=== PATIENT | male | born 1955 | race Two or more races ===

== ENCOUNTER 2023-11-02 20:59 | Inpatient (IN) ==
[2023-11-02 21:46] LABS: Basophils # (auto) 0.03 K/uL (0.00-0.20); Basophils % (auto) 0.9 %; Eosinophils # (auto) 0.12 K/uL (0.00-0.50); Eosinophils % (auto) 3.7 %; Hematocrit (blood only) 26.6 % (42.0-52.0); Hemoglobin 7.6 g/dl (14.0-18.0); Immature Granulocytes # (auto) 0.02 K/uL (0.01-0.20); Immature Granulocytes % (auto) 0.6 %; Lymphocytes # (auto) 0.85 K/uL (1.20-3.40); Lymphocytes % (auto) 26.3 %; Mean Corpuscular Hemoglobin 21.5 pg (25.0-34.0); Mean Corpuscular Hgb Conc 28.6 g/dL (32.0-36.0); Mean Corpuscular Volume 75.1 fL (80.0-100.0); Mean Platelet Volume 9.7 fL (9.4-12.4); Monocytes # (auto) 0.32 K/uL (0.11-0.59); Monocytes % (auto) 9.9 %; Neutrophils # (auto) 1.89 K/uL (1.40-6.50); Neutrophils % (auto) 58.6 %; Platelet Count 102 K/uL (130-400); RDW Coefficient of Variation 21.8 % (11.5-14.5); Red Blood Count 3.54 M/uL (4.70-6.10); White Blood Count 3.23 K/ul (4.8-10.8)
[2023-11-02 21:51] LABS: Potassium 4.5 mmol/L (3.5-5.1)
[2023-11-02 21:58] LABS: Troponin I High Sensitivity 9.5 pg/ml (0-20)
[2023-11-02 22:06] LABS: INR 1.1 (0.9-1.1); Partial Thromboplastin Time 27 Seconds (21-31); Prothrombin Time 12.1 Seconds (9.0-12.0)
[2023-11-02 22:07] LABS: Thyroid Stimulating Hormone 0.311 uIu/ml (0.300-4.500)
[2023-11-02] MEDS: PANTOprazole 40 MG in SYRINGE 0 ML IV ONE (22:13)
[2023-11-02 22:22] LABS: Hypochromasia Present
[2023-11-02 22:33] LABS: Albumin Globulin Ratio 1.1 (0.9-2); Albumin Level 3.9 gm/dl (3.4-5.0); BUN Creatinine Ratio 16.4 (10-20); Bilirubin,Total 0.5 mg/dl (0.2-1.0); Calcium 9.4 mg/dl (8.6-10.3); Creatinine Clr Calc Pharmacy 74.6 ml/min; Est GFR (African American) 74.6 ml/min; Est GFR (Non-African American) 64.3 ml/min; Globulin 3.7 gm/dl (2.5-4.0); Magnesium 1.8 mg/dl (1.7-2.4); Total Protein 7.6 gm/dl (6.0-8.3)
--- NOTE | 2023-11-02 22:35 | Emergency Department Note ---
History of Present Illness General Chief complaint: Dizziness Stated complaint: HEMOGLOBIN LOW Time Seen by Provider: 11/02/23 21:49 History of Present Illness This 68-year-old male with diabetes anemia and cirrhosis presents ER complaining of lightheadedness and dizziness with anemia. Patient states he feels off balance and unsteady with his gait. He has to walk with a walker. Last blood transfusion was a year ago. He recently started on iron. He is currently being worked up by the shaft repairer for his anemia. Patient denies chest pain, fever, chills, current leg swelling. At the beginning the month his H&H was 6.9 and 24 at [facility]. No black or blood in the stool. Home Medications Medication Instructions Recorded Confirmed Type aspirin 81 mg capsule 81 mg PO DAILY 05/28/23 10/14/23 History atorvastatin 10 mg tablet 10 mg PO DAILY 05/28/23 10/14/23 History ezetimibe 10 mg tablet 10 mg PO DAILY 05/28/23 10/14/23 History meclizine 12.5 mg tablet 12.5 mg PO TID PRN Dizziness 05/28/23 10/14/23 History metformin 500 mg tablet 500 mg PO BID 05/28/23 10/14/23 History metoprolol succinate 50 mg 50 mg PO DAILY 05/28/23 10/14/23 History tablet,extended release 24 hr multivitamin 1 tab PO DAILY 05/28/23 10/14/23 History pantoprazole 40 mg tablet,delayed 40 mg PO DAILY 05/28/23 10/14/23 History release quetiapine 25 mg tablet 25 mg PO HS 05/28/23 10/14/23 History valsartan 40 mg tablet 40 mg PO DAILY 05/28/23 10/14/23 History levocetirizine 5 mg tablet 5 mg PO DAILY PRN allergy symptoms 07/15/23 10/14/23 Rx #30 tabs umeclidinium 62.5 mcg-vilanterol 1 inh inhalation DAILY #60 ea 07/15/23 10/14/23 Rx 25 mcg/actuation powdr for inhalation (Anoro Ellipta) zolpidem 5 mg tablet 5 mg PO HS PRN sleep 08/01/23 10/14/23 History finasteride 5 mg tablet 5 mg PO DAILY #30 tabs 10/14/23 10/14/23 Rx tamsulosin 0.4 mg capsule 0.4 mg PO HS #30 caps 10/14/23 10/14/23 Rx Allergies Allergy/AdvReac Type Severity Reaction Status Date / Time NKA AdvReac Mild none Uncoded 10/14/23 13:45 Past Med/Surg History Problem List (Updated 11/03/23 @ 00:15 by Ludy Lepe PA-C) Anemia (Acute) Dizziness (Acute) Ex-smoker Exertional shortness of breath Urinary frequency Medical History Allergic rhinitis with postnasal drip Insomnia COPD with emphysema Lower urinary tract symptoms (LUTS) Urinary incontinence Surgical History S/P placement of cardiac pacemaker Family History Other No pertinent family history Social History Smoking Status: Former smoker Tobacco Type: Cigarettes Age Started Using Tobacco: 19; Age Quit Using Tobacco: 62; packs per day: 1; Second Hand Exposure: Yes; Do You Dip or Chew Tobacco: No; Hx Alcohol Use: Yes (none since 12/21/23) Hx Substance Use: No Preferred Language: Faroese Feels Safe at Home: Yes Review of Systems A total of 10 systems reviewed and were otherwise negative Physical Exam Vital Signs Vital Signs - 24 hr 11/02/23 21:03 11/02/23 22:39 Temperature 36.5 C Temperature Source Temporal Artery Scan Pulse Rate 70 Pulse Rate [Finger] 68 Respiratory Rate 18 18 Respiratory Effort / Characteristics Non-Labored Spontaneous Non-Labored Spontaneous Respiratory Depth Normal Normal Blood Pressure 137/79 Blood Pressure Mean 98 Blood Pressure Position Sitting Pulse Oximetry 98 97 Oxygen Delivery Method Room Air Room Air Sepsis Recent Fever Within 48 Hours No Sepsis New/Unexplained Change in Mental Status N/A Sepsis Action Taken by Nursing No Action Required VITALS: Vitals are noted on the nurse's note and reviewed by myself. Vital signs stable. GENERAL: Pleasant patient, in no acute distress, nondiaphoretic, well-developed well-nourished. SKIN: Capillary reflex less than 2 seconds. HEENT: Normocephalic. PERRLA. EOMI. Nares patent. Mucous membranes moist. Neck is supple without nuchal rigidity. HEART: Regular rate and rhythm LUNGS: Clear to auscultation bilaterally without wheezes, rales or rhonchi. No retractions or accessory muscle use. ABDOMEN: Positive bowel sounds x 4. Normal tympanic percussion. Soft, nontender, without masses or organomegaly. Roberts sign negative. No guarding or rebound tenderness. no CVA tenderness MUSCULOSKELETAL: No gross musculoskeletal defects. NEURO: Patient was alert and oriented to person place and time. No focal neurological deficits. Course Administered Medications Discontinued Medications Pantoprazole Sodium 40 mg/ (Syringe) 10 mls @ 5 mls/min IV NOW ONE Stop: 11/02/23 22:00 Last Admin: 11/02/23 22:13 Dose: 5 mls/min Documented By: STANLEY Ioversol (Optiray 320 125ml) 125 ml IV ONCE ONE Stop: 11/02/23 23:06 Last Admin: 11/02/23 23:05 Dose: 118 ml Documented By: DENISE Medical Decision Making Medical Records Attestation: I reviewed the patient's medical records. Home Medications Current Medication List: was personally reviewed by me Laboratory Data Attestation: I reviewed the patient's lab results. 11/02/23 21:20 11/02/23 21:20 Lab Results 11/02/23 11/02/23 Range/Units 21:20 22:27 WBC 3.23 L (4.8-10.8) K/ul RBC 3.54 L (4.70-6.10) M/uL Hgb 7.6 L (14.0-18.0) g/dl Hct 26.6 L (42.0-52.0) % MCV 75.1 L (80.0-100.0) fL MCH 21.5 L (25.0-34.0) pg MCHC 28.6 L (32.0-36.0) g/dL RDW Std Deviation 58.0 H (36.4-46.3) fL RDW Coeff of Facundo 21.8 H (11.5-14.5) % Plt Count 102 L (130-400) K/uL MPV 9.7 (9.4-12.4) fL Immature Gran % (Auto) 0.6 % Neut % (Auto) 58.6 % Lymph % (Auto) 26.3 % [place] % (Auto) 9.9 % Eos % (Auto) 3.7 % Baso % (Auto) 0.9 % Neut # (Auto) 1.89 (1.40-6.50) K/uL Lymph # (Auto) 0.85 L (1.20-3.40) K/uL [place] # (Auto) 0.32 (0.11-0.59) K/uL Eos # (Auto) 0.12 (0.00-0.50) K/uL Baso # (Auto) 0.03 (0.00-0.20) K/uL Immature Gran # (Auto) 0.02 (0.01-0.20) K/uL Hypochromasia Present PT 12.1 H (9.0-12.0) Seconds INR 1.1 (0.9-1.1) APTT 27 (21-31) Seconds PTT Ratio 1.0 Sodium 138 (136-145) mmol/L Potassium 4.5 (3.5-5.1) mmol/L Chloride 108 H (98-107) mmol/L Carbon Dioxide 25 (21-32) mmol/L Anion Gap 5 (3-11) BUN 19 (6-23) mg/dl Creatinine 1.16 (0.6-1.4) mg/dl Est Cr Clr Drug Dosing 74.6 ml/min Est GFR ( Amer) 74.6 ml/min Est GFR (Non-Af Amer) 64.3 ml/min BUN/Creatinine Ratio 16.4 (10-20) Glucose 160 H (70-99(Fasting)) mg/dl Calcium 9.4 (8.6-10.3) mg/dl Magnesium 1.8 (1.7-2.4) mg/dl Total Bilirubin 0.5 (0.2-1.0) mg/dl AST 29 (13-39) U/L ALT 18 (7-52) U/L Alkaline Phosphatase 66 (34-104) U/L Troponin I High Sens 9.5 (0-20) pg/ml Total Protein 7.6 (6.0-8.3) gm/dl Albumin 3.9 (3.4-5.0) gm/dl Globulin 3.7 (2.5-4.0) gm/dl Albumin/Globulin Ratio 1.1 (0.9-2) TSH 0.311 (0.300-4.500) uIu/ml Blood Type A Positive Antibody Screen NEGATIVE Imaging Data Attestation: I personally reviewed and interpreted this imaging study as follows: Radiologist's Impression: Head CT 11/02/23 21:59 CR Exam(s): CT HEAD Without Contrast EXAM: CT Head Without Intravenous Contrast CLINICAL HISTORY: Reason for exam: neuro deficit, acute stroke suspected. TECHNIQUE: Axial computed tomography images of the head/brain without intravenous contrast. CTDI is 34.77 mGy and DLP is 624.41 mGy-cm. Automated exposure control was utilized for the study. A dose lowering technique was utilized adhering to the principles of ALARA. COMPARISON: CTA brain: 08/01/2023 FINDINGS: Diagnostic sensitivity of the exam is reduced by the motion artifact. Brain: Probably two subacute/old lacunar infarcts of the left basal ganglia, these are new since prior comparison. There is no acute intracranial hemorrhage, mass-effect or midline shift. Mild/moderate cerebral atrophy with widening of the extra-axial spaces and ventricular dilatation. There is no extra-axial fluid collections. Bones/joints: Unremarkable. No acute fracture. Soft tissues: Unremarkable. Sinuses: Unremarkable as visualized. No acute sinusitis. Mastoid air cells: Unremarkable as visualized. No mastoid effusion. Atherosclerotic calcified plaques of the intracranial arteries. IMPRESSION: Probably two subacute/old lacunar infarcts of the left basal ganglia. Clinical correlation recommended. Otherwise no acute intracranial abnormality noted. Chronic involutional changes of the brain. . Communications: Call Doctor Stroke Electronically signed by: Renate Martinez MD, DABR 11/03/23 00:57 AM Head CTA 11/02/23 21:59 CR Exam(s): CTA HEAD With Contrast IV Amt: 118 ML OPTIRAY 320 EXAM: CT Angiography Head With Intravenous Contrast CLINICAL HISTORY: Reason for exam: neuro deficit, acute stroke suspected. TECHNIQUE: Axial computed tomographic angiography images of the head with intravenous contrast. CTDI is 31.14 mGy and DLP is 15.57 mGy-cm. Automated exposure control was utilized for the study. A dose lowering technique was utilized adhering to the principles of ALARA. MIP reconstructed images were created and reviewed. CONTRAST: Patient received 118 ML OPTIRAY 320 of IV contrast COMPARISON: CTA head: 08/01/2023. CT brain: 11/02/2023 FINDINGS: Motion artifact. CTA [place] does not demonstrate large vessel occlusion, significant stenosis or aneurysm. Right vertebral artery: Unremarkable as visualized. Left vertebral artery: Unremarkable as visualized. Basilar artery: Unremarkable. No occlusion or significant stenosis. No aneurysm. . IMPRESSION: No large vessel occlusion, significant stenosis or aneurysm. . Communications: Call Doctor Stroke Electronically signed by: Renate Martinez MD, DABR 11/03/23 00:39 AM Neck CTA 11/02/23 21:59 CR Exam(s): CTA NECK With Contrast IV Amt: 118 ML OPTIRAY 320 EXAM: CT Angiography Neck With Intravenous Contrast CLINICAL HISTORY: Reason for exam: neuro deficit, acute stroke suspected. TECHNIQUE: Routine carotid CT angiography protocol was performed with intravenous contrast. NASCET criteria using the distal ICAs for comparison were used for evaluation of stenoses. CTDI is 13.32 mGy and DLP is 533.26 mGy-cm. Automated exposure control was utilized for the study. A dose lowering technique was utilized adhering to the principles of ALARA. MIP reconstructed images were created and reviewed. CONTRAST: Patient received 118 ML OPTIRAY 320 of IV contrast COMPARISON: 08/01/2019 FINDINGS: Motion-induced image degradation. VASCULATURE: A 3.8 cm ectatic ascending aorta. Calcified plaques of the aortic arch. Right common carotid artery: Unremarkable. No occlusion or significant stenosis. No dissection. Right internal carotid artery: Atherosclerotic calcification with moderate grade stenosis in the clinoid segment of the right ICA.. Extracranial ICA segment: No occlusion or dissection. Right external carotid artery: No occlusion. Right vertebral artery: Atherosclerotic calcification at the origin of the right vertebral artery with moderately high-grade stenosis.. No occlusion. No dissection. Left common carotid artery: No occlusion or significant stenosis. No dissection. Calcified plaques of the carotid bulb. Left internal carotid artery: Atheromatous calcification at the proximal left ICA. Moderate stenosis of the left glenoid/supraclinoid ICA.. Extracranial segment is with no occlusion. No dissection. Left external carotid artery: No occlusion. Left vertebral artery: Atherosclerotic calcification at the origin of the left vertebral artery with moderately high-grade stenosis. No occlusion. No dissection. NECK: Bones/joints: No acute fracture. Multilevel moderate degenerative spondylitic changes. Soft tissues: Unremarkable. Lung apices: Pulmonary emphysema. [place] thickening/mild dilatation/mild bronchiectasis. Other findings: A 1.8 cm right thyroid low-density nodule. A somewhat dilated/patulous air-filled esophagus. CAROTID STENOSIS REFERENCE USING NASCET CRITERIA: % ICA stenosis = (1 - narrowest ICA diameter/diameter of distal cervical ICA) x 100. Mild - <50% stenosis. Moderate - 50-69% stenosis. Severe - 70-94% stenosis. Near occlusion - 95-99% stenosis. Occluded - 100% stenosis. IMPRESSION: . Moderately high-grade stenosis within the clinoid segments of the right and left ICAs secondary to calcified plaques. Moderate grade stenosis at the origin of the vertebral arteries. Moderate degenerative cervical spondylitic changes. A 1.8 cm right thyroid lobe nodule. Sonographic correlation is recommended. Communications: Call Doctor Stroke Electronically signed by: Renate Martinez MD, DABR 11/03/23 00:25 AM MDM Narrative Prior records/ancillary studies reviewed and summarized above. Nursing notes reviewed. Additional history obtained from family. The patient's history was concerning for lightheadedness, dizziness, weakness, anemia. Differential diagnosis: Etiologies such as metabolic, infection, hypo/hyperglycemia, electrolyte abnormalities, cardiac sources, intracerebral event, toxicologic, neurologic, as well as others were entertained. Physical examination: As above. ER treatment provided: IV Lock An order was placed for continuous cardiac monitoring. The monitor shows a rate of 60-100 with a sinus rhythm per my interpretation. Protonix was ordered On reassessment the patient felt better. Diagnostics interpretation by me: ECG: Ordered for dizziness EKG: Atrial paced rhythm nonspecific intraventricular block rate of 68. Impression atrial paced rate of 68 independently interpreted by myself The labs Independently Interpreted by myself revealed stable anemia per chart review Negative troponin Imaging studies: Chest x-ray with no acute consolidation, pneumothorax or free air per my independent interpretation CTs as above Consultation: A consultation was placed with the hospitalist. The case was discussed and diagnostics were reviewed. The patient was evaluated in the ER for further treatment. Exam and history seem consistent with dizziness with difficulty walking and anemia. Imaging is unchanged. MRI was ordered. H&H is stable per chart review. Medicine was consulted and case discussed. Patient admitted to the medical service. By the evaluation outlined above emergent etiologies such as infection, electrolyte abnormalities, cardiac sources, intracerebral event, toxologic, abnormalities blood glucose, metabolic, as well as others were deemed relatively unlikely. The pt informed about the findings as listed above. All questions were answered and pleased with the treatment. The chart was completed utilizing [employer] Speech voice recognition software. Grammatical errors, random word insertions, pronoun errors, and incomplete sentences are an occassional consequence of this system due to software limitations, ambient noise, and hardware issues. Any formal questions or concerns about the content, text, or information contained within the body of this dictation should be directly addressed to the physician tiler's assistant for clarification. Impression & Plan Dizziness, Anemia Discharge Plan Visit Data Chief Complaint: Dizziness Stated Complaint: HEMOGLOBIN LOW ED Provider: Davis Fajardo ED Midlevel Provider: Ludy Lepe Discharge Problem: Dizziness, Anemia Patient Disposition: Admitted As Inpatient Condition: Good Forms Stand Alone Forms: [facility] Code Fever Prescriptions Prescriptions: No Action Anoro Ellipta 62.5-25 mcg/actuation blister with device 1 inh inhalation DAILY Qty: 60 6RF aspirin 81 mg capsule 81 mg PO DAILY atorvastatin 10 mg tablet 10 mg PO DAILY ezetimibe 10 mg tablet 10 mg PO DAILY meclizine 12.5 mg tablet 12.5 mg PO TID PRN (Reason: Dizziness) metformin 500 mg tablet 500 mg PO BID metoprolol succinate 50 mg tablet extended release 24 hr 50 mg PO DAILY multivitamin Tablet 1 tab PO DAILY pantoprazole 40 mg tablet,delayed release (DR/EC) 40 mg PO DAILY quetiapine 25 mg tablet 25 mg PO HS valsartan 40 mg tablet 40 mg PO DAILY levocetirizine 5 mg tablet 5 mg PO DAILY PRN (Reason: allergy symptoms) Qty: 30 0RF Rx Instructions: Take daily for 10 days then PRN finasteride 5 mg tablet 5 mg PO DAILY Qty: 30 5RF tamsulosin 0.4 mg capsule 0.4 mg PO HS Qty: 30 5RF zolpidem 5 mg tablet 5 mg PO HS PRN (Reason: sleep) Referrals Referrals: Charley Garcia DO [Primary Care Provider] -
[2023-11-02] MEDS: OPTIRAY 320 125ml IV ONE (23:05)
--- NOTE | 2023-11-03 00:26 | CT Scan Report ---
Exam(s): CTA NECK With Contrast IV Amt: 118 ML OPTIRAY 320 EXAM: CT Angiography Neck With Intravenous Contrast CLINICAL HISTORY: Reason for exam: neuro deficit, acute stroke suspected. TECHNIQUE: Routine carotid CT angiography protocol was performed with intravenous contrast. NASCET criteria using the distal ICAs for comparison were used for evaluation of stenoses. CTDI is 13.32 mGy and DLP is 533.26 mGy-cm. Automated exposure control was utilized for the study. A dose lowering technique was utilized adhering to the principles of ALARA. MIP reconstructed images were created and reviewed. CONTRAST: Patient received 118 ML OPTIRAY 320 of IV contrast COMPARISON: 08/01/2019 FINDINGS: Motion-induced image degradation. VASCULATURE: A 3.8 cm ectatic ascending aorta. Calcified plaques of the aortic arch. Right common carotid artery: Unremarkable. No occlusion or significant stenosis. No dissection. Right internal carotid artery: Atherosclerotic calcification with moderate grade stenosis in the clinoid segment of the right ICA.. Extracranial ICA segment: No occlusion or dissection. Right external carotid artery: No occlusion. Right vertebral artery: Atherosclerotic calcification at the origin of the right vertebral artery with moderately high-grade stenosis.. No occlusion. No dissection. Left common carotid artery: No occlusion or significant stenosis. No dissection. Calcified plaques of the carotid bulb. Left internal carotid artery: Atheromatous calcification at the proximal left ICA. Moderate stenosis of the left glenoid/supraclinoid ICA.. Extracranial segment is with no occlusion. No dissection. Left external carotid artery: No occlusion. Left vertebral artery: Atherosclerotic calcification at the origin of the left vertebral artery with moderately high-grade stenosis. No occlusion. No dissection. NECK: Bones/joints: No acute fracture. Multilevel moderate degenerative spondylitic changes. Soft tissues: Unremarkable. Lung apices: Pulmonary emphysema. [place] thickening/mild dilatation/mild bronchiectasis. Other findings: A 1.8 cm right thyroid low-density nodule. A somewhat dilated/patulous air-filled esophagus. CAROTID STENOSIS REFERENCE USING NASCET CRITERIA: % ICA stenosis = (1 - narrowest ICA diameter/diameter of distal cervical ICA) x 100. Mild - <50% stenosis. Moderate - 50-69% stenosis. Severe - 70-94% stenosis. Near occlusion - 95-99% stenosis. Occluded - 100% stenosis. IMPRESSION: . Moderately high-grade stenosis within the clinoid segments of the right and left ICAs secondary to calcified plaques. Moderate grade stenosis at the origin of the vertebral arteries. Moderate degenerative cervical spondylitic changes. A 1.8 cm right thyroid lobe nodule. Sonographic correlation is recommended. Communications: Call Doctor Stroke Electronically signed by: Renate Martinez MD, DABR 11/03/23 00:25 AM
--- NOTE | 2023-11-03 00:41 | CT Scan Report ---
Exam(s): CTA HEAD With Contrast IV Amt: 118 ML OPTIRAY 320 EXAM: CT Angiography Head With Intravenous Contrast CLINICAL HISTORY: Reason for exam: neuro deficit, acute stroke suspected. TECHNIQUE: Axial computed tomographic angiography images of the head with intravenous contrast. CTDI is 31.14 mGy and DLP is 15.57 mGy-cm. Automated exposure control was utilized for the study. A dose lowering technique was utilized adhering to the principles of ALARA. MIP reconstructed images were created and reviewed. CONTRAST: Patient received 118 ML OPTIRAY 320 of IV contrast COMPARISON: CTA head: 08/01/2023. CT brain: 11/02/2023 FINDINGS: Motion artifact. CTA [place] does not demonstrate large vessel occlusion, significant stenosis or aneurysm. Right vertebral artery: Unremarkable as visualized. Left vertebral artery: Unremarkable as visualized. Basilar artery: Unremarkable. No occlusion or significant stenosis. No aneurysm. . IMPRESSION: No large vessel occlusion, significant stenosis or aneurysm. . Communications: Call Doctor Stroke Electronically signed by: Renate Martinez MD, DABR 11/03/23 00:39 AM
--- NOTE | 2023-11-03 00:57 | CT Scan Report ---
Exam(s): CT HEAD Without Contrast EXAM: CT Head Without Intravenous Contrast CLINICAL HISTORY: Reason for exam: neuro deficit, acute stroke suspected. TECHNIQUE: Axial computed tomography images of the head/brain without intravenous contrast. CTDI is 34.77 mGy and DLP is 624.41 mGy-cm. Automated exposure control was utilized for the study. A dose lowering technique was utilized adhering to the principles of ALARA. COMPARISON: CTA brain: 08/01/2023 FINDINGS: Diagnostic sensitivity of the exam is reduced by the motion artifact. Brain: Probably two subacute/old lacunar infarcts of the left basal ganglia, these are new since prior comparison. There is no acute intracranial hemorrhage, mass-effect or midline shift. Mild/moderate cerebral atrophy with widening of the extra-axial spaces and ventricular dilatation. There is no extra-axial fluid collections. Bones/joints: Unremarkable. No acute fracture. Soft tissues: Unremarkable. Sinuses: Unremarkable as visualized. No acute sinusitis. Mastoid air cells: Unremarkable as visualized. No mastoid effusion. Atherosclerotic calcified plaques of the intracranial arteries. IMPRESSION: Probably two subacute/old lacunar infarcts of the left basal ganglia. Clinical correlation recommended. Otherwise no acute intracranial abnormality noted. Chronic involutional changes of the brain. . Communications: Call Doctor Stroke Electronically signed by: Renate Martinez MD, DABR 11/03/23 00:57 AM
--- NOTE | 2023-11-03 01:06 | Emergency Department Note ---
ED Visit Note Patient seen in conjunction with physician service center assistant HPI: Patient 68-year-old male presenting with complaint of lightheadedness and dizziness. Exam: Normal rate, normal rhythm, lungs clear to auscultation, cranial nerves intact, 5 out of 5 muscle strength upper and lower extremities bilaterally, Intact sensation upper and lower extremities bilaterally A&P: Patient had blood work and CT scans of head with and without contrast. Plan for admission to hospital Dx: Dizziness, anemia Dispo: Admit I agree with the physician assistants work-up and treatment plan. Please see their note for more detailed exam findings. I performed a substantive portion of the visit including all aspects of medical decision making. .
--- NOTE | 2023-11-03 01:53 | History & Physical Report ---
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 CTA neck also shows moderate grade stenosis at the origin of the vertebral arteries The patient will be admitted to telemetry for serial cardiac enzymes, serial EKG's, cardiac rhythm monitoring and a 2-D echocardiogram with Dopplers. Most recent echocardiogram on 04/15/2023 with ejection fraction 55%, and grade 1 diastolic dysfunction MRI of brain will be ordered in the a.m. after cardiology and [employer] consults placing AICD in MRI compatible mode Increase atorvastatin from 10 to 40 mg daily Pancytopenia- Hemoglobin was at a low of 6.9 in March, but since has been 7.7 on 07/31, 7.4 and 08/28, and today 7.6 Patient reportedly had begun an outpatient evaluation for anemia For now, order iron studies, reticulocyte panel, B12, folate and peripheral sm ear to begin the process Laboratories could be consistent with MDS Will consult hematology oncology Monomorphic V. tach/status post AICD/ischemic-nonischemic cardiomyopathy/CAD hypertension- Telemetry admission Continue aspirin, metoprolol succinate, valsartan Diabetes mellitus- Hold metformin Check hemoglobin A1c Placed on Accu-Cheks with NovoLog SSI Hyperlipidemia- Change atorvastatin from 10 to 40 mg for high dose Continue Zetia 10 mg daily Check a fasting lipid panel Q fever- Laboratories performed on 08/01/2023 in the emergency department are positive for this diagnosis He had been given 14 days of doxycycline orally Undetermined at this point he contracted Q fever or whether this is a false positive Could consider consult with infectious disease for their opinion History of Present Illness Chief Complaint: The patient is referred to the emergency department from his outpatient physician due to symptoms of lightheadedness and dizziness, and laboratories revealing anemia. Primary Care Provider: Charley Garcia DO The patient is a 67-year-old male with a past medical history including pancytopenia, mixed ischemic/nonischemic cardiomyopathy, CAD, monomorphic V. tach status post AICD, cirrhosis, CVA alcohol abuse, tobacco abuse, hyperlipidemia, BPH, allergic symptoms, diabetes mellitus, hypertension, GERD and COPD. The patient presents to the emergency department as a referral from outpatient office due to persistent symptoms of lightheadedness and dizziness, and laboratories revealing anemia. He presently is undergoing a workup by hematology regarding ongoing pancytopenia. He denies blood loss in urine or sto ol. His daughter reports that since about 1 week ago he has had new found dizziness and ambulatory dysfunction, which appears to be worse at nighttime when he is walking back from the bathroom at nighttime. Allergies Allergy/AdvReac Type Severity Reaction Status Date / Time No Known Allergies Allergy Verified 11/03/23 03:40 Home Medications Medication Instructions Recorded Confirmed Type aspirin 81 mg capsule 81 mg PO DAILY 05/28/23 11/03/23 History atorvastatin 10 mg tablet 10 mg PO DAILY 05/28/23 11/03/23 History ezetimibe 10 mg tablet 10 mg PO DAILY 05/28/23 11/03/23 History meclizine 12.5 mg tablet 12.5 mg PO TID PRN Dizziness 05/28/23 11/03/23 History metformin 500 mg tablet 500 mg PO BID 05/28/23 11/03/23 History metoprolol succinate 50 mg 50 mg PO DAILY 05/28/23 11/03/23 History tablet,extended release 24 hr multivitamin 1 tab PO DAILY 05/28/23 11/03/23 History pantoprazole 40 mg tablet,delayed 40 mg PO DAILY 05/28/23 11/03/23 History release valsartan 40 mg tablet 40 mg PO DAILY 05/28/23 11/03/23 History levocetirizine 5 mg tablet 5 mg PO DAILY PRN allergy symptoms 07/15/23 11/03/23 Rx #30 tabs umeclidinium 62.5 mcg-vilanterol 1 inh inhalation DAILY #60 ea 07/15/23 11/03/23 Rx 25 mcg/actuation powdr for inhalation (Anoro Ellipta) finasteride 5 mg tablet 5 mg PO DAILY #30 tabs 10/14/23 11/03/23 Rx tamsulosin 0.4 mg capsule 0.4 mg PO HS #30 caps 10/14/23 11/03/23 Rx Past Med/Surg History Problem List (Updated 11/03/23 @ 03:29 by Abdoulaye Rodriguez MD) Cerebrovascular accident (CVA) of left basal ganglia Right thyroid nodule BPH w urinary obs/LUTS Hypertension Diabetes mellitus Monomorphic ventricular tachycardia S/P placement of cardiac pacemaker COPD with emphysema CAD (coronary artery disease) Cardiomyopathy History of tobacco abuse History of alcohol abuse Liver cirrhosis Pancytopenia Ambulatory dysfunction Imbalance Anemia (Acute) Dizziness (Acute) Ex-smoker Exertional shortness of breath Urinary frequency Medical History Allergic rhinitis with postnasal drip Insomnia COPD with emphysema Lower urinary tract symptoms (LUTS) Urinary incontinence Surgical History S/P placement of cardiac pacemaker Family History Other No pertinent family history Social History Smoking Status: Former smoker Tobacco Type: Cigarettes Age Started Using Tobacco: 19; Age Quit Using Tobacco: 62; packs per day: 1; Second Hand Exposure: Yes; Do You Dip or Chew Tobacco: No; Hx Alcohol Use: Yes (none since 12/21/23) Hx Substance Use: No Preferred Language: [place] Feels Safe at Home: Yes Review of Systems Review of Systems: The patient denies chest pain, palpitations, shortness of breath, dyspnea on exertion, cough, lower extremity swelling, sore throat, fevers, chills, sweats, nausea, vomiting, diarrhea , constipation, abdominal pain, pelvic pain, blood in urine or stool, dysuria, urinary frequency or urgency, memory loss, loss of consciousness, rash, abnormal bruising or bleeding, focal weakness, numbness or tingling in arms or legs, generalized arthralgias or myalgias, back or neck pain, or night sweats. The review of systems is otherwise negative other than for that already noted above, and at least 10 systems have been reviewed. Physical Exam Physical Exam: The patient is awake, alert and oriented 3, well developed and well nourished, normocephalic and atraumatic, lying in bed and in no acute distress. HEENT--PERRL, EOMI, mucous membranes and oropharynx normal. Neck--supple. No JVD. No bruits. Thyroid normal, trachea midline, no adenopathy. Heart--normal S1 and S2. No murmurs, rubs or gallops. Lungs--clear bilaterally, no respiratory distress, no accessory muscle use. Abdomen--normal bowel sounds and soft. Nontender. Nondistended, no hernias or masses, no organomegaly. Extremities--No edema. Dermatologic--normal skin turgor, normal color, no abnormal lymph nodes, no rash. Neurologic--cranial nerves II through XII grossly intact. Rheumatologic--normal range of motion. Psychiatric--normal affect. Results & Data Results & Data Vital Signs (Past 12 Hours) Vital Signs Temp Pulse Pulse Resp BP Pulse Ox O2 Del Method 11/02/23 22:39 68 18 97 Room Air 11/02/23 21:03 36.5 C 70 18 137/79 98 Room Air Laboratory Results Laboratory Results WBC 3.23 K/ul (4.8-10.8) L 11/02/23 21:20 RBC 3.54 M/uL (4.70-6.10) L 11/02/23 21:20 Hgb 7.6 g/dl (14.0-18.0) L 11/02/23 21:20 Hct 26.6 % (42.0-52.0) L 11/02/23 21:20 MCV 75.1 fL (80.0-100.0) L 11/02/23 21:20 MCH 21.5 pg (25.0-34.0) L 11/02/23 21:20 MCHC 28.6 g/dL (32.0-36.0) L 11/02/23 21:20 RDW Std Deviation 58.0 fL (36.4-46.3) H 11/02/23 21:20 RDW Coeff of Facundo 21.8 % (11.5-14.5) H 11/02/23 21:20 Plt Count 102 K/uL (130-400) L 11/02/23 21:20 MPV 9.7 fL (9.4-12.4) 11/02/23 21:20 Immature Gran % (Auto) 0.6 % 11/02/23 21:20 Neut % (Auto) 58.6 % 11/02/23 21:20 Lymph % (Auto) 26.3 % 11/02/23 21:20 [place] % (Auto) 9.9 % 11/02/23 21:20 Eos % (Auto) 3.7 % 11/02/23 21:20 Baso % (Auto) 0.9 % 11/02/23 21:20 Neut # (Auto) 1.89 K/uL (1.40-6.50) 11/02/23 21:20 Lymph # (Auto) 0.85 K/uL (1.20-3.40) L 11/02/23 21:20 [place] # (Auto) 0.32 K/uL (0.11-0.59) 11/02/23 21:20 Eos # (Auto) 0.12 K/uL (0.00-0.50) 11/02/23 21:20 Baso # (Auto) 0.03 K/uL (0.00-0.20) 11/02/23 21:20 Immature Gran # (Auto) 0.02 K/uL (0.01-0.20) 11/02/23 21:20 Hypochromasia Present 11/02/23 21:20 PT 12.1 Seconds (9.0-12.0) H 11/02/23 21:20 INR 1.1 (0.9-1.1) 11/02/23 21:20 APTT 27 Seconds (21-31) 11/02/23 21:20 PTT Ratio 1.0 11/02/23 21:20 Sodium 138 mmol/L (136-145) 11/02/23 21:20 Potassium 4.5 mmol/L (3.5-5.1) 11/02/23 21:20 Chloride 108 mmol/L (98-107) H 11/02/23 21:20 Carbon Dioxide 25 mmol/L (21-32) 11/02/23 21:20 Anion Gap 5 (3-11) 11/02/23 21:20 BUN 19 mg/dl (6-23) 11/02/23 21:20 Creatinine 1.16 mg/dl (0.6-1.4) 11/02/23 21:20 Est Cr Clr Drug Dosing 74.6 ml/min 11/02/23 21:20 Est GFR ( Amer) 74.6 ml/min 11/02/23 21:20 Est GFR (Non-Af Amer) 64.3 ml/min 11/02/23 21:20 BUN/Creatinine Ratio 16.4 (10-20) 11/02/23 21:20 Glucose 160 mg/dl (70-99(Fasting)) H 11/02/23 21:20 Calcium 9.4 mg/dl (8.6-10.3) 11/02/23 21:20 Magnesium 1.8 mg/dl (1.7-2.4) 11/02/23 21:20 Total Bilirubin 0.5 mg/dl (0.2-1.0) 11/02/23 21:20 AST 29 U/L (13-39) 11/02/23 21:20 ALT 18 U/L (7-52) 11/02/23 21:20 Alkaline Phosphatase 66 U/L (34-104) 11/02/23 21:20 Troponin I High Sens 9.5 pg/ml (0-20) 11/02/23 21:20 Total Protein 7.6 gm/dl (6.0-8.3) 11/02/23 21:20 Albumin 3.9 gm/dl (3.4-5.0) 11/02/23 21:20 Globulin 3.7 gm/dl (2.5-4.0) 11/02/23 21:20 Albumin/Globulin Ratio 1.1 (0.9-2) 11/02/23 21:20 TSH 0.311 uIu/ml (0.300-4.500) 11/02/23 21:20 Blood Type A Positive 11/02/23 22:27 Antibody Screen NEGATIVE 11/02/23 22:[address] 11/02/23 21:59 CR Exam(s): CT HEAD Without Contrast EXAM: CT Head Without Intravenous Contrast CLINICAL HISTORY: Reason for exam: neuro deficit, acute stroke suspected. TECHNIQUE: Axial computed tomography images of the head/brain without intravenous contrast. CTDI is 34.77 mGy and DLP is 624.41 mGy-cm. Automated exposure control was utilized for the study. A dose lowering technique was utilized adhering to the principles of ALARA. COMPARISON: CTA brain: 08/01/2023 FINDINGS: Diagnostic sensitivity of the exam is reduced by the motion artifact. Brain: Probably two subacute/old lacunar infarcts of the left basal ganglia, these are new since prior comparison. There is no acute intracranial hemorrhage, mass-effect or midline shift. Mild/moderate cerebral atrophy with widening of the extra-axial spaces and ventricular dilatation. There is no extra-axial fluid collections. Bones/joints: Unremarkable. No acute fracture. Soft tissues: Unremarkable. Sinuses: Unremarkable as visualized. No acute sinusitis. Mastoid air cells: Unremarkable as visualized. No mastoid effusion. Atherosclerotic calcified plaques of the intracranial arteries. IMPRESSION: Probably two subacute/old lacunar infarcts of the left basal ganglia. Clinical correlation recommended. Otherwise no acute intracranial abnormality noted. Chronic involutional changes of the brain. . Communications: Call Doctor Stroke Electronically signed by: Renate Martinez MD, DABR 11/03/23 00:57 AM Head CTA 11/02/23 21:59 CR Exam(s): CTA HEAD With Contrast IV Amt: 118 ML OPTIRAY 320 EXAM: CT Angiography Head With Intravenous Contrast CLINICAL HISTORY: Reason for exam: neuro deficit, acute stroke suspected. TECHNIQUE: Axial computed tomographic angiography images of the head with intravenous contrast. CTDI is 31.14 mGy and DLP is 15.57 mGy-cm. Automated exposure control was utilized for the study. A dose lowering technique was utilized adhering to the principles of ALARA. MIP reconstructed images were created and reviewed. CONTRAST: Patient received 118 ML OPTIRAY 320 of IV contrast COMPARISON: CTA head: 08/01/2023. CT brain: 11/02/2023 FINDINGS: Motion artifact. CTA [place] does not demonstrate large vessel occlusion, significant stenosis or aneurysm. Right vertebral artery: Unremarkable as visualized. Left vertebral artery: Unremarkable as visualized. Basilar artery: Unremarkable. No occlusion or significant stenosis. No aneurysm. . IMPRESSION: No large vessel occlusion, significant stenosis or aneurysm. . Communications: Call Doctor Stroke Electronically signed by: Renate Martinez MD, DABVioletta 11/03/23 00:39 AM Neck CTA 11/02/23 21:59 CR Exam(s): CTA NECK With Contrast IV Amt: 118 ML OPTIRAY 320 EXAM: CT Angiography Neck With Intravenous Contrast CLINICAL HISTORY: Reason for exam: neuro deficit, acute stroke suspected. TECHNIQUE: Routine carotid CT angiography protocol was performed with intravenous contrast. NASCET criteria using the distal ICAs for comparison were used for evaluation of stenoses. CTDI is 13.32 mGy and DLP is 533.26 mGy-cm. Automated exposure control was utilized for the study. A dose lowering technique was utilized adhering to the principles of ALARA. MIP reconstructed images were created and reviewed. CONTRAST: Patient received 118 ML OPTIRAY 320 of IV contrast COMPARISON: 08/01/2019 FINDINGS: Motion-induced image degradation. VASCULATURE: A 3.8 cm ectatic ascending aorta. Calcified plaques of the aortic arch. Right common carotid artery: Unremarkable. No occlusion or significant stenosis. No dissection. Right internal carotid artery: Atherosclerotic calcification with moderate grade stenosis in the clinoid segment of the right ICA.. Extracranial ICA segment: No occlusion or dissection. Right external carotid artery: No occlusion. Right vertebral artery: Atherosclerotic calcification at the origin of the right vertebral artery with moderately high-grade stenosis.. No occlusion. No dissection. Left common carotid artery: No occlusion or significant stenosis. No dissection. Calcified plaques of the carotid bulb. Left internal carotid artery: Atheromatous calcification at the proximal left ICA. Moderate stenosis of the left glenoid/supraclinoid ICA.. Extracranial segment is with no occlusion. No dissection. Left external carotid artery: No occlusion. Left vertebral artery: Atherosclerotic calcification at the origin of the left vertebral artery with moderately high-grade stenosis. No occlusion. No dissection. NECK: Bones/joints: No acute fracture. Multilevel moderate degenerative spondylitic changes. Soft tissues: Unremarkable. Lung apices: Pulmonary emphysema. [place] thickening/mild dilatation/mild bronchiectasis. Other findings: A 1.8 cm right thyroid low-density nodule. A somewhat dilated/patulous air-filled esophagus. CAROTID STENOSIS REFERENCE USING NASCET CRITERIA: % ICA stenosis = (1 - narrowest ICA diameter/diameter of distal cervical ICA) x 100. Mild - <50% stenosis. Moderate - 50-69% stenosis. Severe - 70-94% stenosis. Near occlusion - 95-99% stenosis. Occluded - 100% stenosis. IMPRESSION: . Moderately high-grade stenosis within the clinoid segments of the right and left ICAs secondary to calcified plaques. Moderate grade stenosis at the origin of the vertebral arteries. Moderate degenerative cervical spondylitic changes. A 1.8 cm right thyroid lobe nodule. Sonographic correlation is recommended. Communications: Call Doctor Stroke Electronically signed by: Renate Martinez MD, DABR 11/03/23 00:25 AM Code Status & VTE Plan Code Status Full code VTE Prophylaxis Plan VTE Prophylaxis will be ordered: Yes PG Care Time/CCT Total # of Minutes Spent Total Time Spent with Patient: Total time spent is greater than 50% in coordination of care (as documented) at patient's floor/unit and/or counseling patient: Coding Level of Care Code 73930 INT INP/OBS CARE 3/75MIN Diagnoses Imbalance R26.89 Ambulatory dysfunction R26.2 Pancytopenia D61.818 Liver cirrhosis K74.60 History of alcohol abuse F10.11 History of tobacco abuse Z87.891 Cardiomyopathy I42.9 CAD (coronary artery disease) I25.10 Monomorphic ventricular tachycardia I47.29 S/P placement of cardiac pacemaker Z95.0 COPD with emphysema J43.9 Diabetes mellitus E11.9 Hypertension I10 BPH w urinary obs/LUTS N40.1; N13.8 Right thyroid nodule E04.1 Cerebrovascular accident (CVA) of left basal ganglia I63.81
[2023-11-03] MEDS ORDERED: MECLIZINE 12.5 MG TAB PO PRN (03:36)
[2023-11-03] MEDS ORDERED: GLUCAGON FOR INJ 1 MG VIAL SQ PRN (03:37)
[2023-11-03] MEDS ORDERED: DEXTROSE 50% 50 ML SYRINGE IV PRN (03:37)
[2023-11-03] MEDS ORDERED: GLUCOSE 10 TAB/TUBE PO PRN (03:37)
[2023-11-03] MEDS ORDERED: CARBOHYDRATES FOR HYPOGLYCEMIA PO PRN (03:37)
[2023-11-03] MEDS ORDERED: GLUCOSE 40% GEL 15 GM TUBE PO PRN (03:37)
[2023-11-03 03:42] LABS: Basophils # (auto) 0.04 K/uL (0.00-0.20); Eosinophils # (auto) 0.12 K/uL (0.00-0.50); Hemoglobin 7.4 g/dl (14.0-18.0); Immature Granulocytes # (auto) 0.02 K/uL (0.01-0.20); Immature Granulocytes % (auto) 0.5 %; Immature Retic Fraction 36.9 % (2.3-15.9); Lymphocytes # (auto) 1.12 K/uL (1.20-3.40); Mean Corpuscular Hemoglobin 21.2 pg (25.0-34.0); Mean Corpuscular Hgb Conc 28.5 g/dL (32.0-36.0); Mean Corpuscular Volume 74.5 fL (80.0-100.0); Monocytes # (auto) 0.45 K/uL (0.11-0.59); Monocytes % (auto) 11.3 %; Neutrophils # (auto) 2.25 K/uL (1.40-6.50); Neutrophils % (auto) 56.2 %; Platelet Count 100 K/uL (130-400); RDW Coefficient of Variation 21.8 % (11.5-14.5); RDW Standard Deviation 57.8 fL (36.4-46.3); Red Blood Count 3.49 M/uL (4.70-6.10); Reticulated Hemoglobin 25.5 pg (28.2-36.6); Reticulocyte % 2.07 % (0.50-2.00)
[2023-11-03] MEDS ORDERED: CETIRIZINE HCL 10 MG TABLET PO PRN (03:42)
[2023-11-03 03:58] LABS: Albumin Level 3.8 gm/dl (3.4-5.0); BUN Creatinine Ratio 18.1 (10-20); Bilirubin,Total 0.7 mg/dl (0.2-1.0); Calcium 9.1 mg/dl (8.6-10.3); Creatinine Clr Calc Pharmacy 82.4 ml/min; Est GFR (African American) 84.1 ml/min; Est GFR (Non-African American) 72.6 ml/min; Globulin 3.8 gm/dl (2.5-4.0); Potassium 4.1 mmol/L (3.5-5.1); Total Protein 7.6 gm/dl (6.0-8.3)
[2023-11-03 04:56] LABS: Anisocytosis Present; Hypochromasia Present; Polychromasia 2+; Tear Drop Cells 1+
[2023-11-03 05:19] LABS: Folate (Folic Acid),Ser orPlas 21.52 ng/ml (>5.38)
[2023-11-03 05:23] LABS: INR 1.2 (0.9-1.1); Prothrombin Time 12.6 Seconds (9.0-12.0)
[2023-11-03 07:26] LABS: Estimated Average Glucose 148 mg/dl; Hemoglobin A1C 6.8 % (4.5-5.6)
--- NOTE | 2023-11-03 08:07 | XRay Report ---
SINGLE VIEW CHEST CLINICAL HISTORY: Generalized weakness. FINDINGS: An AP, portable, upright chest radiograph is compared to chest x-ray and chest CT dated 08/14. A 2-lead cardiac AICD is unchanged in position. The heart is enlarged noting atherosclerotic calcification of the thoracic aorta. There is prominence of the pulmonary vasculature. Emphysema and chronic interstitial thickening is similar to previous. Scarring/atelectasis is noted at the lung bas es. No airspace consolidation or large pleural effusion is identified. No pneumothorax is seen. The s keletal structures are osteopenic. There are chronic/healed right-sided rib fractures. IMPRESSION: 1. Cardiomegaly and AICD with prominence of the pulmonary vasculature. Correlate clinically for evide nce of fluid overload/congestive change. 2. Emphysema. 3. No airspace consolidation or large pleural effusion is identified. ACT 112: Negative or not required by law. Electronically signed by: Guanakito Blandon M.D. 11/03/2023 8:05 AM
[2023-11-03] MEDS: EZETIMIBE 10 MG TAB PO SCH (08:30)
[2023-11-03] MEDS: ASPIRIN 81 MG ECTAB PO SCH (08:30)
[2023-11-03] MEDS: ATORVASTATIN 40 MG TAB PO SCH (08:30)
[2023-11-03] MEDS: METOPROLOL SUCC 50MG EXT REL TAB PO SCH (08:31)
[2023-11-03] MEDS: FINASTERIDE 5 MG TAB PO SCH (08:31)
[2023-11-03] MEDS: MULTIVITAMIN TAB PO SCH (08:31)
[2023-11-03] MEDS: PANTOprazole 40 MG TAB PO SCH (08:32)
[2023-11-03] MEDS: UMECLIDINIUM/VILANTEROL 62.5/25MCG 7 PUFFS/INHALER INH SCH (08:33)
--- NOTE | 2023-11-03 08:36 | Electrocardiogram Report ---
Test Reason : Blood Pressure : */* mmHG Vent. Rate : 68 BPM Atrial Rate : 66 BPM P-R Int : 314 ms QRS Dur : 138 ms QT Int : 414 ms P-R-T Axes : * -5 7 degrees QTcB Int : 440 ms Atrial-paced rhythm with prolonged AV conduction with occasional Premature ventricular complexes Non-specific intra-ventricular conduction block Minimal voltage criteria for LVH, may be normal variant ( [place] product ) Abnormal ECG When compared with ECG of 29-Aug-2023 13:15, Premature ventricular complexes are now Present Confirmed by Benjamín Anglin ([id number]) on 11/03/2023 8:36:37 AM Referred By: Confirmed By: Benjamín Anglin
[2023-11-03] MEDS: VALSARTAN 80 MG TAB PO SCH (08:39)
[2023-11-03] MEDS: INSULIN ASPART PER UNIT CHARGE SC SCH ×2 (09:46→21:53)
--- NOTE | 2023-11-03 09:51 | Neurology Consultation ---
Date of Consultation November 03, 2023 Assessment & Plan (1) Imbalance: (2) Dizziness: (3) Idiopathic polyneuropathy: (4) New onset of headaches after age 50: (5) Carotid stenosis, bilateral: Plan This patient is admitted with positional vertiginous and lightheaded feelings li rey secondary to his significant iron deficiency anemia. Despite the CT scan report, I am not convinced he has had any new stroke. The pinpoint lesions were not clear or consistent and may have been present on the previous study (if they are real, they are old). This is backed up by Dr. Blandon radiology. On examination he has no focal findings, meningeal signs, or encephalopathy. The patient does have history of numb feet and balance issues with decreased reflexes distally in the legs. I suspect he has an early polyneuropathy from his diabetes. The polyneuropathy could give him a sensory ataxia, thus affecting his balance Patient had with a recent onset of very brief nonspecific headaches, which come and go (currently not with headaches at all). On CT angiography the patient has had significant distal, right greater than left carotid stenosis and proximal bilateral vertebral stenosis. These would put him at risk for stroke including his history of diabetes, cigarette smoking, and hypertension Recommendations: 1. The patient needs an MRI of the brain before I am willing to call an acute or subacute stroke. We have to see if his pacemaker is compatible 2. Continue 81 mg aspirin tablet daily 3. Consider adding clopidogrel 75 mg a day and go with dual antiplatelet therapy (mostly because of his carotid disease) if he has had a stroke. If he has not had a stroke I would probably switch his aspirin to clopidogrel (because of the vascular disease) 4. When his iron deficiency anemia has improved, his dizziness showed improve also. 5. Physical and Occupational Therapy and increase activity as able. Overall, I spent a total of 90 minutes with this case including review of records, review of CT films, direct evaluation of the patient at bedside, report generation, and discussion of the case with the patient and RN at bedside, Dr. Blandon radiology, and Dr. Clark, including differential diagnosis and treatment options. History of Present Illness Reason for Consultation: Patient is a 68-year-old, who was asked to see at the request of Dr. Clark, for neurologic consultation regarding possible stroke Requesting Physician: Dr. Clark Attending Physician: Shannon Clark MD History of Present Illness This patient has a history of alcoholic cirrhosis and longstanding alcohol usage, stopping alcohol, he tells me, approximately 1 year ago. He has a history of significant anemia and iron deficiency (requiring transfusions back in [place] a year ago), hypertension for the last 15 years, and diabetes for the last 4 to 5 years. He had an NC in 2006 and has COPD with emphysema. Patient tells me that he has been getting brief nonspecific bifrontal headaches lasting a minute at a time which come and go anytime during the day. They are not every day. Recently when he stands up or goes from lying to sitting he can have lightheadedness and vertiginous feelings. He does not feel like he is going to faint and is never passed out. Sometimes the room will spin. This will last for a few seconds. He believes that his legs are weak but has no low back pain. There is no asymmetry to the leg weakness. His toes are numb bilaterally. He denies weakness or numbness in the upper extremities. He has been having significant sleep issues. He came to the emergency room on November 01 at 2103, at the request of his PCP Dr Garcia, because of profound anemia on laboratory studies. At that time he was at [facility] getting groceries. Hemoglobin was 7.6 and hematocrit 26.6. Platelet count was low as was the white count. CHEM profile showed a glucose of 160 and TSH was normal at 0.3. CT scan of the head showed "two subacute infarcts in the left basal ganglia not present in the previous study". There were compared to July 2023. In retrospect at least one of the 2 dots may have been present back then. I reviewed these films and reviewed them with Dr. Colby radiology. We are not convinced that these represent subacute infarcts. CT angiography of the head was unremarkable. CT angiography of the neck revealed high-grade stenosis in the clinoid segments of the right greater than left internal carotid arteries as well as some significant stenosis at the origin of both vertebral arteries. These look similar compared to the previous studies of July 2023. Studies in July 2023 were done because of intermittent headaches. An MRI of the brain was not done. Allergies Allergy/AdvReac Type Severity Reaction Status Date / Time No Known Allergies Allergy Verified 11/03/23 03:40 Home Medications Medication Instructions Recorded Confirmed Type aspirin 81 mg capsule 81 mg PO DAILY 05/28/23 11/03/23 History atorvastatin 10 mg tablet 10 mg PO DAILY 05/28/23 11/03/23 History ezetimibe 10 mg tablet 10 mg PO DAILY 05/28/23 11/03/23 History meclizine 12.5 mg tablet 12.5 mg PO TID PRN Dizziness 05/28/23 11/03/23 History metformin 500 mg tablet 500 mg PO BID 05/28/23 11/03/23 History metoprolol succinate 50 mg 50 mg PO DAILY 05/28/23 11/03/23 History tablet,extended release 24 hr multivitamin 1 tab PO DAILY 05/28/23 11/03/23 History pantoprazole 40 mg tablet,delayed 40 mg PO DAILY 05/28/23 11/03/23 History release valsartan 40 mg tablet 40 mg PO DAILY 05/28/23 11/03/23 History levocetirizine 5 mg tablet 5 mg PO DAILY PRN allergy symptoms 07/15/23 11/03/23 Rx #30 tabs umeclidinium 62.5 mcg-vilanterol 1 inh inhalation DAILY #60 ea 07/15/23 11/03/23 Rx 25 mcg/actuation powdr for inhalation (Anoro Ellipta) finasteride 5 mg tablet 5 mg PO DAILY #30 tabs 10/14/23 11/03/23 Rx tamsulosin 0.4 mg capsule 0.4 mg PO HS #30 caps 10/14/23 11/03/23 Rx Patient History Medical History Allergic rhinitis with postnasal drip Insomnia Lower urinary tract symptoms (LUTS) Urinary incontinence Family History Other No pertinent family history Social History Smoking Status: Former smoker Tobacco Type: Cigarettes Age Started Using Tobacco: 19; Age Quit Using Tobacco: 62; packs per day: 1; Second Hand Exposure: Yes; Do You Dip or Chew Tobacco: No; Hx Alcohol Use: Yes Alcohol type: hard liquor Hx Substance Use: No Preferred Language: Luxembourgish Communication Ability: Effective Calendering Supervisor Required: No Beliefs That Will Affect Care: None Current Living Situation: Family Current Living Situation Comment: Son Feels Safe at Home: Yes Safety Concerns: Feels Safe At This Time Assistive Devices: None and Other Review of Systems Constitutional: + fatigue; no fever and no weakness Eyes: no diplopia, no eye pain and no worsening vision Ear, Nose, Mouth, Throat: no ear pain, no tinnitus, no hearing loss, no dizziness, no snoring, no hoarseness and no dysphagia Respiratory: no cough and no dyspnea Cardiovascular: no chest pain, no palpitations and no lightheadedness Gastrointestinal: no abdominal pain, no nausea and no vomiting Musculoskeletal: no back pain, no neck pain, no radicular pain, no joint pain and no myalgia Integumentary: no rash and no lesions Neurologic: + gait abnormality, + localized weakness and + numbness; no generalized weakness, no tingling, no tremor(s), no abnormal movements, no headache(s), no abnormal speech, no confusion and no memory loss Psychiatric: no depression, no irritability, no anxiety, no difficulty concentrating, no confusion and no hallucinations Endocrine: no fatigue and no flushing Hematologic / Lymphatic: no easy bleeding and no easy bruising Allergy / Immunological: no urticaria and no problem reported Exam (Neuro) Physical Exam: The patient is right-handed. The patient is awake, alert, and attentive. Speech is normal without any aphasia or dysarthria. Mentation and thought processes are intact, with full orientation and normal fund of knowledge. Mood and affect are normal and appropriate. Appearance and grooming are normal. Short and long-term memory are intact. Pupils are 3 mm bilaterally and reactive to light. Extraocular eye muscles are intact without nystagmus. Visual acuity and visual rushing seem normal grossly to confrontation. There are no deficits to sensation in the face in all 3 distributions of the fifth cranial nerve bilaterally. Corneal reflexes are positive bilaterally. Facial strength and symmetry was normal bilaterally. Hearing seems intact grossly to voice and finger rub bilaterally. Palate moves well without asymmetry. There is normal sternocleidomastoid and trapezius strength bilaterally. Tongue is midline with good strength bilaterally. Neck has a full range of motion without discomfort. There are no cervical bruits bilaterally. There are no cranial or ocular bruits. Heart is without murmur. There is a regular rhythm and rate. Cervical, thoracic, and lumbar spine are nontender to palpation. Gait is narrow based, with good arm swing, turns, and stance. Stance sitting up is normal. The patient did not get any vertigo or lightheadedness with going to a sitting position or sitting to standing. With outstretched arms there is no drift. There are no resting, postural, or action tremors. There is no ataxia with finger to nose testing. There is good facility in the hands. No other abnormal involuntary movements are noted. Motor strength is 5/5 diffusely in the arms bilaterally including deltoids, biceps, triceps, brachioradialis, wrist flexors and extensors, plastic printer, and intrinsic hand muscles. Motor strength is 5/5 diffusely in the legs bilaterally including hip flexors, quadriceps, hamstrings, gastrocnemius, tibialis anterior, tibialis posterior, and Peroneii muscles bilaterally. Toe extensors are normal and there is good bulk in the extensor digitorum brevis muscles bilaterally. The limbs have good tone without rigidity or spasticity. There is no atrophy noted in the muscles. Muscle bulk is normal, there is no tenderness to palpation, no myotonia to percussion, and no fasciculations seen. Sensory examination is intact to touch and pin throughout all 4 limbs diffusely. Reflexes are 1/4 in the biceps, triceps, brachioradialis, and quadriceps tendons bilaterally. Achilles tendon reflexes were absent bilaterally. Toes are downgoing with plantar stimulation bilaterally. Peripheral pulses are present and of normal quality distally in all 4 limbs. There is no peripheral edema noted in the limbs. Results & Data Vital Signs (Past 12 Hours) Vital Signs Temp Pulse Pulse Resp BP Pulse Ox Pulse Ox 11/03/23 08:27 61 15 122/66 97 11/03/23 04:30 71 11/03/23 03:00 36.6 C 62 18 134/75 97 11/03/23 03:00 97 11/03/23 02:00 65 18 133/90 99 11/02/23 22:39 68 18 97 O2 Del Method O2 Del Method 11/03/23 08:27 Room Air 11/03/23 04:30 11/03/23 03:00 Room Air 11/03/23 03:00 Room Air 11/03/23 02:00 Room Air 11/02/23 22:39 Room Air PG Care Time/CCT Total # of Minutes Spent Total Time Spent with Patient: Total time spent is greater than 50% in coordination of care (as documented) at patient's floor/unit and/or counseling patient: Coding Level of Care Code 77660 INT INP/OBS CARE MIN Diagnoses Imbalance R26.89 Dizziness R42 Idiopathic polyneuropathy G60.9 New onset of headaches after age 50 R51.9 Carotid stenosis, bilateral I65.23 Time Spent (min) 90
--- NOTE | 2023-11-03 15:45 | Communication Note ---
Date of Service: November 03, 2023 Please refer to the H&P dictated earlier this morning for details of presentation on admission. In brief, the patient has been dealing with dizziness and lightheadedness for about a year. He had blood work done revealing anemia for which his PCP advised him to present to the emergency room. He had a CT head done that showed some findings concerning for left basal ganglia stroke. Neurology does not believe that this is a new stroke, however an MRI has not been done yet. He has a pacemaker. I received a [place] text from Modesta Ogden stating that the pacemaker is MRI compatible. She however recommended that it get interrogated prior to the MRI being done. I ordered a pacemaker interrogation. Once the interrogation is completed, I will order the MRI brain. Per neurology, if the MRI does not show a new stroke, the patient can be switched from aspirin to Plavix. If it does show a new stroke, he will need to be treated with both aspirin and Plavix for 3 weeks followed by only Plavix. From an anemia standpoint, the patient's hemoglobin seems to be at baseline. Hematology has been consulted. Awaiting further recommendations.
[2023-11-03 16:36] LABS: Appearance Urine Clear (Clear); Bilirubin Urine Negative (Negative); Blood Urine Negative (Negative); Color Urine Yellow; Glucose Urine UA 3+ (Negative); Ketones Urine Negative (Negative); Leukocyte Esterase Urine Negative (Negative); Nitrite Urine Negative (Negative); Protein Urine Negative (Negative); Specific Gravity Urine 1.022 (1.000-1.030); Urobilinogen Urine Negative (Negative); pH Urine 6.5 (4.5-7.5)
--- NOTE | 2023-11-03 16:54 | Oncology Consultation ---
Date of Consultation November 03, 2023 Assessment & Plan (1) Ambulatory dysfunction: Plan Pancytopenia likely due to liver cirrhosis with splenomegaly. Also has iron deficiency anemia given low MCV, low serum iron and transferrin saturation.B12 and folate within normal limits. Previously received IV iron while in [place]. -Recommend IV Venofer daily x 3 doses for iron deficiency. -Consider upper endoscopy and colonoscopy in the setting of liver cirrhosis to evaluate for bleeding varices. Will defer to GI -Patient would like bone marrow biopsy to rule out other hematologic malignancy. This is reasonable since he may be a candidate for liver transplant in the future and would probably require bone marrow bx to rule out other causes of pancytopenia.Will see if bone marrow biopsy can be arranged inpatient/outpatient. Thank you for this consult. Will plan to see patient back in clinic upon discharge. Please feel free to call if you have any further questions. History of Present Illness Reason for Consultation: Pancytopenia Attending Physician: Shannon Clark MD History of Present Illness 68 year old with Medical history significant for mixed ischemic/nonischemic cardiomyopathy, CAD, monomorphic V. tach status post AICD, cirrhosis, CVA alcohol abuse, tobacco abuse, hyperlipidemia, BPH, allergic symptoms, diabetes mellitus, hypertension, GERD and COPD. The patient presents to the emergency department as a referral from outpatient office due to persistent symptoms of lightheadedness and dizziness, and laboratories revealing anemia.Presented to the ER [facility] with dizziness. Labs revealed pancytopenia with WBC of 3.2, hemoglobin 7.6, hematocrit 26.6 and MCV of 75.1 with red count of 102,000. CT abdomen and pelvis revealed cirrhotic liver. Brain imaging revealed to subacute/old lacunar infarct of the left basal ganglia. Hematology was consulted for pancytopenia. States that he is being followed by GI at [facility]. Yet to have upper endoscopy/colonoscopy.States that he previously received IV iron in [place] prior to relocating to the [place]. Allergies Allergy/AdvReac Type Severity Reaction Status Date / Time No Known Allergies Allergy Verified 11/03/23 03:40 Home Medications Medication Instructions Recorded Confirmed Type aspirin 81 mg capsule 81 mg PO DAILY 05/28/23 11/03/23 History atorvastatin 10 mg tablet 10 mg PO DAILY 05/28/23 11/03/23 History ezetimibe 10 mg tablet 10 mg PO DAILY 05/28/23 11/03/23 History meclizine 12.5 mg tablet 12.5 mg PO TID PRN Dizziness 05/28/23 11/03/23 History metformin 500 mg tablet 500 mg PO BID 05/28/23 11/03/23 History metoprolol succinate 50 mg 50 mg PO DAILY 05/28/23 11/03/23 History tablet,extended release 24 hr multivitamin 1 tab PO DAILY 05/28/23 11/03/23 History pantoprazole 40 mg tablet,delayed 40 mg PO DAILY 05/28/23 11/03/23 History release valsartan 40 mg tablet 40 mg PO DAILY 05/28/23 11/03/23 History levocetirizine 5 mg tablet 5 mg PO DAILY PRN allergy symptoms 07/15/23 11/03/23 Rx #30 tabs umeclidinium 62.5 mcg-vilanterol 1 inh inhalation DAILY #60 ea 07/15/23 11/03/23 Rx 25 mcg/actuation powdr for inhalation (Anoro Ellipta) finasteride 5 mg tablet 5 mg PO DAILY #30 tabs 10/14/23 11/03/23 Rx tamsulosin 0.4 mg capsule 0.4 mg PO HS #30 caps 10/14/23 11/03/23 Rx Patient History Medical History Allergic rhinitis with postnasal drip Insomnia Lower urinary tract symptoms (LUTS) Urinary incontinence Family History Other No pertinent family history Social History Smoking Status: Former smoker Tobacco Type: Cigarettes Age Started Using Tobacco: 19; Age Quit Using Tobacco: 62; packs per day: 1; Second Hand Exposure: Yes; Do You Dip or Chew Tobacco: No; Hx Alcohol Use: Yes Alcohol type: hard liquor Hx Substance Use: No Preferred Language: Tongan Communication Ability: Effective It Risk And Assurance Senior Manager Required: No Beliefs That Will Affect Care: None Current Living Situation: Family Current Living Situation Comment: Son Feels Safe at Home: Yes Safety Concerns: Feels Safe At This Time Assistive Devices: None and Other Results & Data Vital Signs (Past 12 Hours) Vital Signs Temp Pulse Resp BP Pulse Ox Pulse Ox O2 Del Method 08/20/24 15:00 36.5 C 64 18 111/64 96 Room Air 11/03/23 15:00 96 11/03/23 10:52 65 14 128/66 97 Room Air 11/03/23 08:27 61 15 122/66 97 Room Air O2 Del Method 11/03/23 15:00 11/03/23 15:00 Room Air 11/03/23 10:52 11/03/23 08:27
[2023-11-03] MEDS: IRON SUCROSE 300 MG in SODIUM CHLORIDE 0.9% 250 ML IV ONE (18:35)
[2023-11-03] MEDS: TAMSULOSIN HCL 0.4 MG CAP PO SCH (21:53)
[2023-11-03] MEDS: MELATONIN 3 MG TAB PO PRN (21:53)
[2023-11-04 04:22] LABS: Albumin Level 3.4 gm/dl (3.4-5.0); BUN Creatinine Ratio 17.1 (10-20); Bilirubin,Total 0.6 mg/dl (0.2-1.0); Calcium 8.6 mg/dl (8.6-10.3); Creatinine Clr Calc Pharmacy 78.2 ml/min; Est GFR (African American) 78.7 ml/min; Est GFR (Non-African American) 67.9 ml/min; Globulin 3.5 gm/dl (2.5-4.0); Potassium 3.9 mmol/L (3.5-5.1); Total Protein 6.9 gm/dl (6.0-8.3)
[2023-11-04 04:40] LABS: INR 1.2 (0.9-1.1); Partial Thromboplastin Ratio 1.1; Partial Thromboplastin Time 30 Seconds (21-31); Prothrombin Time 12.9 Seconds (9.0-12.0)
[2023-11-04 04:41] LABS: Hematocrit (blood only) 24.2 % (42.0-52.0); Mean Corpuscular Hemoglobin 21.5 pg (25.0-34.0); Mean Corpuscular Hgb Conc 28.9 g/dL (32.0-36.0); Mean Corpuscular Volume 74.5 fL (80.0-100.0); Platelet Count 90 K/uL (130-400); RDW Coefficient of Variation 21.8 % (11.5-14.5); RDW Standard Deviation 57.4 fL (36.4-46.3); Red Blood Count 3.25 M/uL (4.70-6.10); White Blood Count 2.63 K/ul (4.8-10.8)
[2023-11-04 05:09] LABS: Anisocytosis Present; Basophils # (auto) 0.01 K/uL (0.00-0.20); Basophils % (auto) 0.4 %; Eosinophils # (auto) 0.09 K/uL (0.00-0.50); Eosinophils % (auto) 3.4 %; Lymphocytes % (auto) 30.4 %; Monocytes # (auto) 0.32 K/uL (0.11-0.59); Monocytes % (auto) 12.2 %; Neutrophils # (auto) 1.41 K/uL (1.40-6.50); Neutrophils % (auto) 53.6 %; Platelet Estimate Decreased (Normal); Polychromasia 1+
[2023-11-04] MEDS: ACETAMINOPHEN 1000 MG/100 ML IV IV ONE (09:28)
--- NOTE | 2023-11-04 09:57 | Neurology Progress Note ---
Date of Service November 04, 2023 Assessment & Plan (1) Imbalance: (2) Dizziness: (3) Idiopathic polyneuropathy: (4) New onset of headaches after age 50: (5) Carotid stenosis, bilateral: Plan This patient is admitted with positional vertiginous and lightheaded feelings likely secondary to his significant iron deficiency anemia. Patient has pancytopenia and has been seen by heme-onc. He received 1 of 3 daily treatments of IV iron infusion so far. Despite the CT scan report of November 01, I am not convinced he has had any new stroke. The pinpoint lesions were not clear or consistent, and may have been present on the previous study. Even if they are "real" since they are so hypodense they almost have to be old. I reviewed the films with Dr. Blandon November 02. On examination he has no focal findings, meningeal signs, or encephalopathy. The patient does have history of numb feet and balance issues with decreased reflexes distally in the legs. I suspect he has an early polyneuropathy from his diabetes. The polyneuropathy could give him a sensory ataxia, thus affecting his balance Patient had with a recent onset of very brief nonspecific headaches, which come and go (however, no headaches since admission). On CT angiography the patient had significant distal, right greater than left, carotid stenosis and proximal bilateral vertebral stenosis. These stenoses would put him at risk for stroke, as well as his history of diabetes, cigarette smoking, and hypertension Recommendations: 1. Awaiting MRI of the brain 2. Continue 81 mg aspirin tablet daily 3. If the MRI shows an acute stroke, consider adding clopidogrel 75 mg a day and go with dual antiplatelet therapy. If the MRI does not reveal a stroke, consider switching aspirin to clopidogrel (because of the significant vascular disease) 4. When his iron deficiency anemia has improved, his dizziness should improve also. 5. Physical and Occupational Therapy and increase activity as able. Overall, I spent a total of 35 minutes with this case including review of records, direct evaluation of the patient at bedside, report generation, and discussion of the case with the patient and RN at bedside, and Dr. Clark, including differential diagnosis and treatment options. Admission and Anticipated Discharge Date Admission Date: November 03, 2023 Subjective This morning, post bone marrow biopsy, the patient is doing well with no pain or headache. He has mild pain at the biopsy site, on the left hip Nursing reports no new issues or problems. He received iron last evening. He saw hematology oncology who diagnosed pancytopenia secondary to liver cirrhosis and splenomegaly, as well as iron deficiency anemia. This morning, CBC showed hemoglobin of 7 hematocrit of 24.2. Platelet count was 90 and white count 2.63. Glucose was 127 and liver profile was unremarkable. His pacemaker has been interrogated and cleared for MRI. He is getting the MRI later this morning Results & Data Vital Signs (Past 12 Hours) Vital Signs Temp Pulse Pulse Resp BP BP Pulse Ox 11/04/23 07:39 36.8 C 64 18 107/63 96 11/04/23 03:40 36.7 C 64 18 101/54 L 93 11/03/23 23:44 60 11/03/23 22:57 36.7 C 61 16 102/56 L 99 O2 Del Method 11/04/23 07:39 Room Air 11/04/23 03:40 Room Air 11/03/23 23:44 11/03/23 22:57 Room Air Exam (Neuro) Physical Exam: He is awake and alert. Speech is without obvious aphasia or dysarthria. Mood is normal and affect is appropriate. Thought processes are normal to conversation. Extraocular eye muscles are intact without nystagmus. There is no facial droop. Tongue is midline. With outstretched arms there is no drift. There is no resting, postural, or action tremors and there is no ataxia with finger-nose testing. Motor strength is 5/5 diffusely in all major muscle groups in the arms both proximally and distally. Leg strength is 5/5 diffusely bilaterally as well. The patient can walk, narrow-based, without too much difficulty although he is somewhat cautious. PG Care Time/CCT Total # of Minutes Spent Total Time Spent with Patient: Total time spent is greater than 50% in coordination of care (as documented) at patient's floor/unit and/or counseling patient: Coding Level of Care Code 01421 SUB INP/OBS CARE 2/35MIN Diagnoses Imbalance R26.89 Dizziness R42 Idiopathic polyneuropathy G60.9 New onset of headaches after age 50 R51.9 Carotid stenosis, bilateral I65.23 Time Spent (min) 35
--- NOTE | 2023-11-04 11:11 | Gastrointestinal Consultation ---
Date of Consultation November 04, 2023 Assessment & Plan (1) Liver cirrhosis: (2) Anemia: Plan 67 year old male with a past medical history including pancytopenia, mixed ischemic/nonischemic cardiomyopathy, CAD, monomorphic V. tach status post AICD, CVA, alcohol abuse, tobacco abuse, hyperlipidemia, BPH, allergic symptoms, diabetes mellitus, hypertension, GERD and COPD presented to the ED for dizziness/lightheaded and anemia. He has been having hematologic work up for pancytopenia. s/p bone marrow biopsy today. He had imaging suggestive of cirrhosis which he tells me is new. Suspect that the cirrhosis is secondary to long history of alcohol use. - recommended continued alcohol cessation. - he will need follow up labs/imaging for cirrhosis every 6 months as an outpatient. - he will need eventual EGD and colonoscopy to further evaluate anemia. I will discuss further with Dr. Garcia. - continue with hematology evaluation of pancytopenia. Supervising Physician Co-Signing Physician Notes I personally saw and examined the patient. I have reviewed the chart and agree with the documentation provided by the DEFECT REPAIRER GLASSWARE including discussion about the assessment, treatment and plan. Briefly, 67 year old male with a past medical history including pancytopenia, mixed ischemic/nonischemic cardiomyopathy, CAD, monomorphic V. tach status post AICD, CVA, alcohol abuse, tobacco abuse, hyperlipidemia, BPH, allergic symptoms, diabetes mellitus, hypertension, GERD and COPD who p/with LH and dizziness in setting of hgb 6.3. NO bleeding. S/p bm bx. Will plan for EGD and colonoscopy in am. Spoke with pt and daughter. DDX: polyps > mass, gave, phg, avms, and need to r/o varices. History of Present Illness Reason for Consultation: anemia, consider EGD/colonoscopy Requesting Physician: Shannon Clark MD Attending Physician: Shannon Clark MD History of Present Illness Patient is a 67 year old male with a past medical history including pancytopenia, mixed ischemic/nonischemic cardiomyopathy, CAD, monomorphic V. tach status post AICD, CVA, alcohol abuse, tobacco abuse, hyperlipidemia, BPH, allergic symptoms, diabetes mellitus, hypertension, GERD and COPD. The patient presented to the emergency department on 11/02 as a referral from outpatient office due to persistent symptoms of lightheadedness and dizziness, and laboratories revealing anemia. He presently is undergoing a workup by hematology regarding ongoing pancytopenia and had bone marrow biopsy today. He denies blood loss in urine or stool. heartburn controlled as outpatient with protonix 40mg daily. he denies any history of cirrhosis though admits he has a history of drinking 4- 5 glasses of whiskey daily and had done so for about 20 years. He quit this last year. Patient denies any current issues with nausea, vomiting, dysphagia, abdominal pain, unintentional weight loss, change in bowels, melena, or bright red blood per rectum. he has never had a colonoscopy or EGD. he tells me that he was evaluated somewhere in [place] about 3-4 years ago to have one but he never did. He does not have a GI that he sees regularly. 11/04/23 hgb 7, plts 90, INR 1.2, BUN/creatinine normal 10/29/23 US Cirrhotic liver. No solid hepatic lesions identified. 1.1 cm left hepatic lobe cyst. No biliary ductal dilatation status post cholecystectomy. Partially obscured pancreas. Allergies Allergy/AdvReac Type Severity Reaction Status Date / Time No Known Allergies Allergy Verified 11/03/23 03:40 Home Medications Medication Instructions Recorded Confirmed Type aspirin 81 mg capsule 81 mg PO DAILY 05/28/23 11/03/23 History atorvastatin 10 mg tablet 10 mg PO DAILY 05/28/23 11/03/23 History ezetimibe 10 mg tablet 10 mg PO DAILY 05/28/23 11/03/23 History meclizine 12.5 mg tablet 12.5 mg PO TID PRN Dizziness 05/28/23 11/03/23 History metformin 500 mg tablet 500 mg PO BID 05/28/23 11/03/23 History metoprolol succinate 50 mg 50 mg PO DAILY 05/28/23 11/03/23 History tablet,extended release 24 hr multivitamin 1 tab PO DAILY 05/28/23 11/03/23 History pantoprazole 40 mg tablet,delayed 40 mg PO DAILY 05/28/23 11/03/23 History release valsartan 40 mg tablet 40 mg PO DAILY 05/28/23 11/03/23 History levocetirizine 5 mg tablet 5 mg PO DAILY PRN allergy symptoms 07/15/23 11/03/23 Rx #30 tabs umeclidinium 62.5 mcg-vilanterol 1 inh inhalation DAILY #60 ea 07/15/23 11/03/23 Rx 25 mcg/actuation powdr for inhalation (Anoro Ellipta) finasteride 5 mg tablet 5 mg PO DAILY #30 tabs 10/14/23 11/03/23 Rx tamsulosin 0.4 mg capsule 0.4 mg PO HS #30 caps 10/14/23 11/03/23 Rx Patient History Medical History Allergic rhinitis with postnasal drip Insomnia Lower urinary tract symptoms (LUTS) Urinary incontinence Family History Other No pertinent family history Social History Smoking Status: Former smoker Tobacco Type: Cigarettes Age Started Using Tobacco: 19; Age Quit Using Tobacco: 62; packs per day: 1; Second Hand Exposure: Yes; Do You Dip or Chew Tobacco: No; Hx Alcohol Use: Yes Alcohol type: hard liquor Hx Substance Use: No Preferred Language: Indian Communication Ability: Effective Pediatric Oncology Nurse Required: No Beliefs That Will Affect Care: None Current Living Situation: Family Current Living Situation Comment: Son Feels Safe at Home: Yes Assistive Devices: None and Other Review of Systems Review of Systems: All systems reviewed & are unremarkable except as noted in HPI & below Physical Exam Constitutional: WD/WN, vitals as above Respiratory: normal respiratory effort, lungs clear to auscultation Cardiovascular: Rate/Rhythm: regular rate and regular rhythm Gastrointestinal (Abdomen): normal bowel sounds, soft, nontender, no hepatosplenomegaly Psychiatric: Orientation: alert and oriented x 3 Affect: euthymic affect Results & Data Vital Signs (Past 12 Hours) Vital Signs Temp Pulse Pulse Resp BP BP Pulse Ox 11/04/23 09:49 97.7 F 61 16 102/62 95 11/04/23 07:39 98.2 F 64 18 107/63 96 11/04/23 03:40 98.1 F 64 18 101/54 L 93 11/03/23 23:44 60 O2 Del Method 11/04/23 09:49 Room Air 11/04/23 07:39 Room Air 11/04/23 03:40 Room Air 11/03/23 23:44 [place] [address] INT INP/OBS CARE MIN Patient Type New Diagnoses Liver cirrhosis K74.60 Anemia D64.9
[2023-11-04] MEDS ORDERED: SODIUM CHLORIDE 0.9% 250 ML IV PRN (11:37)
--- NOTE | 2023-11-04 13:24 | Magnetic Resonance Report ---
MR brain wo con CLINICAL HISTORY: eval for acute stroke TECHNIQUE: Multiplanar and multisequence MR images of the brain were obtained without intravenous con trast. Comparison: None available at the time of this dictation. FINDINGS: No abnormal restricted diffusion is identified. The white matter is unremarkable. The ventricular sys tem is normal in appearance. No mass is seen. There is no mass effect or midline shift. There is no e vidence of acute intraparenchymal hemorrhage. No extra axial fluid collections are seen. The corpus c allosum, pituitary gland, and cerebellar tonsils appear grossly unremarkable. Flow voids of the major intracranial arterial vessels are identified. The imaged portions of the para nasal sinuses, mastoid air cells, and orbits are unremarkable. IMPRESSION: No acute abnormality and in particular no evidence of acute infarct. ACT 112: Negative or not required by law. Electronically signed by: Joby Scales M.D. 11/04/2023 1:22 PM
--- NOTE | 2023-11-04 13:33 | CT Scan Report ---
CT-GUIDED BONE MARROW BIOPSY CLINICAL HISTORY: Pancytopenia PROCEDURE: Procedure and risks were explained. Informed consent was obtained. A final timeout was com pleted. The patient was placed prone on the CT exam table. The left gluteal region was prepped and dr aped in sterile fashion. 1% lidocaine was utilized for skin anesthesia. The patient received 1 g Tyle nol IV. Utilizing CT guidance, an 11-gauge bone biopsy needle was advanced into the left iliac bone. Multiple aspirates and one bone core was obtained and given to the lab for review. The needle was removed and Band-Aid applied. The patient tolerated the procedure well. Vital signs will be monitored on the sami or. IMPRESSION: Bone marrow biopsy as above. Performed, dictated, and signed by Brett Lockwood PA-C; to be co-signed by Dr. Joby Scales. Electronically signed by: Joby Scales M.D. 11/04/2023 8:22 PM
--- NOTE | 2023-11-04 14:33 | Anesthesiology Consultation ---
Date of Service November 04, 2023 Assessment & Plan Chart Review Chart Review: Acceptable Risk for Surgery, Patient NOT seen in Pre Admission Testing and entry level java developer initiated Consults Requested none Proposed Anesthesia Anesthesia Type: MAC History Surgery Operation Date: 11/05/23 16:30 Proposed Procedures p Colonoscopy EGD Jose Garcia MD Height/Weight Height: 6 ft 4 in Weight: 87.2 kg Allergies Allergy/AdvReac Type Severity Reaction Status Date / Time No Known Allergies Allergy Verified 11/03/23 03:40 Medications Home Medications Medication Instructions Recorded Confirmed Last Taken aspirin 81 mg capsule 81 mg PO DAILY 05/28/23 11/03/23 Unknown atorvastatin 10 mg tablet 10 mg PO DAILY 05/28/23 11/03/23 Unknown ezetimibe 10 mg tablet 10 mg PO DAILY 05/28/23 11/03/23 Unknown meclizine 12.5 mg tablet 12.5 mg PO TID PRN Dizziness 05/28/23 11/03/23 Unknown metformin 500 mg tablet 500 mg PO BID 05/28/23 11/03/23 Unknown metoprolol succinate 50 mg 50 mg PO DAILY 05/28/23 11/03/23 Unknown tablet,extended release 24 hr multivitamin 1 tab PO DAILY 05/28/23 11/03/23 Unknown pantoprazole 40 mg tablet,delayed 40 mg PO DAILY 05/28/23 11/03/23 Unknown release valsartan 40 mg tablet 40 mg PO DAILY 05/28/23 11/03/23 Unknown levocetirizine 5 mg tablet 5 mg PO DAILY PRN allergy symptoms 07/15/23 11/03/23 Unknown #30 tabs umeclidinium 62.5 mcg-vilanterol 1 inh inhalation DAILY #60 ea 07/15/23 11/03/23 Unknown 25 mcg/actuation powdr for inhalation (Anoro Ellipta) finasteride 5 mg tablet 5 mg PO DAILY #30 tabs 10/14/23 11/03/23 Unknown tamsulosin 0.4 mg capsule 0.4 mg PO HS #30 caps 10/14/23 11/03/23 Unknown Active Medications Generic Name Dose Route Start Last Admin Trade Name Freq PRN Reason Stop Dose Admin Aspirin 81 mg 11/03/23 09:00 11/04/23 08:31 Aspirin 81 Mg Ectab PO 12/03/23 08:59 81 mg DAILY AIDA Administration Atorvastatin Calcium 40 mg 11/03/23 09:00 11/04/23 08:30 Atorvastatin 40 Mg Tab PO 12/03/23 08:59 40 mg DAILY AIDA Administration Ezetimibe 10 mg 11/03/23 09:00 11/04/23 08:31 Ezetimibe 10 Mg Tab PO 12/03/23 08:59 10 mg DAILY AIDA Administration Finasteride 5 mg 11/03/23 09:00 11/04/23 08:30 Finasteride 5 Mg Tab PO 12/03/23 08:59 5 mg DAILY AIDA Administration Insulin Aspart 0 units 11/03/23 21:00 11/04/23 12:58 Insulin Aspart Per Unit Charge SC 12/03/23 20:59 Not Given ACHS AIDA Melatonin 3 mg 11/03/23 21:26 11/03/23 21:53 Melatonin 3 Mg Tab PO 12/03/23 21:25 3 mg HS PRN Administration Sleep Metoprolol Succinate 50 mg 11/03/23 09:00 11/04/23 08:31 Metoprolol Succ 50mg Ext Rel Tab PO 12/03/23 08:59 50 mg DAILY AIDA Administration Multivitamins 1 tab 11/03/23 09:00 11/04/23 08:31 Multivitamin Tab PO 12/03/23 08:59 1 tab QAM AIDA Administration Pantoprazole Sodium 40 mg 11/03/23 09:00 11/04/23 08:32 Pantoprazole 40 Mg Tab PO 12/03/23 08:59 40 mg DAILY AIDA Administration Tamsulosin HCl 0.4 mg 11/03/23 21:00 11/03/23 21:53 Tamsulosin Hcl 0.4 Mg Cap PO 12/03/23 20:59 0.4 mg HS AIDA Administration Umeclidinium/Vilanterol 1 puffs 11/03/23 09:00 11/04/23 10:22 Umeclidinium/Vilanterol 62.5/25mcg 7 Puffs/Inhaler INH 12/03/23 08:59 Not Given DAILY AIDA Valsartan 40 mg 11/03/23 09:00 11/04/23 08:30 Valsartan 80 Mg Tab PO 12/03/23 08:59 40 mg DAILY AIDA Administration Past Medical History Medical History Allergic rhinitis with postnasal drip Insomnia Lower urinary tract symptoms (LUTS) Urinary incontinence Past Family History Family History Other No pertinent family history Social History Smoking Status: Former smoker Do You Dip or Chew Tobacco: No Hx Alcohol Use: Yes Alcohol type: hard liquor alcohol intake frequency: 3 or more drinks per day Hx Substance Use: No Physical Exam Vital Signs Last Vital Signs Temp 37.2 C 11/04/23 11:17 Pulse 61 11/04/23 11:17 Resp 18 11/04/23 11:17 BP 110/66 11/04/23 11:17 Pulse Ox 97 11/04/23 11:17 O2 Del Method Room Air 11/04/23 11:17 Testing Laboratory Results 11/04/23 03:36 11/04/23 03:36 PT 12.9 Seconds (9.0-12.0) H 11/04/23 03:36 INR 1.2 (0.9-1.1) H 11/04/23 03:36 APTT 30 Seconds (21-31) 11/04/23 03:36 Hemoglobin A1c 6.8 % (4.5-5.6) H 11/03/23 03:18 Urine Color Yellow 11/03/23 16:15 Urine Appearance Clear (Clear) 11/03/23 16:15 Urine pH 6.5 (4.5-7.5) 11/03/23 16:15 Ur Specific [place] 1.022 (1.000-1.030) 11/03/23 16:15 Urine Protein Negative (Negative) 11/03/23 16:15 Urine Glucose (UA) 3+ (Negative) H 11/03/23 16:15 Urine Ketones Negative (Negative) 11/03/23 16:15 Urine Nitrite Negative (Negative) 11/03/23 16:15 Ur Leukocyte Esterase Negative (Negative) 11/03/23 16:15 Blood Type A Positive 11/02/23 22:27 Antibody Screen NEGATIVE 11/02/23 22:27 11/04/23 11/04/23 12:16 08:05 POC Glucose 194 H 145 H Electrocardiogram Date: 11/02/23 Atrial paced rhythm at 68 bbpm. Prolonged AV conduction. Occ PVCs.
--- NOTE | 2023-11-04 15:35 | Hospitalist Progress Note ---
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 As his PCP sent him to the emergency room. In the ER, CT showed findings suggestive of acute stroke. ? Left basal ganglia CVA- MRI was negative for any acute stroke Neurology agrees that the patient most likely did not have any new stroke Neurology recommends switching him over from aspirin to Plavix because of his vasculopathy. Will hold off on the switch until anemia workup is completed CT angio neck shows moderately high-grade stenosis in right and left ICAs. He will need follow-up with vascular surgery Anemia Upon arrival to the emergency room, hemoglobin was found to be at baseline Today hemoglobin is slightly low Will transfuse a unit of blood Heme-onc involved. They think that this could be due to cirrhosis causing splenomegaly leading to pancytopenia GI consulted for EGD/colonoscopy. Likely procedures tomorrow Bone marrow biopsy completed today Monitor CBC in a.m. Monomorphic V. tach/status post AICD/ischemic-nonischemic cardiomyopathy/CAD hypertension- Telemetry admission Continue metoprolol succinate, valsartan Once anemia workup completed, may consider switching from aspirin to Plavix as per neurology recommendation Diabetes mellitus- Hold metformin A1c 6.8 Placed on Accu-Cheks with NovoLog SSI Hyperlipidemia- Change atorvastatin from 10 to 40 mg for high dose. May reduce to 10 mg home dose upon discharge Continue Zetia 10 mg daily Q fever- Laboratories performed on 08/01/2023 in the emergency department are positive for this diagnosis He had been given 14 days of doxycycline orally Undetermined at this point he contracted Q fever or whether this is a false positive Could consider consult with infectious disease for their opinion Admission and Anticipated Discharge Date Admission Date: November 03, 2023 Subjective Patient feels well overall. Denies dizziness today. He had just gotten back from his bone marrow biopsy during my encounter. Review of Systems Review of Systems: All systems reviewed & are unremarkable except as noted in Subjective Physical Exam Physical Exam: General: Awake, conversant Heart: S1, S2/regular rate and rhythm, no murmur rubs or gallops Lungs: Clear to auscultation bilaterally. Normal effort Abdomen: Soft/nontender/nondistended. No hepatosplenomegaly Extremities: No clubbing/cyanosis. No edema Behavior: Appropriate, cooperative Results & Data Results & Data Vital Signs (Past 12 Hours) Vital Signs Temp Pulse Pulse Resp BP BP BP 11/04/23 14:52 71 12 110/65 11/04/23 14:32 37.5 C 63 121/73 11/04/23 11:17 37.2 C 61 18 110/66 11/04/23 09:49 36.5 C 61 16 102/62 11/04/23 07:39 36.8 C 64 18 107/63 11/04/23 03:40 36.7 C 64 18 101/54 L Pulse Ox O2 Del Method 11/04/23 14:52 94 11/04/23 14:32 95 11/04/23 11:17 97 Room Air 11/04/23 09:49 95 Room Air 11/04/23 07:39 96 Room Air 11/04/23 03:40 93 Room Air Laboratory Results Abnormal lab results 11/02/23 11/03/23 11/03/23 Range/Units 22:27 16:15 16:58 WBC (4.8-10.8) K/ul RBC (4.70-6.10) M/uL Hgb (14.0-18.0) g/dl Hct (42.0-52.0) % MCV (80.0-100.0) fL MCH (25.0-34.0) pg MCHC (32.0-36.0) g/dL RDW Std Deviation (36.4-46.3) fL RDW Coeff of Facundo (11.5-14.5) % Plt Count (130-400) K/uL Lymph # (Auto) (1.20-3.40) K/uL Immature Gran # (Auto) (0.01-0.20) K/uL Platelet Estimate (Normal) PT (9.0-12.0) Seconds INR (0.9-1.1) Chloride (98-107) mmol/L Glucose (70-99(Fasting)) mg/dl POC Glucose 213 H (70-99) mg/dl Urine Glucose (UA) 3+ H (Negative) Crossmatch See Detail 11/03/23 11/03/23 11/04/23 Range/Units 18:22 20:59 03:36 WBC 2.63 L (4.8-10.8) K/ul RBC 3.25 L (4.70-6.10) M/uL Hgb 7.0 L (14.0-18.0) g/dl Hct 24.2 L (42.0-52.0) % MCV 74.5 L (80.0-100.0) fL MCH 21.5 L (25.0-34.0) pg MCHC 28.9 L (32.0-36.0) g/dL RDW Std Deviation 57.4 H (36.4-46.3) fL RDW Coeff of Facundo 21.8 H (11.5-14.5) % Plt Count 90 L (130-400) K/uL Lymph # (Auto) 0.80 L (1.20-3.40) K/uL Immature Gran # (Auto) 0.00 L (0.01-0.20) K/uL Platelet Estimate Decreased L (Normal) PT 12.9 H (9.0-12.0) Seconds INR 1.2 H (0.9-1.1) Chloride 110 H (98-107) mmol/L Glucose 127 H (70-99(Fasting)) mg/dl POC Glucose 189 H 210 H (70-99) mg/dl Urine Glucose (UA) (Negative) Crossmatch 11/04/23 11/04/23 Range/Units 08:05 12:16 WBC (4.8-10.8) K/ul RBC (4.70-6.10) M/uL Hgb (14.0-18.0) g/dl Hct (42.0-52.0) % MCV (80.0-100.0) fL MCH (25.0-34.0) pg MCHC (32.0-36.0) g/dL RDW Std Deviation (36.4-46.3) fL RDW Coeff of Facundo (11.5-14.5) % Plt Count (130-400) K/uL Lymph # (Auto) (1.20-3.40) K/uL Immature Gran # (Auto) (0.01-0.20) K/uL Platelet Estimate (Normal) PT (9.0-12.0) Seconds INR (0.9-1.1) Chloride (98-107) mmol/L Glucose (70-99(Fasting)) mg/dl POC Glucose 145 H 194 H (70-99) mg/dl Urine Glucose (UA) (Negative) Crossmatch PG Care Time/CCT Total # of Minutes Spent Total Time Spent with Patient: Total time spent is greater than 50% in coordination of care (as documented) at patient's floor/unit and/or counseling patient: Coding Level of Care Code 63862 SUB INP/OBS CARE 2/35MIN Diagnoses Imbalance R26.89 Ambulatory dysfunction R26.2 Pancytopenia D61.818 Liver cirrhosis K74.60 History of alcohol abuse F10.11 History of tobacco abuse Z87.891 Cardiomyopathy I42.9 CAD (coronary artery disease) I25.10 Monomorphic ventricular tachycardia I47.29 S/P placement of cardiac pacemaker Z95.0 COPD with emphysema J43.9 Diabetes mellitus E11.9 Hypertension I10 BPH w urinary obs/LUTS N40.1; N13.8 Right thyroid nodule E04.1 Cerebrovascular accident (CVA) of left basal ganglia I63.81
[2023-11-04] MEDS: LAVAGE SOLUTION 4000ML PO SCH (16:26)
--- NOTE | 2023-11-04 18:36 | Cardiology Consultation ---
Date of Consultation November 04, 2023 Assessment & Plan (1) Dizziness: The etiology of his dizziness is likely multifactorial related to his carotid and vertebral disease as well as the severe anemia. In addition he is on 2 BPH drugs including tamsulosin and finasteride. Unless these medications are needed for urinary retention I would consider Holding both of them since the most common side effect is that of orthostatic hypotension which is only going to contribute to his ambulatory dysfunction and his lower blood pressures. I would consider holding these medications and see how he does off of them and see how he is feeling off the meds. 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 That portion of his cardiomyopathy may improve with his cessation of alcohol. His most recent echo done will be reviewed. I would recommend that he stay on his current medications at this time including metoprolol succinate as well as the valsartan. 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 (3) Status post implantation of automatic cardioverter/defibrillator (AICD): he has a Medtronic dual-chamber ICD which is MRI compatible. His ICD checked this morning was reviewed and there are no acute issues (4) Anemia: the etiology of his anemia is not completely clear whether it is related to GI blood loss perhaps related to esophageal varices versus bone marrow suppression with his alcohol issues versus other etiologies. From a cardiovascular standpoint however I would strongly advocate keeping his hemoglobin above 8 for best myocardial performance. This also I suspect is significantly contributing to his dizziness and ambulatory dysfunction. (5) Imbalance: As noted above. If his GI workup tomorrow is unremarkable I would also advocate switching him over to Plavix however we need to be very careful and watch for falls. (6) Carotid artery disease: I reviewed with the patient and his daughter that he is going to need to see a vascular surgeon. I will make arrangements for him to see Dr. Fernando Quan as an outpatient Dr. Quan is currently out of town but I will see if we can get him scheduled to see him at some point in the next 1 to 2 weeks so he can look at his CAT scans and determine whether or not he requires treatment of his carot id disease and and vertebral disease. In the meantime he should be on either aspirin or Plavix. Plan I will follow the patient along with you while he is here in the hospital. If he is discharged in the next several days I will make sure he has follow-up with myself here in [place] as well as Dr. Quan from a vascular standpoint. This was all discussed with the patient and his daughter and they are very happy that we can follow him here locally as opposed to him having to go to [place] or [place] for follow-up. In addition we can also transfer his ICD care over to our local office. Thank you for allowing us to participate in the care of this very nice gentleman. I look forward to participating in his care with you. History of Present Illness Reason for Consultation: We were asked to evaluate whether he is able to have an MRI due to his dual-keyshawn magali pacer ICD Attending Physician: Shannon Clark MD History of Present Illness Mr. Soriano is a 68-year-old [place] gentleman who has been in the [place] for a little over a year. He has established with cardiology in the [facility] area. Most recently because his moved back to [facility] he has been living in [place]. He has a longstanding history of what I suspect is a combined ischemic nonischemic cardiomyopathy related to prior coronary artery disease dating back to 2006 as well as more recently cardiomyopathy perhaps related to alcohol. He presented to the emergency room at the advice of his physician due to severe anemia he has been having dizziness feeling unsteady and unbalanced and while here was noted to be significantly anemic. From a cardiac standpoint as far as I can tell most recently he has been fairly stable. Back in the late winter his device did show did show an increased fluid trend which was treated with adjustment in his valsartan dose. Also with his pacemaker check back in the spring he was noted to have some short runs of v entricular tachycardia and his device was able to ATP/pace him out of it without requiring defibrillation. while here he also underwent a neurologic workup and his CTA has shown significant bilateral carotid disease as well as vertebral disease which is likely going to require vascular surgery evaluation. He underwent a CT-guided biopsy of the bone marrow today to help to sort out the source of his longstanding anemia. Tomorrow he is scheduled for an EGD and colonoscopy to rule out any GI source of blood loss. Apparently in the past he has had black stools and this is raise the question of perhaps GI blood loss. From a cardiac standpoint he denies any cardiac symptoms of chest discomfort or shortness of breath. He was seen in his room today along with his daughter Tigist. Her phone number is [phone]. I would also previously note that as of a year ago he had been on amiodarone because of ventricular tachycardia however this was stopped and lieu of his significant liver issues. according to the patient and staff he has been alcohol free for nearly 1 year. He has been diagnosed with stage IV liver cirrhosis however. I was also able to review with him and his daughter his prior catheterization which was done in October 2022 back in [facility] that catheterization showed normal left main LAD with fully patent stents in the proximal and mid LAD diagonal vessel had a severe 70% ostial stenosis followed by patent stents with PAKO grade III flow. This was treated medically his circumflex is dominant calcified but with minor atheroma the RCA is nondominant small vessel with a proximal severe 80% stenosis which is also being treated medically. To that catheterization that he underwent his ICD placement when he got to the [facility]. Interestingly there was also documentation of a CTA of his head from a year ago which did not show "" any significant stenosis". His CTA is very different now however. Allergies Allergy/AdvReac Type Severity Reaction Status Date / Time No Known Allergies Allergy Verified 11/03/23 03:40 Home Medications Medication Instructions Recorded Confirmed Type aspirin 81 mg capsule 81 mg PO DAILY 05/28/23 11/03/23 History atorvastatin 10 mg tablet 10 mg PO DAILY 05/28/23 11/03/23 History ezetimibe 10 mg tablet 10 mg PO DAILY 05/28/23 11/03/23 History meclizine 12.5 mg tablet 12.5 mg PO TID PRN Dizziness 05/28/23 11/03/23 History metformin 500 mg tablet 500 mg PO BID 05/28/23 11/03/23 History metoprolol succinate 50 mg 50 mg PO DAILY 05/28/23 11/03/23 History tablet,extended release 24 hr multivitamin 1 tab PO DAILY 05/28/23 11/03/23 History pantoprazole 40 mg tablet,delayed 40 mg PO DAILY 05/28/23 11/03/23 History release valsartan 40 mg tablet 40 mg PO DAILY 05/28/23 11/03/23 History levocetirizine 5 mg tablet 5 mg PO DAILY PRN allergy symptoms 07/15/23 11/03/23 Rx #30 tabs umeclidinium 62.5 mcg-vilanterol 1 inh inhalation DAILY #60 ea 07/15/23 11/03/23 Rx 25 mcg/actuation powdr for inhalation (Anoro Ellipta) finasteride 5 mg tablet 5 mg PO DAILY #30 tabs 10/14/23 11/03/23 Rx tamsulosin 0.4 mg capsule 0.4 mg PO HS #30 caps 10/14/23 11/03/23 Rx Patient History Medical History Allergic rhinitis with postnasal drip Insomnia Lower urinary tract symptoms (LUTS) Urinary incontinence Family History Other No pertinent family history Social History Smoking Status: Former smoker Tobacco Type: Cigarettes Age Started Using Tobacco: 19; Age Quit Using Tobacco: 62; packs per day: 1; Second Hand Exposure: Yes; Do You Dip or Chew Tobacco: No; Hx Alcohol Use: Yes Alcohol type: hard liquor Hx Substance Use: No Preferred Language: Latvian Communication Ability: Effective 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 Beliefs That Will Affect Care: None Current Living Situation: Family Current Living Situation Comment: Son Feels Safe at Home: Yes Assistive Devices: Wheelchair Review of Systems Review of Systems: All systems reviewed & are unremarkable except as noted in HPI & below Respiratory: as per Subjective / HPI Cardiovascular: as per Subjective / HPI Neurologic: as per Subjective / HPI, + gait abnormality, + falls and + dizziness Physical Exam Physical Exam: He is well-developed well-nourished appears his stated age Respiratory: normal respiratory effort, lungs clear to auscultation Cardiovascular: RRR, no murmur, no edema Musculoskeletal: no cyanosis or clubbing, extremities motor strength 5/5 Results & Data Vital Signs (Past 12 Hours) Vital Signs Temp Pulse Pulse Resp BP BP BP 11/04/23 16:37 36.7 C 60 18 125/74 11/04/23 15:37 60 18 116/68 11/04/23 15:07 59 L 18 122/72 11/04/23 14:52 71 12 110/65 11/04/23 14:32 37.5 C 63 121/73 11/04/23 11:17 37.2 C 61 18 110/66 11/04/23 09:49 36.5 C 61 16 102/62 11/04/23 07:39 36.8 C 64 18 107/63 Pulse Ox O2 Del Method 11/04/23 16:37 94 11/04/23 15:37 96 11/04/23 15:07 94 11/04/23 14:52 94 11/04/23 14:32 95 11/04/23 11:17 97 Room Air 11/04/23 09:49 95 Room Air 11/04/23 07:39 96 Room Air Laboratory Results his white blood cell count today was 2.6 hemoglobin 7.0 hematocrit 24.2 platelet count is 90,000. PT is 29.9 INR is 1.2 sodium 140 potassium 3.9 chloride 110 carbon dioxide 25 anion gap 5 BUN 19 creatinine 1.11, glucose 127 liver function test were within normal limits protein level was 6.9 albumin is 3.4 Diagnostic Findings MRI of the brain done today shows no acute infarct VASCULATURE: A 3.8 cm ectatic ascending aorta. Calcified plaques of the aortic arch. Right common carotid artery: Unremarkable. No occlusion or significant stenosis. No dissection. Right internal carotid artery: Atherosclerotic calcification with moderate grade stenosis in the clinoid segment of the right ICA.. Extracranial ICA segment: No occlusion or dissection. Right external carotid artery: No occlusion. Right vertebral artery: Atherosclerotic calcification at the origin of the right vertebral artery with moderately high-grade stenosis.. No occlusion. No dissection. Left common carotid artery: No occlusion or significant stenosis. No dissection. Calcified plaques of the carotid bulb. Left internal carotid artery: Atheromatous calcification at the proximal left ICA. Moderate stenosis of the left glenoid/supraclinoid ICA.. Extracranial segment is with no occlusion. No dissection. Left external carotid artery: No occlusion. Left vertebral artery: Atherosclerotic calcification at the origin of the left vertebral artery with moderately high-grade stenosis. No occlusion. No dissection. NECK: Bones/joints: No acute fracture. Multilevel moderate degenerative spondylitic changes. Soft tissues: Unremarkable. Lung apices: Pulmonary emphysema. [place] thickening/mild dilatation/mild bronchiectasis. Other findings: A 1.8 cm right thyroid low-density nodule. A somewhat dilated/patulous air-filled esophagus. CTA of the carotids shows: ECG Additional Comments: EKG shows atrial paced rhythm there are no acute ST-T wave changes Pacemaker check shows approximately 70% atrial paced rhythm there is little to no ventricular paced rhythm he has had no ventricular arrhythmias recently. (2) Cardiomyopathy Cardiomyopathy type: ischemic Qualified Code(s): I25.5 - Ischemic cardiomyopathy
[2023-11-05 06:10] LABS: Basophils # (auto) 0.02 K/uL (0.00-0.20); Basophils % (auto) 0.7 %; Eosinophils % (auto) 3.4 %; Hematocrit (blood only) 26.6 % (42.0-52.0); Hemoglobin 7.9 g/dl (14.0-18.0); Lymphocytes # (auto) 0.98 K/uL (1.20-3.40); Lymphocytes % (auto) 33.8 %; Mean Corpuscular Hemoglobin 21.9 pg (25.0-34.0); Mean Corpuscular Hgb Conc 29.7 g/dL (32.0-36.0); Mean Corpuscular Volume 73.9 fL (80.0-100.0); Mean Platelet Volume 10.4 fL (9.4-12.4); Monocytes # (auto) 0.31 K/uL (0.11-0.59); Monocytes % (auto) 10.7 %; Neutrophils # (auto) 1.49 K/uL (1.40-6.50); Neutrophils % (auto) 51.4 %; Platelet Count 96 K/uL (130-400); RDW Coefficient of Variation 21.5 % (11.5-14.5)
[2023-11-05 06:32] LABS: Albumin Level 3.7 gm/dl (3.4-5.0); BUN Creatinine Ratio 14.4 (10-20); Bilirubin,Total 0.9 mg/dl (0.2-1.0); Calcium 8.8 mg/dl (8.6-10.3); Creatinine Clr Calc Pharmacy 89.5 ml/min; Est GFR (African American) 92.6 ml/min; Est GFR (Non-African American) 79.9 ml/min; Globulin 3.7 gm/dl (2.5-4.0); Magnesium 1.8 mg/dl (1.7-2.4); Potassium 3.7 mmol/L (3.5-5.1); Total Protein 7.4 gm/dl (6.0-8.3)
[2023-11-05 06:41] LABS: Anisocytosis Present; Polychromasia 3+
[2023-11-05 07:03] LABS: INR 1.2 (0.9-1.1); Partial Thromboplastin Time 28 Seconds (21-31)
[2023-11-05] MEDS ORDERED: SODIUM CHLORIDE 0.9% 250 ML IV PRN (08:30)
--- NOTE | 2023-11-05 08:46 | History & Physical Bridge Note ---
Date of Service November 05, 2023 History & Physical Bridge Note I have examined the patient, reviewed the History & Physical and in the interval since the performance of the History & Physical I have noted the following changes of clinical significance: no changes noted Supervising Physician Co-Signing Physician Notes 68 y/o with cirrhosis and cm cmcad who is here for egd and colonoscopy for profound anemia - hgb 6.8
[2023-11-05] MEDS ORDERED: SIMETHICONE (ENDO) IR PRN (08:47)
--- NOTE | 2023-11-05 09:51 | GI REPORT ---
[facility] Patient: JAZLYN MELENDEZ : 1955 Sex at : Male Age: 68 Years Procedure: Colonoscopy Date: 11/05/2023 Attending Physician: Armando Garcia MD Referring MD: Charley Garcia Do Indications: - Screening for colorectal malignant neoplasm Medications: - Monitored Anesthesia Care Complications: - No immediate complications. Estimated Blood Loss: - Estimated blood loss: None. - Estimated blood loss was minimal. Procedure: - Prior to the procedure, a History and Physical was performed, and patient medications and allergies were reviewed. The patient's tolerance of previous anesthesia was also reviewed. The risks and benefits of the procedure and the sedation options and risks were discussed with the patient. All questions were answered, and informed consent was obtained. Prior Anticoagulants: The patient has taken no anticoagulant or antiplatelet agents. ASA Grade Assessment: III - A patient with severe systemic disease. After reviewing the risks and benefits, the patient was deemed in satisfactory condition to undergo the procedure. - The pediatric colonoscope was introduced through the anus and advanced to the cecum, identified by appendiceal orifice and ileocecal valve. - The colonoscopy was performed without difficulty. - The patient tolerated the procedure well. - The quality of the bowel preparation was adequate. - The appendiceal orifice was photographed. Findings: - Internal hemorrhoids were found during retroflexion. The hemorrhoids were small. - Two sessile polyps were found in the ascending colon. The polyps were medium (7-9 mm) in size. These polyps were removed with a cold snare. Resection and retrieval were complete. - A medium (7-9 mm) polyp was found in the rectum. The polyp was sessile. The polyp was removed with a hot biopsy forceps. Resection and retrieval were complete. Impression: - Internal hemorrhoids. - Two medium (7-9 mm) polyps in the ascending colon, removed with a cold snare. Resected and retrieved. - One medium (7-9 mm) polyp in the rectum, removed with a hot biopsy forceps. Resected and retrieved. Recommendation: - Discharge patient to home (ambulatory). - Resume previous diet. - Continue present medications. - Repeat colonoscopy date to be determined after pending pathology results are reviewed for surveillance based on pathology results. - Return to referring physician as previously scheduled. - Patient has a contact number available for emergencies. The signs and symptoms of potential delayed complications were discussed with the patient. Return to normal activities tomorrow. Written discharge instructions were provided to the patient. Procedure Code(s): - 85405, Colonoscopy, flexible; with removal of tumor(s), polyp(s), or other lesion(s) by snare technique - 89326-42, Colonoscopy, flexible; with removal of tumor(s), polyp(s), or other lesion(s) by hot biopsy forceps Diagnosis Code(s): - Z12.11, Encounter for screening for malignant neoplasm of colon - D12.2, Benign neoplasm of ascending colon - D12.8, Benign neoplasm of rectum - K64.8, Other hemorrhoids CPT(R) - 2023 copyright [employer]. All Rights Reserved. The CPT codes, CCI edits and ICD codes generated are intended as suggestions and were generated based on input data. These codes are preliminary and upon medical record coder review may be revised to meet current compliance and payer requirements. The provider is responsible for the final determination of appropriate codes, and modifiers. Armando Garcia MD This document has been electronically signed. Note Initiated:11/05/2023 Note Completed:11/05/2023 9:51 AM [email or web address]\[email or web address]\Results\LIVE\[id number].pdf
--- NOTE | 2023-11-05 09:56 | GI REPORT ---
[facility] Patient: JAZLYN MELENDEZ : 1955 Sex at : Male Age: 68 Years Procedure: Upper GI endoscopy Date: 11/05/2023 Attending Physician: Armando Garcia MD Referring MD: Charley Garcia Do Indications: - Iron deficiency anemia Medications: - Monitored Anesthesia Care Complications: - No immediate complications. Estimated Blood Loss: - Estimated blood loss: None. - Estimated blood loss was minimal. Procedure: - Prior to the procedure, a History and Physical was performed, and patient medications and allergies were reviewed. The patient's tolerance of previous anesthesia was also reviewed. The risks and benefits of the procedure and the sedation options and risks were discussed with the patient. All questions were answered, and informed consent was obtained. Prior Anticoagulants: The patient has taken no anticoagulant or antiplatelet agents. ASA Grade Assessment: III - A patient with severe systemic disease. After reviewing the risks and benefits, the patient was deemed in satisfactory condition to undergo the procedure. - The egd scope was introduced through the mouth and advanced to the third part of the duodenum. - The upper GI endoscopy was accomplished without difficulty. - The patient tolerated the procedure well. Findings: - A 2 cm hiatal hernia was present. - Diffuse moderate inflammation characterized by erythema was found in the gastric body. - Three 9 mm semi-pedunculated polyps with bleeding and stigmata of recent bleeding were found in the gastric antrum. The polyp was removed with a hot snare. Resection and retrieval were complete. - Clip placed on ulcerated polyp site that was oozing and complete cessation in bleeding. - The examined duodenum was normal. Impression: - 2 cm hiatal hernia. - Acute gastritis, characterized by erythema. - Three gastric polyps. Resected and retrieved. - Clip placed on ulcerated polyp site that was oozing and complete cessation in bleeding. - Normal examined duodenum. Recommendation: - Discharge patient to home (ambulatory). - Resume previous diet. - Continue present medications. - Await pathology results. - Return to primary care physician as previously scheduled. - Patient has a contact number available for emergencies. The signs and symptoms of potential delayed complications were discussed with the patient. Return to normal activities tomorrow. Written discharge instructions were provided to the patient. - Use Protonix (pantoprazole) 40 mg PO BID for 3 months. Procedure Code(s): - 26697, Esophagogastroduodenoscopy, flexible, transoral; with removal of tumor(s), polyp(s), or other lesion(s) by snare technique Diagnosis Code(s): - D50.9, Iron deficiency anemia, unspecified - K44.9, Diaphragmatic hernia without obstruction or gangrene - K29.00, Acute gastritis without bleeding - K31.7, Polyp of stomach and duodenum CPT(R) - 202 copyright [employer]. All Rights Reserved. The CPT codes, CCI edits and ICD codes generated are intended as suggestions and were generated based on input data. These codes are preliminary and upon supervisor sample preparation review may be revised to meet current compliance and payer requirements. The provider is responsible for the final determination of appropriate codes, and modifiers. Armando Garcia MD This document has been electronically signed. Note Initiated:11/05/2023 Note Completed:11/05/2023 9:55 AM [email or web address]\Provation\Results\LIVE\[id number].pdf
--- NOTE | 2023-11-05 10:25 | Anesthesiology Progress Note ---
Date of Service November 05, 2023 Anesthesia Post Procedure Vital Signs Vital Signs: Temp Pulse Pulse Resp BP BP BP 11/05/23 10:11 60 16 133/66 11/05/23 09:56 60 16 113/59 L 11/05/23 09:41 65 16 102/53 L 11/05/23 08:38 36.8 C 60 16 117/56 L 11/05/23 07:39 63 11/05/23 07:32 36.6 C 65 18 145/70 H 11/05/23 02:56 36.5 C 60 18 128/80 11/04/23 22:39 36.6 C 61 18 109/70 11/04/23 20:00 11/04/23 19:14 36.6 C 73 18 104/64 11/04/23 16:37 36.7 C 60 18 125/74 11/04/23 15:37 60 18 116/68 11/04/23 15:07 59 L 18 122/72 11/04/23 14:52 71 12 110/65 11/04/23 14:32 37.5 C 63 121/73 11/04/23 11:17 37.2 C 61 18 110/66 Pulse Ox O2 Del Method 11/05/23 10:11 97 Room Air 11/05/23 09:56 96 Room Air 11/05/23 09:41 97 Room Air 11/05/23 08:38 95 Room Air 11/05/23 07:39 11/05/23 07:32 97 Room Air 11/05/23 02:56 96 Room Air 11/04/23 22:39 95 Room Air 11/04/23 20:00 Room Air 11/04/23 19:14 96 Room Air 11/04/23 16:37 94 11/04/23 15:37 96 11/04/23 15:07 94 11/04/23 14:52 94 11/04/23 14:32 95 11/04/23 11:17 97 Room Air Transfer of Care Handoff Completed per policy Notes Mental Status: alert / awake / arousable and participated in evaluation Patient Amnestic to Procedure: Yes Nausea / Vomiting: adequately controlled Pain: adequately controlled Airway Patency, RR, SpO2: stable & adequate BP & HR: stable & adequate Hydration State: stable & adequate Anesthetic Complications: no major complications apparent
[2023-11-05] MEDS: LIDOCAINE 2% 2 ML VIAL/AMP(20MG/ML) INFIL ONE ×2 (11:40→11:41)
[2023-11-05] MEDS: PROPOFOL IV EMULSION 10 MG/ML 20 ML VIAL IV ONE ×2 (11:41)
--- NOTE | 2023-11-05 14:52 | Hospitalist Progress Note ---
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 As his PCP sent him to the emergency room. In the ER, CT showed findings suggestive of acute stroke. ? Left basal ganglia CVA- MRI was negative for any acute stroke Neurology agrees that the patient most likely did not have any new stroke Neurology recommends switching him over from aspirin to Plavix because of his vasculopathy. Will hold off on the switch until anemia workup is completed CT angio neck shows moderately high-grade stenosis in right and left ICAs. He will need follow-up with vascular surgery Anemia Upon arrival to the emergency room, hemoglobin was found to be at baseline He was transfused a unit of blood on 11/03 as his hemoglobin was lower. Transfused him again 11/04 to achieve goal hemoglobin above 8 Heme-onc involved. They think that this could be due to cirrhosis causing splenomegaly leading to pancytopenia Bone marrow biopsy completed 11/03 EGD and colonoscopy completed today Bleeding gastric polyps were found and removed and cauterized. Colonic and rectal polyps were also found and removed. GI recommended Protonix 40 mg p.o. twice daily for 3 months Will start Plavix tomorrow. GI is okay with Plavix. Communicated via Standard text. Monomorphic V. tach/status post AICD/ischemic-nonischemic cardiomyopathy/CAD hypertension- Telemetry admission Continue metoprolol succinate, valsartan I will switch him from aspirin to Plavix tomorrow as per neurology recommendation Diabetes mellitus- Hold metformin A1c 6.8 Placed on Accu-Cheks with NovoLog SSI Hyperlipidemia- Change atorvastatin from 10 to 40 mg for high dose. May reduce to 10 mg home dose upon discharge Continue Zetia 10 mg daily Q fever- Laboratories performed on 08/01/2023 in the emergency department are positive for this diagnosis He had been given 14 days of doxycycline orally Undetermined at this point he contracted Q fever or whether this is a false positive This can be further looked into outpatient Admission and Anticipated Discharge Date Admission Date: November 03, 2023 Subjective Patient feels well. Denies chest pain or shortness of breath. No dizziness. Review of Systems Review of Systems: All systems reviewed & are unremarkable except as noted in Subjective Physical Exam Physical Exam: General: Awake, conversant Heart: S1, S2/regular rate and rhythm, no murmur rubs or gallops Lungs: Clear to auscultation bilaterally. Normal effort Abdomen: Soft/nontender/nondistended. No hepatosplenomegaly Extremities: No clubbing/cyanosis. No edema Behavior: Appropriate, cooperative Results & Data Results & Data Vital Signs (Past 12 Hours) Vital Signs Temp Pulse Pulse Resp BP BP BP 11/05/23 13:47 36.5 C 64 175/84 H 11/05/23 13:04 36.6 C 61 139/72 11/05/23 12:34 36.6 C 59 L 121/77 11/05/23 12:19 36.5 C 59 L 120/74 11/05/23 12:03 36.6 C 60 124/60 11/05/23 11:49 36.8 C 64 18 155/83 H 11/05/23 11:16 61 147/81 H 11/05/23 10:59 61 143/68 H 11/05/23 10:45 60 141/62 H 11/05/23 10:28 61 134/70 11/05/23 10:11 60 16 133/66 11/05/23 09:56 60 16 113/59 L 11/05/23 09:41 65 16 102/53 L 11/05/23 08:38 36.8 C 60 16 117/56 L 11/05/23 07:39 63 11/05/23 07:32 36.6 C 65 18 145/70 H 11/05/23 02:56 36.5 C 60 18 128/80 Pulse Ox O2 Del Method 11/05/23 13:47 96 11/05/23 13:04 95 11/05/23 12:34 95 11/05/23 12:19 97 11/05/23 12:03 11/05/23 11:49 95 Room Air 11/05/23 11:16 97 Room Air 11/05/23 10:59 96 Room Air 11/05/23 10:45 97 Room Air 11/05/23 10:28 96 Room Air 11/05/23 10:11 97 Room Air 11/05/23 09:56 96 Room Air 11/05/23 09:41 97 Room Air 11/05/23 08:38 95 Room Air 11/05/23 07:39 11/05/23 07:32 97 Room Air 11/05/23 02:56 96 Room Air Laboratory Results Abnormal lab results 11/02/23 11/04/23 11/04/23 Range/Units 22:27 17:09 20:00 WBC (4.8-10.8) K/ul RBC (4.70-6.10) M/uL Hgb (14.0-18.0) g/dl Hct (42.0-52.0) % MCV (80.0-100.0) fL MCH (25.0-34.0) pg MCHC (32.0-36.0) g/dL RDW Std Deviation (36.4-46.3) fL RDW Coeff of Facundo (11.5-14.5) % Plt Count (130-400) K/uL Lymph # (Auto) (1.20-3.40) K/uL Immature Gran # (Auto) (0.01-0.20) K/uL PT (9.0-12.0) Seconds INR (0.9-1.1) Chloride (98-107) mmol/L Glucose (70-99(Fasting)) mg/dl POC Glucose 134 H 163 H (70-99) mg/dl Crossmatch See Detail 11/05/23 11/05/23 11/05/23 Range/Units 05:36 07:16 11:29 WBC 2.90 L (4.8-10.8) K/ul RBC 3.60 L (4.70-6.10) M/uL Hgb 7.9 L (14.0-18.0) g/dl Hct 26.6 L (42.0-52.0) % MCV 73.9 L (80.0-100.0) fL MCH 21.9 L (25.0-34.0) pg MCHC 29.7 L (32.0-36.0) g/dL RDW Std Deviation 57.0 H (36.4-46.3) fL RDW Coeff of Facundo 21.5 H (11.5-14.5) % Plt Count 96 L (130-400) K/uL Lymph # (Auto) 0.98 L (1.20-3.40) K/uL Immature Gran # (Auto) 0.00 L (0.01-0.20) K/uL PT 13.0 H (9.0-12.0) Seconds INR 1.2 H (0.9-1.1) Chloride 109 H (98-107) mmol/L Glucose 107 H (70-99(Fasting)) mg/dl POC Glucose 136 H 130 H (70-99) mg/dl Crossmatch Diagnostic Findings Bone Marrow Biopsy w/ CT 11/03/23 16:52 CT-GUIDED BONE MARROW BIOPSY CLINICAL HISTORY: Pancytopenia PROCEDURE: Procedure and risks were explained. Informed consent was obtained. A final timeout was completed. The patient was placed prone on the CT exam table. The left gluteal region was prepped and draped in sterile fashion. 1% lidocaine was utilized for skin anesthesia. The patient received 1 g Tylenol IV. Utilizing CT guidance, an 11-gauge bone biopsy needle was advanced into the left iliac bone. Multiple aspirates and one bone core was obtained and given to the lab for review. The needle was removed and Band-Aid applied. The patient tolerated the procedure well. Vital signs will be monitored on the floor. IMPRESSION: Bone marrow biopsy as above. Performed, dictated, and signed by Brett Lockwood PA-C; to be co-signed by Dr. Joby Scales. Electronically signed by: Joby Scales M.D. 11/04/2023 8:22 PM PG Care Time/CCT Total # of Minutes Spent Total Time Spent with Patient: Total time spent is greater than 50% in coordination of care (as documented) at patient's floor/unit and/or counseling patient: Coding Level of Care Code 60420 SUB INP/OBS CARE 2/35MIN Diagnoses Imbalance R26.89 Ambulatory dysfunction R26.2 Pancytopenia D61.818 Liver cirrhosis K74.60 History of alcohol abuse F10.11 History of tobacco abuse Z87.891 Ischemic cardiomyopathy I25.5 Cardiomyopathy type: ischemic CAD (coronary artery disease) I25.10 Monomorphic ventricular tachycardia I47.29 S/P placement of cardiac pacemaker Z95.0 COPD with emphysema J43.9 Diabetes mellitus E11.9 Hypertension I10 BPH w urinary obs/LUTS N40.1; N13.8 Right thyroid nodule E04.1 Cerebrovascular accident (CVA) of left basal ganglia I63.81 (7) Cardiomyopathy Cardiomyopathy type: ischemic Qualified Code(s): I25.5 - Ischemic cardiomyopathy
[2023-11-05] MEDS: PANTOprazole 40 MG TAB PO SCH (20:51)
[2023-11-06 07:42] VITALS: BP 132/78; RESP 18; TEMP 98.1; O2SAT 97
[2023-11-06 09:48] LABS: Hematocrit (blood only) 29.6 % (42.0-52.0); Mean Corpuscular Hgb Conc 30.4 g/dL (32.0-36.0); Mean Corpuscular Volume 75.7 fL (80.0-100.0); Mean Platelet Volume 10.1 fL (9.4-12.4); Platelet Count 90 K/uL (130-400); RDW Coefficient of Variation 21.9 % (11.5-14.5); RDW Standard Deviation 58.3 fL (36.4-46.3); Red Blood Count 3.91 M/uL (4.70-6.10); White Blood Count 3.46 K/ul (4.8-10.8)
[2023-11-06 10:09] LABS: BUN Creatinine Ratio 13.5 (10-20); Calcium 8.4 mg/dl (8.6-10.3); Creatinine Clr Calc Pharmacy 97.5 ml/min; Est GFR (African American) 101.8 ml/min; Est GFR (Non-African American) 87.9 ml/min; Potassium 3.8 mmol/L (3.5-5.1)
--- NOTE | 2023-11-06 10:10 | Discharge Summary ---
Date of Service November 06, 2023 Admission HPI Per Admitting Provider The patient is a 67-year-old male with a past medical history including pancytopenia, mixed ischemic/nonischemic cardiomyopathy, CAD, monomorphic V. tach status post AICD, cirrhosis, CVA alcohol abuse, tobacco abuse, h yperlipidemia, BPH, allergic symptoms, diabetes mellitus, hypertension, GERD and COPD. The patient presents to the emergency department as a referral from outpatient office due to persistent symptoms of lightheadedness and dizziness, and laboratories revealing anemia. He presently is undergoing a workup by hematology regarding ongoing pancytopenia. He denies blood loss in urine or stool. His daughter reports that since about 1 week ago he has had new found dizziness and ambulatory dysfunction, which appears to be worse at nighttime when he is walking back from the bathroom at nighttime. Admission Exam Per Admitting Provider The patient is awake, alert and oriented 3, well developed and well nourished, normocephalic and atraumatic, lying in bed and in no acute distress. HEENT--PERRL, EOMI, mucous membranes and oropharynx normal. Neck--supple. No JVD. No bruits. Thyroid normal, trachea midline, no adenopathy. Heart--normal S1 and S2. No murmurs, rubs or gallops. Lungs--clear bilaterally, no respiratory distress, no accessory muscle use. Abdomen--normal bowel sounds and soft. Nontender. Nondistended, no hernias or masses, no organomegaly. Extremities--No edema. Dermatologic--normal skin turgor, normal color, no abnormal lymph nodes, no rash. Neurologic--cranial nerves II through XII grossly intact. Rheumatologic--normal range of motion. Psychiatric--normal affect. Principal Diagnosis Anemia. Multifactorial in etiology. Partly due to cirrhosis causing splenomegaly/pancytopenia, partly due to bleeding gastric polyps. Dizziness. Likely secondary to anemia Gastric and colonic polyps. Removed. Peripheral vascular disease with carotid artery stenosis Cirrhosis Discharge Exam General: Awake, conversant Heart: S1, S2/regular rate and rhythm, no murmur rubs or gallops Lungs: Clear to auscultation bilaterally. Normal effort Abdomen: Soft/nontender/nondistended. No hepatosplenomegaly Extremities: No clubbing/cyanosis. No edema Behavior: Appropriate, cooperative Discharge Data Allergies Allergy/AdvReac Type Severity Reaction Status Date / Time No Known Allergies Allergy Verified 11/03/23 03:40 Consultations 11/03/23 00:33 ED Decision to Admit Stat 11/03/23 02:44 Consult Cardiology Routine Consult Hematology Routine 11/03/23 07:23 Consult Neurology Routine 11/04/23 09:04 Consult Gastroenterology Routine Procedures Performed Operation Date: 11/05/23 16:30 Actual Procedures p Colonoscopy Polypectomy - Armando Garcia MD s EGD Polypectomy - Armando Garcia MD Ordered Studies 11/02/23 21:59 CT angio head w con Stat CT angio neck with con Stat CT head/brain wo con Stat 11/03/23 16:52 IR bone marrow bx & asp Routine 11/04/23 00:00 MR brain wo con Routine Hospital Course (1) Imbalance: (2) Ambulatory dysfunction: (3) Pancytopenia: (4) Liver cirrhosis: (5) History of alcohol abuse: (6) History of tobacco abuse: (7) Cardiomyopathy: (8) CAD (coronary artery disease): (9) Monomorphic ventricular tachycardia: (10) S/P placement of cardiac pacemaker: (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 As his PCP sent him to the emergency room. In the ER, CT showed findings suggestive of acute stroke. ? Left basal ganglia CVA- MRI was negative for any acute stroke Neurology agrees that the patient most likely did not have any new stroke Neurology recommends switching him over from aspirin to Plavix because of his vasculopathy. CT angio neck shows moderately high-grade stenosis in right and left ICAs. He will need follow-up with vascular surgery. Cardiology will arrange for vascular surgery follow-up Anemia Upon arrival to the emergency room, hemoglobin was found to be at baseline He was transfused a unit of blood on 11/03 as his hemoglobin was lower. Tra nsfused him again 11/04 to achieve goal hemoglobin above 8 Heme-onc involved. They think that this could be due to cirrhosis causing splenomegaly leading to pancytopenia Bone marrow biopsy completed 11/03 EGD and colonoscopy completed 11/04 GI bleed due to bleeding gastric polyps treated with GI consultation EGD hot snare resection and clipping. Colonic and rectal polyps were also found and removed. GI recommended Protonix 40 mg p.o. twice daily for 3 months Started Plavix today. GI is okay with Plavix. Communicated via [facility] [place] text. Monomorphic V. tach/status post AICD/ischemic-nonischemic cardiomyopathy/CAD hypertension- Telemetry admission Continue metoprolol succinate, valsartan I will switch him from aspirin to Plavix as per neurology recommendation Diabetes mellitus- Resume home medications A1c 6.8 Hyperlipidemia- Resume home medications Continue Zetia 10 mg daily Q fever- Laboratories performed on 08/01/2023 in the emergency department are positive for this diagnosis He had been given 14 days of doxycycline orally Undetermined at this point he contracted Q fever or whether this is a false positive This can be further looked into outpatient Total Time Total Time Spent Total Time Spent (In Minutes): 35 Discharge Plan Discharge Items Patient Disposition: Home - Self-Care Reason For Visit: RECENT CVA, IMBALANCE, PANCYTOPENIA Discharge Diagnosis: Anemia. Multifactorial in etiology. Partly due to cirrhosis causing splenomegaly/pancytopenia, partly due to bleeding gastric polyps. Dizziness. Likely secondary to anemia Gastric and colonic polyps. Removed. Peripheral vascular disease with carotid artery stenosis Cirrhosis Condition on Discharge: Good Activity: Resume your previous activity Non-emergency contact: Primary Care Provider Call non-emergency contact if: you have any medication questions and your symptoms worsen Follow-up/Referrals: Fernando Quan MD [Physician] - Modesta Ogden DO [Physician] - Charley Garcia DO [Primary Care Provider] - Lyndsay Rosas MD [Physician] - 11/19/23 12:00 pm Diet: Heart Healthy Addtl Attending Provider Instructions: Advised to follow-up with PCP in 1 week Advised to follow-up with cardiology in 1 to 2 weeks. C[facility] Trimmer will call you with an appointment Advised to follow-up with vascular surgery. C[facility] Trimmer will make arrangements for you to see Dr. Quan as outpatient. Advised to note that you will need to see GI outpatient. Your PCP may refer you to a natural sciences department chair. Pending Studies at Discharge: Yes Studies:: Bone marrow biopsy GI biopsies Stand-Alone Forms: Anesthesia/Sedation, Adult, My [facility] Medications and DC Order Prescriptions: New clopidogrel [Plavix] 75 mg tablet 75 mg PO DAILY Qty: 30 0RF pantoprazole [Protonix] [address] for susp in packet 40 mg PO BID 30 Days Qty: 60 0RF Continued Anoro Ellipta 62.5-25 mcg/actuation blister with device 1 inh inhalation DAILY Qty: 60 6RF atorvastatin 10 mg tablet 10 mg PO DAILY ezetimibe 10 mg tablet 10 mg PO DAILY meclizine 12.5 mg tablet 12.5 mg PO TID PRN (Reason: Dizziness) metformin 500 mg tablet 500 mg PO BID metoprolol succinate 50 mg tablet extended release 24 hr 50 mg PO DAILY multivitamin Tablet 1 tab PO DAILY valsartan 40 mg tablet 40 mg PO DAILY levocetirizine 5 mg tablet 5 mg PO DAILY PRN (Reason: allergy symptoms) Qty: 30 0RF Rx Instructions: Take daily for 10 days then PRN finasteride 5 mg tablet 5 mg PO DAILY Qty: 30 5RF tamsulosin 0.4 mg capsule 0.4 mg PO HS Qty: 30 5RF Discontinued aspirin 81 mg capsule 81 mg PO DAILY pantoprazole 40 mg tablet,delayed release (DR/EC) 40 mg PO DAILY Discharge Orders: Discharge Order (Routine); Ordered 11/06/23 Ordered By: Shannon Clark Admission Data Admit Date/Time: 11/03/23 01:53 Attending Provider: Shannon Clark Admit Provider: Abdoulaye Rodriguez Primary Care Provider: Charley Garcia Other Providers: Abdoulaye Rodriguez; Lyndsay Rosas; Paxton Potter; Sivakumar Woods; Armando Garcia Other Interventions: Discharge Summary Assessment (RN) Last Done: 11/06/23 10:12
[2023-11-06 10:15] VITALS: PULSE 60
--- NOTE | 2023-11-06 10:19 | Gastroenterology Progress Note ---
Date of Service November 06, 2023 Assessment & Plan (1) Pancytopenia: Plan: 68 year old male with history of pancytopenia, mixed ischemic/nonischemic cardiomyopathy, CAD, monomorphic V. tach status post AICD, CVA, alcohol abuse, tobacco abuse, hyperlipidemia, BPH, allergic symptoms, diabetes mellitus, hypertension, GERD and COPD w/ imaging showing cirrhosis and anemia s/p EGD/Colonoscopy - Will need OP GI follow up - Pantoprazole 40 mg twice daily for 3 months - MELD labs every 6 months - ABD imaging w/ AFP every 6 months - EGD every 1-2 years - No ETOH - No NSAIDs - Avoid hepatotoxin - Low NA diet, less than 2G daily - Less than 2G acetaminophen containing products daily - ED for emergencies - Please call with any questions or concerns I spent a total of 40 minutes on the date of service in review of patient's record, and previously obtained information in person and appropriate medical visit, discussion and education of plan, with patient and/or caregiver, placing orders for tests/referral/procedures as medically necessary and documentation of pertinent clinical information in patient's medical records for their visit today. Thank you for allowing us to participate in the care of this patient. Please call with any acute changes, questions or concerns. Please see addendum below with additional recommendation from my supervising physician. Admission and Anticipated Discharge Date Admission Date: November 03, 2023 Subjective Feeling well. Denies abd pain, nausea, vomiting. No black or bloody stools. EGD 2023: - 2 cm hiatal hernia. - Acute gastritis, characterized by erythema. - Three gastric polyps. Resected and retrieved. - Clip placed on ulcerated polyp site that was oozing and complete cessation in bleeding. - Normal examined duodenum. Colonoscopy 2023: - Internal hemorrhoids. - Two medium (7-9 mm) polyps in the ascending colon, removed with a cold snare. Resected and retrieved. - One medium (7-9 mm) polyp in the rectum, removed with a hot biopsy forceps. Resected and retrieved. Review of Systems Review of Systems: All other findings negative except as noted in HPI. Physical Exam Constitutional: WD/WN, vitals as above Respiratory: normal respiratory effort, lungs clear to auscultation Cardiovascular: Rate/Rhythm: regular rate and regular rhythm Gastrointestinal (Abdomen): normal bowel sounds, soft, nontender, no hepatosplenomegaly Skin: no rashes, warm and dry Results & Data Results & Data Vital Signs (Past 12 Hours) Vital Signs Temp Pulse Pulse Resp BP Pulse Ox O2 Del Method 11/06/23 07:41 36.7 C 126 H 18 132/78 97 Room Air 11/06/23 02:48 36.5 C 70 20 105/65 94 Room Air 11/05/23 23:11 69 11/05/23 22:27 36.7 C 65 18 125/75 96 Room Air Laboratory Results 11/06/23 11/06/23 11/06/23 Range/Units 09:30 07:19 05:37 WBC 3.46 L (4.8-10.8) K/ul RBC 3.91 L (4.70-6.10) M/uL Hgb 9.0 L (14.0-18.0) g/dl Hct 29.6 L (42.0-52.0) % MCV 75.7 L (80.0-100.0) fL MCH 23.0 L (25.0-34.0) pg MCHC 30.4 L (32.0-36.0) g/dL RDW Std Deviation 58.3 H (36.4-46.3) fL RDW Coeff of Facundo 21.9 H (11.5-14.5) % Plt Count 90 L (130-400) K/uL MPV 10.1 (9.4-12.4) fL APTT Pending PTT Ratio Pending Sodium 138 (136-145) mmol/L Potassium 3.8 (3.5-5.1) mmol/L Chloride 110 H (98-107) mmol/L Carbon Dioxide 25 (21-32) mmol/L Anion Gap 3 (3-11) BUN 12 (6-23) mg/dl Creatinine 0.89 (0.6-1.4) mg/dl Est Cr Clr Drug Dosing 97.5 ml/min Est GFR ( Amer) 101.8 ml/min Est GFR (Non-Af Amer) 87.9 ml/min BUN/Creatinine Ratio 13.5 (10-20) Glucose 202 H (70-99(Fasting)) mg/dl POC Glucose 133 H (70-99) mg/dl Calcium 8.4 L (8.6-10.3) mg/dl Magnesium 1.8 (1.7-2.4) mg/dl Blood Type Antibody Screen Crossmatch 11/05/23 11/05/23 11/05/23 Range/Units 20:13 16:12 11:29 WBC (4.8-10.8) K/ul RBC (4.70-6.10) M/uL Hgb (14.0-18.0) g/dl Hct (42.0-52.0) % MCV (80.0-100.0) fL MCH (25.0-34.0) pg MCHC (32.0-36.0) g/dL RDW Std Deviation (36.4-46.3) fL RDW Coeff of Facundo (11.5-14.5) % Plt Count (130-400) K/uL MPV (9.4-12.4) fL APTT PTT Ratio Sodium (136-145) mmol/L Potassium (3.5-5.1) mmol/L Chloride (98-107) mmol/L Carbon Dioxide (21-32) mmol/L Anion Gap (3-11) BUN (6-23) mg/dl Creatinine (0.6-1.4) mg/dl Est Cr Clr Drug Dosing ml/min Est GFR ( Amer) ml/min Est GFR (Non-Af Amer) ml/min BUN/Creatinine Ratio (10-20) Glucose (70-99(Fasting)) mg/dl POC Glucose 214 H 216 H 130 H (70-99) mg/dl Calcium (8.6-10.3) mg/dl Magnesium (1.7-2.4) mg/dl Blood Type Antibody Screen Crossmatch 11/02/23 Range/Units 22:27 WBC (4.8-10.8) K/ul RBC (4.70-6.10) M/uL Hgb (14.0-18.0) g/dl Hct (42.0-52.0) % MCV (80.0-100.0) fL MCH (25.0-34.0) pg MCHC (32.0-36.0) g/dL RDW Std Deviation (36.4-46.3) fL RDW Coeff of Facundo (11.5-14.5) % Plt Count (130-400) K/uL MPV (9.4-12.4) fL APTT PTT Ratio Sodium (136-145) mmol/L Potassium (3.5-5.1) mmol/L Chloride (98-107) mmol/L Carbon Dioxide (21-32) mmol/L Anion Gap (3-11) BUN (6-23) mg/dl Creatinine (0.6-1.4) mg/dl Est Cr Clr Drug Dosing ml/min Est GFR ( Amer) ml/min Est GFR (Non-Af Amer) ml/min BUN/Creatinine Ratio (10-20) Glucose (70-99(Fasting)) mg/dl POC Glucose (70-99) mg/dl Calcium (8.6-10.3) mg/dl Magnesium (1.7-2.4) mg/dl Blood Type A Positive Antibody Screen NEGATIVE Crossmatch See Detail PG Care Time/CCT Total # of Minutes Spent Total Time Spent with Patient: Total time spent is greater than 50% in coordination of care (as documented) at patient's floor/unit and/or counseling patient: Coding Level of Care Code 14476 SUB INP/OBS CARE 2/35MIN Diagnoses Pancytopenia D61.818
[2023-11-06 14:21] LABS: Partial Thromboplastin Ratio 1.1; Partial Thromboplastin Time 29 Seconds (21-31)
== END 2023-11-06 11:51 | disposition home or self-care (01) | DRG 378 ==
LOC: ED 20:59 → SUATTDRO 11-03 01:53 → EDINP 11-03 01:53 → 4W 11-03 02:44

== ENCOUNTER 2025-01-22 13:06 | Observation (INO) ==
[2025-01-22 13:46] LABS: Hematocrit (blood only) 27.8 % (42.0-52.0); Hemoglobin 8.9 g/dl (14.0-18.0); Immature Granulocytes # (auto) 0.02 K/uL (0.01-0.20); Immature Granulocytes % (auto) 0.8 %; Mean Corpuscular Hemoglobin 31.2 pg (25.0-34.0); Mean Corpuscular Volume 97.5 fL (80.0-100.0); Platelet Count 103 K/uL (130-400); RDW Standard Deviation 53.7 fL (36.4-46.3); Red Blood Count 2.85 M/uL (4.70-6.10); White Blood Count 2.55 K/ul (4.8-10.8)
[2025-01-22 14:05] LABS: Alanine Aminotransferase 16.0 U/L (7-52); Albumin Globulin Ratio 1.0 (0.9-2); Albumin Level 3.6 gm/dl (3.4-5.0); Alkaline Phosphatase 44.0 U/L (34-104); Anion Gap 7.0 (3-11); Bilirubin,Total 0.5 mg/dl (0.2-1.0); Blood Urea Nitrogen 22.0 mg/dl (6-23); Calcium 8.7 mg/dl (8.6-10.3); Carbon Dioxide 23.0 mmol/L (21-32); Chloride 110.0 mmol/L (98-107); Creatinine Clr Calc Pharmacy 57.4 ml/min; Globulin 3.6 gm/dl (2.5-4.0); Glucose 158.0 mg/dl (70-99(Fasting)); Lipase 61.0 U/L (11-82); Potassium 4.2 mmol/L (3.5-5.1); Sodium 140.0 mmol/L (136-145); Total Protein 7.2 gm/dl (6.0-8.3)
--- NOTE | 2025-01-22 14:05 | Emergency Department Note ---
Impression & Plan Weakness, Cirrhosis of liver, Upper gastrointestinal bleeding, Renal insufficiency, CHF (congestive heart failure) ED Provider Note NAME: JAZLYN MELENDEZ AGE: 69 SEX: M : 1955 ARRIVES VIA: Walk-In INFORMANT: Patient ED PROVIDER(S): Russ Peralta MD CHIEF COMPLAINT: Weakness, dizziness, near syncope PLAN: Disposition: Admit MEDICAL DECISION MAKING: The patient is a 69 year old male with a PMH of atrial fibrillation, GI bleed, OH, CAD, recent cardioversion (October), Eloquis and clopidigrel usage, cirrhosis, and T2DM who presents with a 4-5 day history of lightheadedness and presyncope. He was also noted during this time to have melanotic stools, though he has also recently re-started his supplemental iron two weeks ago so it is unclear whether this is truly a bleed, as there has been no bright red blood noted. He is scheduled for Watchman device placement in February. He does not have chest pain and has what he describes as chronic shortness of breath that has not worsened. He has felt uneasy, lightheaded, and weak especially when moving throughout the house, but has not fallen. He has a history of GI bleed that was investigated and determined to be likely related to polyps and hemorrhoids as well as blood thinner usage. He follows with Dr. Andersen for pancytopenia and received iron infusions two months ago. Patient's daughter in law is present and the primary air analyst for the patient. She requests that all communication about his care is directed toward her. She also requests a discussion with care management upon admission regarding home health to aid in his care at home. On evaluation the patient no acute distress, afebrile with stable vital signs. He appears euvolemic to dry. Abdomen is nontender. Rectal exam demonstrates black stool in the setting of oral iron supplementation but is strongly Hemoccult positive. EKG demonstrates atrial paced rhythm with ST abnormalities which is new from most recent EKG but similar to prior EKGs in the past. CXR negative for acute cardiopulmonary process per my personal preliminary review/interpretation. WBC 2.5 K similar to prior. Platelets 103K, also similar to prior. H/H 8.9/27.8 with MCV of 97, decreased from hemoglobin of 12 in October of this year. INR is 1.2. Chemistry without metabolic acidosis. BUN is not elevated. Creatinine mildly increased from baseline at 1.5. Iron is low normal at 331. LFTs unremarkable. Posterior protein 7.7, within normal limits. UA without evidence of infection. Medical alcohol is undetectable. CT of the abdomen pelvis was completed and was negative for acute intra-abdominal process. Given the patient's worsening anemia in the setting of history of upper GI bleeding and Hemoccult positive stool and possible melena patient and daughter agree with plan for admission for further management. IV Protonix initiated. Case was discussed with MARYCARMEN Hanley admitting resident, with MARYCARMEN Zarate hospitalist who will evaluate the patient for admission. Further management per admitting team. Triage Nursing notes reviewed and agree them. Prior/external medical records reviewed Vital Signs: reviewed Differential diagnosis: Infection, dehydration, metabolic abnormality, hypo/hyperglycemia, electrolyte disturbance, anemia, hypoxia, cardiac sources, intracerebral event, toxicologic, neurologic, as well as other pathologies. ER treatment provided: See below. Diagnostics interpreted by me: ECG: Atrial paced rhythm, 61 bpm, no ectopy, ST abnormality, similar to previous EKGs. Cardiac Monitoring: An order for continuous cardiac monitoring was placed and demonstrated Atrial paced rhythm, 61 bpm, no ectopy Laboratory studies: See below Imaging studies: See below Consultation(s): MARYCARMEN Hanley admitting resident, with MARYCARMEN Zarate hospitalist HPI: Per MDM. ROS: See above HPI for pertinent positives & negatives. A total of 10 systems reviewed and were otherwise negative. VITALS:See Below PHYSICAL EXAMINATION: GENERAL: Awake, alert, fatigued-appearing, in no distress HENT: Normocephalic, atraumatic. Oropharynx with dry mucous membranes and otherwise unremarkable. EYES: Normal conjunctiva. Sclera non-icteric. NECK: Supple. No nuchal rigidity. FROM. No JVD. RESPIRATORY: Clear to auscultation. CARDIAC: Regular rate, normal rhythm. Extremities warm and well perfused. Pulses equal. ABDOMEN: Soft, non-distended. No tenderness to palpation. No rebound or guarding. No masses. RECTAL: Black stool, Hemoccult positive. MUSCULOSKELETAL: Chest examination reveals no tenderness. The back is symmetrical on inspection without obvious abnormality. There is no CVA tenderness to palpation. No joint edema. LOWER EXTREMITIES: Calves are equal size bilaterally and non-tender. No edema. No discoloration. NEURO: Normal sensorium. No sensory or motor deficits noted. SKIN: No rash or jaundice noted. Russ Peralta MD Past Med/Surg History Problem List (Updated 01/22/25 @ 21:45 by Russ Peralta MD) Pancytopenia Black stools Smoker Alcohol abuse CHF (congestive heart failure) (Acute) Renal insufficiency (Acute) Upper gastrointestinal bleeding (Acute) Cirrhosis of liver (Acute) Weakness (Acute) Renal cyst (Chronic) Prostate cancer screening (Chronic) Vertebral artery stenosis Osteopenia Multiple thyroid nodules Circadian rhythm sleep disorder, delayed sleep phase type SOB (shortness of breath) Fracture of thoracic spine Carotid stenosis, bilateral New onset of headaches after age 50 Right thyroid nodule BPH w urinary obs/LUTS (Chronic) CAD (coronary artery disease) Liver cirrhosis Ambulatory dysfunction Imbalance Anemia (Acute) Dizziness (Acute) Insomnia Ex-smoker Exertional shortness of breath COPD with emphysema Urinary frequency (Chronic) Medical History CAD (coronary artery disease) History of atrial fibrillation Presence of combination internal cardiac defibrillator (ICD) and pacemaker Monomorphic ventricular tachycardia Liver cirrhosis, alcoholic Stage 4 History of myocardial infarction [address] [facility]den[facility] Hypertension Hyperlipidemia Chronic obstructive pulmonary disease Diabetes mellitus, type 2 Hypogonadism male Multiple thyroid nodules Per records, patient unsure Carotid artery disease Idiopathic polyneuropathy Cardiomyopathy Combined ischemic/non-ischemic cardiomyopathy Surgical History Hx of cardiac cath Per cardio record: "prior catheterization which was done in October 2022 back in [place] that catheterization showed normal left main LAD with fully patent stents in the proximal and mid LAD diagonal vessel had a severe 70% ostial stenosis followed by patent stents with PAKO grade III flow. This was treated medically his circumflex is dominant calcified but with minor atheroma the RCA is nondominant small vessel with a proximal severe 80% stenosis which is also being treated medically. To that catheterization that he underwent his ICD placement when he got [facility]." Hx of right cataract extraction (09/20/24) History of liver biopsy H/O knee surgery ? side History of esophagogastroduodenoscopy (EGD) History of colonoscopy History of cholecystectomy History of tooth extraction Status post implantation of automatic cardioverter/defibrillator (AICD) 2022 implanted [place] at [place] checks defib for yearly checks ([employer]) Family History Other No family history of adverse response to anesthesia No pertinent family history Social History Smoking Status: Current every day smoker Tobacco Type: Cigarettes Age Started Using Tobacco: 19; Age Quit Using Tobacco: 62; packs per day: 1; Cigarettes Per Day: 5-7; Second Hand Exposure: No; Do You Dip or Chew Tobacco: No; Tobacco Cessation Education Requested by Patient: No Hx Alcohol Use: Yes Alcohol type: hard liquor Hx Substance Use: No Preferred Language: Mosotho Communication Ability: Effective Caustic Liquor Maker Required: No Beliefs That Will Affect Care: None Current Living Situation: Family Current Living Situation Comment: Son Other Information That Helps Us Care for You: No Feels Safe at Home: Yes Safety Concerns: Feels Safe At This Time Assistive Devices: None Allergies Allergies Allergy/AdvReac Type Severity Reaction Status Date / Time No Known Allergies Allergy Verified 01/13/25 13:01 Home Meds Home Medications Medication Instructions Recorded Confirmed metformin 500 mg tablet 500 mg PO BID 05/28/23 01/22/25 atorvastatin 20 mg tablet 10 mg PO QAM 09/07/24 01/22/25 carvedilol 12.5 mg tablet 0 mg PO QAM 09/07/24 01/22/25 clopidogrel 75 mg tablet (Plavix) 75 mg PO QAM 09/07/24 01/22/25 famotidine 20 mg tablet 0 mg PO HS 09/07/24 01/22/25 ferrous sulfate 325 mg (65 mg 0 mg PO QAM 09/07/24 01/22/25 iron) tablet fluticasone propionate 50 0 spray intranasal QAM 09/07/24 01/22/25 mcg/actuation nasal spray,suspension furosemide 20 mg tablet (Lasix) 0 mg PO QAM 09/07/24 01/22/25 meloxicam 15 mg tablet 0 mg PO QAM 09/07/24 01/22/25 multivitamin 1 tab PO QAM 09/07/24 01/22/25 sitagliptin phosphate 50 mg tablet 0 mg PO QAM 09/07/24 01/22/25 (Januvia) amiodarone 200 mg tablet 200 mg PO UD 11/02/24 01/22/25 albuterol sulfate 90 mcg/actuation 2 inh inhalation QID PRN sob 12/29/24 01/22/25 aerosol inhaler (Ventolin HFA) empagliflozin 10 mg tablet 10 mg PO DAILY 01/22/25 01/22/25 (Jardiance) metoprolol succinate 100 mg 100 mg PO DAILY 01/22/25 01/22/25 tablet,extended release 24 hr pantoprazole 40 mg tablet,delayed 40 mg PO BID 01/22/25 01/22/25 release Previous Rx's Medication Instructions Recorded apixaban 5 mg tablet (Eliquis) 5 mg PO BID #60 tabs 10/03/24 umeclidinium 62.5 mcg-vilanterol 1 inh inhalation DAILY #60 ea 12/29/24 25 mcg/actuation powdr for inhalation (Anoro Ellipta) mirabegron 50 mg tablet,extended 50 mg PO QAM #90 tabs 01/13/25 release 24 hr (Myrbetriq) tadalafil 5 mg tablet 5 mg PO QAM #90 tabs 01/13/25 tamsulosin 0.4 mg capsule 0.4 mg PO Q12H #180 caps 01/13/25 Results & Data (ED) Vital Signs Vital Signs - 24 hr 01/22/25 13:15 01/22/25 13:26 01/22/25 13:30 Temperature 36.8 C Temperature Source Temporal Artery Scan Pulse Rate 65 66 60 Pulse Rate [Apical] Pulse Rhythm Regular Pulse Rhythm [Apical] Pulse Strength [Apical] Respiratory Rate 19 14 Respiratory Effort / Characteristics Non-Labored Spontaneous Respiratory Depth Normal Blood Pressure 92/59 L Blood Pressure [Right Arm] Blood Pressure Mean 70 Blood Pressure Mean [Right Arm] Blood Pressure Position [Right Arm] Pulse Oximetry 95 96 Oxygen Delivery Method Room Air Room Air Sepsis Recent Fever Within 48 Hours No Sepsis New/Unexplained Change in Mental Status No Sepsis Action Taken by Nursing No Action Required 01/22/25 15:07 01/22/25 15:19 Temperature Temperature Source Pulse Rate Pulse Rate [Apical] 60 Pulse Rhythm Pulse Rhythm [Apical] Regular Pulse Strength [Apical] Normal Respiratory Rate 15 Respiratory Effort / Characteristics Non-Labored Spontaneous Respiratory Depth Normal Blood Pressure Blood Pressure [Right Arm] 97/57 L 112/65 Blood Pressure Mean Blood Pressure Mean [Right Arm] 70 80 Blood Pressure Position [Right Arm] Lying Pulse Oximetry 96 Oxygen Delivery Method Room Air Sepsis Recent Fever Within 48 Hours Sepsis New/Unexplained Change in Mental Status Sepsis Action Taken by Nursing Laboratory Data Attestation: I reviewed the patient's lab results. 01/22/25 20:29 01/22/25 13:32 Lab Results 01/22/25 01/22/25 01/22/25 Range/Units 13:32 14:01 14:07 WBC 2.55 L (4.8-10.8) K/ul RBC 2.85 L (4.70-6.10) M/uL Hgb 8.9 L (14.0-18.0) g/dl POC Hgb 8.5 L (14.0-18.0) g/dl Hct 27.8 L (42.0-52.0) % POC Hct 25 L (42-52) % MCV 97.5 (80.0-100.0) fL MCH 31.2 (25.0-34.0) pg MCHC 32.0 (32.0-36.0) g/dL RDW Std Deviation 53.7 H (36.4-46.3) fL RDW Coeff of Facundo 15.1 H (11.5-14.5) % Plt Count 103 L (130-400) K/uL MPV 10.3 (9.4-12.4) fL Immature Gran % (Auto) 0.8 % Neut % (Auto) 61.2 % Lymph % (Auto) 24.7 % Briscoe % (Auto) 8.6 % Eos % (Auto) 3.5 % Baso % (Auto) 1.2 % Neut # (Auto) 1.56 (1.40-6.50) K/uL Lymph # (Auto) 0.63 L (1.20-3.40) K/uL Briscoe # (Auto) 0.22 (0.11-0.59) K/uL Eos # (Auto) 0.09 (0.00-0.50) K/uL Baso # (Auto) 0.03 (0.00-0.20) K/uL Immature Gran # (Auto) 0.02 (0.01-0.20) K/uL PT 12.1 H (9.0-12.0) Seconds INR 1.2 H (0.9-1.1) POC Sodium 141 (135-144) mmol/L Sodium 140 (136-145) mmol/L POC Potassium 4.2 (3.3-5.0) mmol/L Potassium 4.2 (3.5-5.1) mmol/L POC Chloride 110 (101-112) mmol/L Chloride 110 H (98-107) mmol/L Carbon Dioxide 23 (21-32) mmol/L POC Total CO2 21 L (24-31) mmol/L Anion Gap 7 (3-11) POC Anion Gap 16.0 (16-25) mmol/L POC BUN 20 H (7-18) mg/dl BUN 22 (6-23) mg/dl Creatinine 1.49 H (0.6-1.4) mg/dl POC Creatinine 1.5 H (0.6-1.3) mg/dl Est Cr Clr Drug Dosing 57.4 ml/min eGFR 50.49 BUN/Creatinine Ratio 14.8 (10-20) Glucose 158 H (70-99(Fasting)) mg/dl POC Glucose (other) 165 H (70-99) mg/dl Calcium 8.7 (8.6-10.3) mg/dl POC Ioniz Calcium Sivakumar 1.19 (1.12-1.32) mmol/l Iron 331 H (35-175) mcg/dl Total Bilirubin 0.5 (0.2-1.0) mg/dl Direct Bilirubin 0.1 (0-0.2) mg/dl AST 24 (13-39) U/L ALT 16 (7-52) U/L Alkaline Phosphatase 44 (34-104) U/L Troponin I High Sens 7.7 (0-20) pg/ml Total Protein 7.2 (6.0-8.3) gm/dl Albumin 3.6 (3.4-5.0) gm/dl Globulin 3.6 (2.5-4.0) gm/dl Albumin/Globulin Ratio 1.0 (0.9-2) Lipase 61 (11-82) U/L Urine Color Urine Appearance (Clear) Urine pH (4.5-7.5) Ur Specific [place] (1.000-1.030) Urine Protein (Negative) Urine Glucose (UA) (Negative) Urine Ketones (Negative) Urine Blood (Negative) Urine Nitrite (Negative) Urine Bilirubin (Negative) Urine Urobilinogen (Negative) Ur Leukocyte Esterase (Negative) Urine Comment Ethyl Alcohol mg/dL < 10.0 (<10.0) mg/dl Blood Type A Positive Antibody Screen NEGATIVE 01/22/25 Range/Units 14:27 WBC (4.8-10.8) K/ul RBC (4.70-6.10) M/uL Hgb (14.0-18.0) g/dl POC Hgb (14.0-18.0) g/dl Hct (42.0-52.0) % POC Hct (42-52) % MCV (80.0-100.0) fL MCH (25.0-34.0) pg MCHC (32.0-36.0) g/dL RDW Std Deviation (36.4-46.3) fL RDW Coeff of Facundo (11.5-14.5) % Plt Count (130-400) K/uL MPV (9.4-12.4) fL Immature Gran % (Auto) % Neut % (Auto) % Lymph % (Auto) % Briscoe % (Auto) % Eos % (Auto) % Baso % (Auto) % Neut # (Auto) (1.40-6.50) K/uL Lymph # (Auto) (1.20-3.40) K/uL [place]iscoe # (Auto) (0.11-0.59) K/uL Eos # (Auto) (0.00-0.50) K/uL Baso # (Auto) (0.00-0.20) K/uL Immature Gran # (Auto) (0.01-0.20) K/uL PT (9.0-12.0) Seconds INR (0.9-1.1) POC Sodium (135-144) mmol/L Sodium (136-145) mmol/L POC Potassium (3.3-5.0) mmol/L Potassium (3.5-5.1) mmol/L POC Chloride (101-112) mmol/L Chloride (98-107) mmol/L Carbon Dioxide (21-32) mmol/L POC Total CO2 (24-31) mmol/L Anion Gap (3-11) POC Anion Gap (16-25) mmol/L POC BUN (7-18) mg/dl BUN (6-23) mg/dl Creatinine (0.6-1.4) mg/dl POC Creatinine (0.6-1.3) mg/dl Est Cr Clr Drug Dosing ml/min eGFR BUN/Creatinine Ratio (10-20) Glucose (70-99(Fasting)) mg/dl POC Glucose (other) (70-99) mg/dl Calcium (8.6-10.3) mg/dl POC Ioniz Calcium Sivakumar (1.12-1.32) mmol/l Iron (35-175) mcg/dl Total Bilirubin (0.2-1.0) mg/dl Direct Bilirubin (0-0.2) mg/dl AST (13-39) U/L ALT (7-52) U/L Alkaline Phosphatase (34-104) U/L Troponin I High Sens (0-20) pg/ml Total Protein (6.0-8.3) gm/dl Albumin (3.4-5.0) gm/dl Globulin (2.5-4.0) gm/dl Albumin/Globulin Ratio (0.9-2) Lipase (11-82) U/L Urine Color Yellow Urine Appearance Clear (Clear) Urine pH 5.5 (4.5-7.5) Ur Specific [place] 1.025 (1.000-1.030) Urine Protein Negative (Negative) Urine Glucose (UA) 3+ H (Negative) Urine Ketones Negative (Negative) Urine Blood Negative (Negative) Urine Nitrite Negative (Negative) Urine Bilirubin Negative (Negative) Urine Urobilinogen Negative (Negative) Ur Leukocyte Esterase Negative (Negative) Urine Comment Ethyl Alcohol mg/dL (<10.0) mg/dl Blood Type Antibody Screen Administered Medications Amiodarone HCl (Amiodarone 200 Mg Tab) 200 mg PO BID [facility] Stop: 02/21/25 20:59 Last Admin: 01/22/25 20:08 Dose: 200 mg Documented By: BMS Lactated Ringer's (Lr) 1,000 mls @ 110 mls/hr IV .Q9H6M AIDA Stop: 01/25/25 16:44 Last Admin: 01/22/25 17:13 Dose: 110 mls/hr Documented By: mls Pantoprazole Sodium (Protonix) 40 mg in 10 mls @ 5 mls/min IV BID AIDA Stop: 02/21/25 20:59 Last Admin: 01/22/25 20:13 Dose: 5 mls/min Documented By: KRISH Insulin Aspart (Insulin Aspart Per Unit Charge) 0 units SC Q6 AIDA Stop: 02/21/25 18:29 Last Admin: 01/22/25 20:46 Dose: Not Given Documented By: KRISH Co-signed By: ALEXA Moxifloxacin HCl (Moxifloxacin Hcl 0.5% Op Soln 3 Ml Btl) 1 drops OP TID AIDA Stop: 02/21/25 20:59 Last Admin: 01/22/25 20:11 Dose: Not Given Documented By: BMS Tamsulosin HCl (Tamsulosin Hcl 0.4 Mg Cap) 0.4 mg PO Q12H AIDA Stop: 02/21/25 20:59 Last Admin: 01/22/25 20:08 Dose: 0.4 mg Documented By: KRISH Discontinued Medications Famotidine (Famotidine 20 Mg Tab) 20 mg PO NOW ONE Stop: 01/22/25 18:17 Last Admin: 01/22/25 20:07 Dose: 20 mg Documented By: KRISH Pantoprazole Sodium (Pantoprazole 40 Mg Tab) 40 mg PO NOW STA Stop: 01/22/25 14:38 Last Admin: 01/22/25 15:08 Dose: 40 mg [place]ed [place] [facility] [place] Radiologist's Impression: Chest X-Ray 01/22/25 13:26 Chest radiograph, one view History: Rectal bleeding Comparison: 10/03/2024 Findings: Single AP view of the chest performed. Mild streaky left basilar atelectasis similar prior. Left chest wall dual-lead AICD. No focal consolidation or pleural effusion. No pneumothorax. The cardiomediastinal silhouette is within normal limits. Normal pulmonary vascularity. No evidence for lymphadenopathy. No visualized bony or soft tissue abnormality. Old healed right rib fractures. Impression: No acute finding Electronically signed by Christiano Rizo 01-22-2025 2:34 PM Abdomen/Pelvis CT 01/22/25 14:32 EXAMINATION: CT of the abdomen and pelvis performed without contrast TECHNIQUE: Helical CT images from the lung bases through the symphysis pubis were obtained without contrast. Coronal and sagittal reformatted images were generated at a workstation for further assessment. Dose reduction techniques were achieved by using automatic exposure control and/or adjustment of mA and/or kV according to patient size and/or use of iterative reconstruction technique. COMPARISON: 05/01/2024 HISTORY: Abdominal pain FINDINGS: Lower chest: No consolidation. No pleural effusion or pneumothorax. Liver: No suspicious liver lesions. Cirrhotic morphology. Gallbladder: Cholecystectomy Spleen: Splenomegaly due to portal hypertension. Pancreas: No suspicious pancreatic lesions. The pancreatic duct is not dilated. Adrenal glands: No adrenal nodules. Kidneys: No hydronephrosis or obstructing renal stones. Bladder / Pelvic organs: Unremarkable. Bowel: No bowel obstruction. No abnormal bowel wall thickening. The appendix is unremarkable. Lymph nodes: No retroperitoneal, mesenteric, or pelvic lymphadenopathy. Peritoneum / Retroperitoneum: No free fluid or air within the abdomen. Vessels: No infrarenal aortic aneurysm. Moderate aortoiliac calcification. Bones and soft tissues: No suspicious lesion in the bones. Fat-containing inguinal hernias again seen bilaterally. On the right, the hernia is increased in size, and again contains loops of nondilated small bowel, which is also increased from prior. IMPRESSION: No acute process. Right inguinal hernia containing loops of nondilated small bowel, is increased from prior. Cirrhosis. Electronically signed by Christiano Rizo 01-22-2025 3:40 PM Discharge Plan Visit Data Chief Complaint: Rectal Bleed Stated Complaint: DIZZINESS, PAIN IN SHOULDERS AND KNEES ED Provider: Russ Peralta Discharge Problem: Weakness, Cirrhosis of liver, Upper gastrointestinal bleeding, Renal insufficiency, CHF (congestive heart failure) Patient Disposition: Admitted As Inpatient Condition: Serious Discharge Instructions Interventions: ED Discharge Assessment Last Done: 01/22/25 17:46 Discharge Problem: Cirrhosis of liver Qualifiers: Hepatic cirrhosis type: unspecified hepatic cirrhosis Ascites presence: u nspecified Qualified Code(s): K74.60 - Unspecified cirrhosis of liver CHF (congestive heart failure) Qualifiers: Heart failure type: unspecified Heart failure chronicity: unspecified Qualified Code(s): I50.9 - Heart failure, unspecified
[2025-01-22 14:13] LABS: INR 1.2 (0.9-1.1); Prothrombin Time 12.1 Seconds (9.0-12.0)
[2025-01-22 14:31] LABS: Iron 331.0 mcg/dl (35-175)
--- NOTE | 2025-01-22 14:34 | XRay Report ---
Chest radiograph, one view History: Rectal bleeding Comparison: 10/03/2024 Findings: Single AP view of the chest performed. Mild streaky left basilar atelectasis similar prior. Left chest wall dual-lead AICD. No focal consolidation or pleural effusion. No pneumothorax. The cardiomediastinal silhouette is within normal limits. Normal pulmonary vascularity. No evidence for lymphadenopathy. No visualized bony or soft tissue abnormality. Old healed right rib fractures. Impression: No acute finding Electronically signed by Christiano Rizo 01-22-2025 2:34 PM
[2025-01-22 14:49] LABS: Appearance Urine Clear (Clear); Glucose Urine UA 3+ (Negative)
--- NOTE | 2025-01-22 15:40 | CT Scan Report ---
EXAMINATION: CT of the abdomen and pelvis performed without contrast TECHNIQUE: Helical CT images from the lung bases through the symphysis pubis were obtained without contrast. Coronal and sagittal reformatted images were generated at a workstation for further assessment. Dose reduction techniques were achieved by using automatic exposure control and/or adjustment of mA and/or kV according to patient size and/or use of iterative reconstruction technique. COMPARISON: 05/01/2024 HISTORY: Abdominal pain FINDINGS: Lower chest: No consolidation. No pleural effusion or pneumothorax. Liver: No suspicious liver lesions. Cirrhotic morphology. Gallbladder: Cholecystectomy Spleen: Splenomegaly due to portal hypertension. Pancreas: No suspicious pancreatic lesions. The pancreatic duct is not dilated. Adrenal glands: No adrenal nodules. Kidneys: No hydronephrosis or obstructing renal stones. Bladder / Pelvic organs: Unremarkable. Bowel: No bowel obstruction. No abnormal bowel wall thickening. The appendix is unremarkable. Lymph nodes: No retroperitoneal, mesenteric, or pelvic lymphadenopathy. Peritoneum / Retroperitoneum: No free fluid or air within the abdomen. Vessels: No infrarenal aortic aneurysm. Moderate aortoiliac calcification. Bones and soft tissues: No suspicious lesion in the bones. Fat-containing inguinal hernias again seen bilaterally. On the right, the hernia is increased in size, and again contains loops of nondilated small bowel, which is also increased from prior. IMPRESSION: No acute process. Right inguinal hernia containing loops of nondilated small bowel, is increased from prior. Cirrhosis. Electronically signed by Christiano Rizo 01-22-2025 3:40 PM
[2025-01-22] MEDS ORDERED: ONDANSETRON INJ 2 MG/ML 2 ML VIAL IV PRN (16:35)
[2025-01-22] MEDS ORDERED: POLYETHYLENE (MIRALAX) 17 GM PACK PO PRN (16:35)
--- NOTE | 2025-01-22 16:35 | History & Physical Report ---
Date of Service January 22, 2025 Assessment & Plan (1) Black stools: (2) Upper gastrointestinal bleeding: (3) Anemia: (4) Cirrhosis of liver: (5) Imbalance: (6) Dizziness: (7) Alcohol abuse: (8) Smoker: (9) Pancytopenia: Plan Patient is a pleasant 69 year old male with history of alcohol abuse, tobacco use (currently smokes 5-7 cigarettes a day but has 60pky history), prior upper GI bleed, cirrhosis, prior DE with current pacemaker for paroxysmal afib, and past blood transfusion, presented into the ED with dizziness when first standing up, pain in his feet and shoulders B/L, and black stools. Admitting for suspected upper GI bleed, pt requires inpatient admission for medical stabilization and further workup into suspected bleed. Black Stools/Cirrhosis/Upper GI Bleed/Dizziness/Alcohol Abuse -Has been having black stool for 5-8 months. Last BM was yesterday and was black. -Drinks 3-4 "packs" of whiskey a day. His last drink was yesterday. Began EtOH withdrawal order set. Have Lorazepam to be used if patient experiences alcohol withdrawal. -Current Hgb is 8.9. Previous Hgb in 10/28 was 12.3. -Abd/pelvis CT scan showed splenomegaly most likely from portal hypertension and a cirrhotic liver. -Ordered IV Protonix BID. Also gave Pepcid 20mg once at 01/22. -GI consult for EGD. -Diet NPO -Discontinued Eliquis due to possible current bleeding. -Type and cross 2 bags of blood for possible blood transfusion. If Hgb is <7.0 will transfuse. -LR 110 ml/hr -Ordered thiamine and folate -H&H for 2100 to monitor potential blood loss. -Trend CBC w/o diff and BMP in the AM -Orthostatic dizziness and loss of balance could be from the anemia. BAUDILIO -Creatine is 1.5 (01/21). Baseline is ~1.10. -Continue IVF fluids. Elevated Iron -Patient is currently taking iron supplementation. -Current iron level is 331. Ordered FE MIRZA studies along with ferritin. -Discontinued iron supplementation until have more information. -Wait for further information from iron studies. History of Present Illness Chief Complaint: Dizziness, Pain in feet and shoulders B/L, and black stools. Primary Care Provider: Dwaine Guzman DO Patient is a pleasant 69 year old male who presented into the ER with dizziness, feet and shoulder pain B/L, and black stools. Dizziness/Foot&Shoulder Pain -States that the dizziness, foot and shoulder pain began 4-5 days ago that "came out of the blue" and has gotten worse. He states that when he first gets up out of a chair or sitting position he begins to feel dizzy. He also stated that he also has lost his sense of balance. He also noted the pain from his feet is from the knee down. Black Stools -Patient also reported that he has been having black stools for 5-8 months. His last bowel movement was yesterday and it was also black. The findings are confounded by the patient also taking iron supplementation. On his medication list he has meloxicam, but patient is not sure if he is still taking the medication. Reports that he smokes 5-7 cigarettes a day and drinks 3-4 packs of whiskey a day. His last drink was last night. -He also noted that he was given a blood transfusion 8 months ago for a low hemoglobin. Discussed with patient and he agreed to a blood transfusion. -Admitted to shortness of breath when he first stands up. At rest patient does not feel dizzy. -Denies fever, N/V/D, abdominal pain, swelling in his legs, abdominal distension, and hemoptysis. -Denied history of DVT and stroke. However, does have history of DE and has a pacemaker. Allergies Allergy/AdvReac Type Severity Reaction Status Date / Time No Known Allergies Allergy Verified 01/13/25 13:01 Home Medications Medication Instructions Recorded Confirmed Type metformin 500 mg tablet 500 mg PO BID 05/28/23 01/22/25 History atorvastatin 20 mg tablet 10 mg PO QAM 09/07/24 01/22/25 History carvedilol 12.5 mg tablet 0 mg PO QAM 09/07/24 01/22/25 History clopidogrel 75 mg tablet (Plavix) 75 mg PO QAM 09/07/24 01/22/25 History famotidine 20 mg tablet 0 mg PO HS 09/07/24 01/22/25 History ferrous sulfate 325 mg (65 mg 0 mg PO QAM 09/07/24 01/22/25 History iron) tablet fluticasone propionate 50 0 spray intranasal QA 09/07/24 01/22/25 History mcg/actuation nasal spray,suspension furosemide 20 mg tablet (Lasix) 0 mg PO QAM 09/07/24 01/22/25 History meloxicam 15 mg tablet 0 mg PO QAM 09/07/24 01/22/25 History multivitamin 1 tab PO QAM 09/07/24 01/22/25 History sitagliptin phosphate 50 mg tablet 0 mg PO QAM 09/07/24 01/22/25 History (Januvia) apixaban 5 mg tablet (Eliquis) 5 mg PO BID #60 tabs 10/03/24 01/22/25 Rx amiodarone 200 mg tablet 200 mg PO UD 11/02/24 01/22/25 History albuterol sulfate 90 mcg/actuation 2 inh inhalation QID PRN sob 12/29/24 01/22/25 History aerosol inhaler (Ventolin HFA) umeclidinium 62.5 mcg-vilanterol 1 inh inhalation DAILY #60 ea 12/29/24 01/22/25 Rx 25 mcg/actuation powdr for inhalation (Anoro Ellipta) mirabegron 50 mg tablet,extended 50 mg PO QAM #90 tabs 01/13/25 01/22/25 Rx release 24 hr (Myrbetriq) tadalafil 5 mg tablet 5 mg PO QAM #90 tabs 01/13/25 01/22/25 Rx tamsulosin 0.4 mg capsule 0.4 mg PO Q12H #180 caps 01/13/25 01/22/25 Rx empagliflozin 10 mg tablet 10 mg PO DAILY 01/22/25 01/22/25 History (Jardiance) metoprolol succinate 100 mg 100 mg PO DAILY 01/22/25 01/22/25 History tablet,extended release 24 hr pantoprazole 40 mg tablet,delayed 40 mg PO BID 01/22/25 01/22/25 History release Past Med/Surg History Problem List (Updated 01/22/25 @ 17:40 by Leobardo Monroy DO) Pancytopenia Black stools Smoker Alcohol abuse CHF (congestive heart failure) (Acute) Renal insufficiency (Acute) Upper gastrointestinal bleeding (Acute) Cirrhosis of liver (Acute) Weakness (Acute) Renal cyst (Chronic) Prostate cancer screening (Chronic) Vertebral artery stenosis Osteopenia Multiple thyroid nodules Circadian rhythm sleep disorder, delayed sleep phase type SOB (shortness of breath) Fracture of thoracic spine Carotid stenosis, bilateral New onset of headaches after age 50 Right thyroid nodule BPH w urinary obs/LUTS (Chronic) CAD (coronary artery disease) Liver cirrhosis Ambulatory dysfunction Imbalance Anemia (Acute) Dizziness (Acute) Insomnia Ex-smoker Exertional shortness of breath COPD with emphysema Urinary frequency (Chronic) Medical History CAD (coronary artery disease) History of atrial fibrillation Presence of combination internal cardiac defibrillator (ICD) and pacemaker Monomorphic ventricular tachycardia Liver cirrhosis, alcoholic Stage 4 History of myocardial infarction [address] [place]/[facility] Hypertension Hyperlipidemia Chronic obstructive pulmonary disease Diabetes mellitus, type 2 Hypogonadism male Multiple thyroid nodules Per records, patient unsure Carotid artery disease Idiopathic polyneuropathy Cardiomyopathy Combined ischemic/non-ischemic cardiomyopathy Surgical History Hx of cardiac cath Per cardio record: "prior catheterization which was done in October 2022 back in [facility] that catheterization showed normal left main LAD with fully patent stents in the proximal and mid LAD diagonal vessel had a severe 70% ostial stenosis followed by patent stents with PAKO grade III flow. This was treated medically his circumflex is dominant calcified but with minor atheroma the RCA is nondominant small vessel with a proximal severe 80% stenosis which is also being treated medically. To that catheterization that he underwent his ICD placement when he got to the [facility]." Hx of right cataract extraction (09/20/24) History of liver biopsy H/O knee surgery ? side History of esophagogastroduodenoscopy (EGD) History of colonoscopy History of cholecystectomy History of tooth extraction Status post implantation of automatic cardioverter/defibrillator (AICD) 2022 implanted [place] at [place] checks defib for yearly checks ([employer]) Family History Other No family history of adverse response to anesthesia No pertinent family history Social History Smoking Status: Current every day smoker Tobacco Type: Cigarettes Age Started Using Tobacco: 19; Age Quit Using Tobacco: 62; packs per day: 1; Cigarettes Per Day: 5-7; Second Hand Exposure: No; Do You Dip or Chew Tobacco: No; Tobacco Cessation Education Requested by Patient: No Hx Alcohol Use: Yes Alcohol type: hard liquor Hx Substance Use: No Preferred Language: [place] Communication Ability: Effective Instrument And Control Technician Required: No Beliefs That Will Affect Care: None Current Living Situation: Family Current Living Situation Comment: Son Other Information That Helps Us Care for You: No Feels Safe at Home: Yes Safety Concerns: Feels Safe At This Time Assistive Devices: None Review of Systems Review of Systems: as per subjective HPI Physical Exam Constitutional: WD/WN, vitals as above Eyes: + anicteric sclerae and EOM intact bilat erally Neck: normal visual inspection Respiratory: normal respiratory effort, lungs clear to auscultation Cardiovascular: Rate/Rhythm: regular rate and regular rhythm Heart Sounds: normal S1 and normal S2 Extremities: no calf tenderness and no edema Gastrointestinal (Abdomen): Percussion/Palpation: + abdomen tender (LLQ >RLQ) and abdomen soft Skin: no rashes, warm and dry Neurologic: STR in dorsiflexion and plantarflexion Psychiatric: Orientation: alert and oriented x 3 Eye Contact: good eye contact Speech: normal rate/rhythm/volume of speech Results & Data Results & Data Vital Signs (Past 12 Hours) Vital Signs Temp Pulse Pulse Resp BP BP Pulse Ox 01/22/25 15:19 112/65 01/22/25 15:07 60 15 97/57 L 96 01/22/25 13:30 60 14 96 01/22/25 13:26 66 01/22/25 13:15 36.8 C 65 19 92/59 L 95 O2 Del Method 01/22/25 15:19 01/22/25 15:07 Room Air 01/22/25 13:30 Room Air 01/22/25 13:26 01/22/25 13:15 Room Air Laboratory Results Lab Results 01/22/25 01/22/25 01/22/25 Range/Units 13:32 14:01 14:07 WBC 2.55 L (4.8-10.8) K/ul RBC 2.85 L (4.70-6.10) M/uL Hgb 8.9 L (14.0-18.0) g/dl POC Hgb 8.5 L (14.0-18.0) g/dl Hct 27.8 L (42.0-52.0) % POC Hct 25 L (42-52) % MCV 97.5 (80.0-100.0) fL MCH 31.2 (25.0-34.0) pg MCHC 32.0 (32.0-36.0) g/dL RDW Std Deviation 53.7 H (36.4-46.3) fL RDW Coeff of Facundo 15.1 H (11.5-14.5) % Plt Count 103 L (130-400) K/uL MPV 10.3 (9.4-12.4) fL Immature Gran % (Auto) 0.8 % Neut % (Auto) 61.2 % Lymph % (Auto) 24.7 % Bullock % (Auto) 8.6 % Eos % (Auto) 3.5 % Baso % (Auto) 1.2 % Neut # (Auto) 1.56 (1.40-6.50) K/uL Lymph # (Auto) 0.63 L (1.20-3.40) K/uL Bullock # (Auto) 0.22 (0.11-0.59) K/uL Eos # (Auto) 0.09 (0.00-0.50) K/uL Baso # (Auto) 0.03 (0.00-0.20) K/uL Immature Gran # (Auto) 0.02 (0.01-0.20) K/uL PT 12.1 H (9.0-12.0) Seconds INR 1.2 H (0.9-1.1) POC Sodium 141 (135-144) mmol/L Sodium 140 (136-145) mmol/L POC Potassium 4.2 (3.3-5.0) mmol/L Potassium 4.2 (3.5-5.1) mmol/L POC Chloride 110 (101-112) mmol/L Chloride 110 H (98-107) mmol/L Carbon Dioxide 23 (21-32) mmol/L POC Total CO2 21 L (24-31) mmol/L Anion Gap 7 (3-11) POC Anion Gap 16.0 (16-25) mmol/L POC BUN 20 H (7-18) mg/dl BUN 22 (6-23) mg/dl Creatinine 1.49 H (0.6-1.4) mg/dl POC Creatinine 1.5 H (0.6-1.3) mg/dl Est Cr Clr Drug Dosing 57.4 ml/min eGFR 50.49 BUN/Creatinine Ratio 14.8 (10-20) Glucose 158 H (70-99(Fasting)) mg/dl POC Glucose (other) 165 H (70-99) mg/dl Calcium 8.7 (8.6-10.3) mg/dl POC Ioniz Calcium Sivakumar 1.19 (1.12-1.32) mmol/l Iron 331 H (35-175) mcg/dl Total Bilirubin 0.5 (0.2-1.0) mg/dl Direct Bilirubin 0.1 (0-0.2) mg/dl AST 24 (13-39) U/L ALT 16 (7-52) U/L Alkaline Phosphatase 44 (34-104) U/L Troponin I High Sens 7.7 (0-20) pg/ml Total Protein 7.2 (6.0-8.3) gm/dl Albumin 3.6 (3.4-5.0) gm/dl Globulin 3.6 (2.5-4.0) gm/dl Albumin/Globulin Ratio 1.0 (0.9-2) Lipase 61 (11-82) U/L Urine Color Urine Appearance (Clear) Urine pH (4.5-7.5) Ur Specific [place] (1.000-1.030) Urine Protein (Negative) Urine Glucose (UA) (Negative) Urine Ketones (Negative) Urine Blood (Negative) Urine Nitrite (Negative) Urine Bilirubin (Negative) Urine Urobilinogen (Negative) Ur Leukocyte Esterase (Negative) Urine Comment Ethyl Alcohol mg/dL < 10.0 (<10.0) mg/dl Blood Type A Positive Antibody Screen NEGATIVE 01/22/25 Range/Units 14:27 WBC (4.8-10.8) K/ul RBC (4.70-6.10) M/uL Hgb (14.0-18.0) g/dl POC Hgb (14.0-18.0) g/dl Hct (42.0-52.0) % POC Hct (42-52) % MCV (80.0-100.0) fL MCH (25.0-34.0) pg MCHC (32.0-36.0) g/dL RDW Std Deviation (36.4-46.3) fL RDW Coeff of Facundo (11.5-14.5) % Plt Count (130-400) K/uL MPV (9.4-12.4) fL Immature Gran % (Auto) % Neut % (Auto) % Lymph % (Auto) % Bullock % (Auto) % Eos % (Auto) % Baso % (Auto) % Neut # (Auto) (1.40-6.50) K/uL Lymph # (Auto) (1.20-3.40) K/uL Bullock # (Auto) (0.11-0.59) K/uL Eos # (Auto) (0.00-0.50) K/uL Baso # (Auto) (0.00-0.20) K/uL Immature Gran # (Auto) (0.01-0.20) K/uL PT (9.0-12.0) Seconds INR (0.9-1.1) POC Sodium (135-144) mmol/L Sodium (136-145) mmol/L POC Potassium (3.3-5.0) mmol/L Potassium (3.5-5.1) mmol/L POC Chloride (101-112) mmol/L Chloride (98-107) mmol/L Carbon Dioxide (21-32) mmol/L POC Total CO2 (24-31) mmol/L Anion Gap (3-11) POC Anion Gap (16-25) mmol/L POC BUN (7-18) mg/dl BUN (6-23) mg/dl Creatinine (0.6-1.4) mg/dl POC Creatinine (0.6-1.3) mg/dl Est Cr Clr Drug Dosing ml/min eGFR BUN/Creatinine Ratio (10-20) Glucose (70-99(Fasting)) mg/dl POC Glucose (other) (70-99) mg/dl Calcium (8.6-10.3) mg/dl POC Ioniz Calcium Sivakumar (1.12-1.32) mmol/l Iron (35-175) mcg/dl Total Bilirubin (0.2-1.0) mg/dl Direct Bilirubin (0-0.2) mg/dl AST (13-39) U/L ALT (7-52) U/L Alkaline Phosphatase (34-104) U/L Troponin I High Sens (0-20) pg/ml Total Protein (6.0-8.3) gm/dl Albumin (3.4-5.0) gm/dl Globulin (2.5-4.0) gm/dl Albumin/Globulin Ratio (0.9-2) Lipase (11-82) U/L Urine Color Yellow Urine Appearance Clear (Clear) Urine pH 5.5 (4.5-7.5) Ur Specific [place] 1.025 (1.000-1.030) Urine Protein Negative (Negative) Urine Glucose (UA) 3+ H (Negative) Urine Ketones Negative (Negative) Urine Blood Negative (Negative) Urine Nitrite Negative (Negative) Urine Bilirubin Negative (Negative) Urine Urobilinogen Negative (Negative) Ur Leukocyte Esterase Negative (Negative) Urine Comment Ethyl Alcohol mg/dL (<10.0) mg/dl Blood Type Antibody Screen Diagnostic Findings Chest X-Ray 01/22/25 13:26 Chest radiograph, one view History: Rectal bleeding Comparison: 10/03/2024 Findings: Single AP view of the chest performed. Mild streaky left basilar atelectasis similar prior. Left chest wall dual-lead AICD. No focal consolidation or pleural effusion. No pneumothorax. The cardiomediastinal silhouette is within normal limits. Normal pulmonary vascularity. No evidence for lymphadenopathy. No visualized bony or soft tissue abnormality. Old healed right rib fractures. Impression: No acute finding Electronically signed by Christiano Rizo 01-22-2025 2:34 PM Abdomen/Pelvis CT 01/22/25 14:32 EXAMINATION: CT of the abdomen and pelvis performed without contrast TECHNIQUE: Helical CT images from the lung bases through the symphysis pubis were obtained without contrast. Coronal and sagittal reformatted images were generated at a workstation for further assessment. Dose reduction techniques were achieved by using automatic exposure control and/or adjustment of mA and/or kV according to patient size and/or use of iterative reconstruction technique. COMPARISON: 05/01/2024 HISTORY: Abdominal pain FINDINGS: Lower chest: No consolidation. No pleural effusion or pneumothorax. Liver: No suspicious liver lesions. Cirrhotic morphology. Gallbladder: Cholecystectomy Spleen: Splenomegaly due to portal hypertension. Pancreas: No suspicious pancreatic lesions. The pancreatic duct is not dilated. Adrenal glands: No adrenal nodules. Kidneys: No hydronephrosis or obstructing renal stones. Bladder / Pelvic organs: Unremarkable. Bowel: No bowel obstruction. No abnormal bowel wall thickening. The appendix is unremarkable. Lymph nodes: No retroperitoneal, mesenteric, or pelvic lymphadenopathy. Peritoneum / Retroperitoneum: No free fluid or air within the abdomen. Vessels: No infrarenal aortic aneurysm. Moderate aortoiliac calcification. Bones and soft tissues: No suspicious lesion in the bones. Fat-containing inguinal hernias again seen bilaterally. On the right, the hernia is increased in size, and again contains loops of nondilated small bowel, which is also increased from prior. IMPRESSION: No acute process. Right inguinal hernia containing loops of nondilated small bowel, is increased from prior. Cirrhosis. Electronically signed by Christiano Rizo 01-22-2025 3:40 PM Supervising Physician Co-Signing Physician Notes I personally examined the patient and verified all long points of history and exam, discussed case, and agree with decision making with Dr Monroy and Dr Kyle Amaya. Lightheadedness. Whiskey daily. Vitals noted, in general he is awake and alert fatigued but no distress. HEENT normocephalic atraumatic mucous membranes moist. Breathing unlabored no accessory muscle use good effort. Skin without rashes pallor or icterus. Neuro without focal deficits. Labs and diagnostics noted. Symptomatic anemia with BAUDILIO due to GI blood lossmost likely upper GI source/favor peptic ulcer disease (fortunately does not appear consistent with variceal bleeding, but with the alcohol abuse, I would suspect peptic ulcer disease spectrum. Acid suppression. IV fluid support. Type and crossbut fortunately no clear need for transfusion at this time. GI consultanticipate EGD alcohol abusediscussed that this would be the most likely reason for him having peptic ulcer disease. Briefly discussed cessation. At risk for withdrawal EVA S protocol; thiamine, folate. Elevated iron leveletiology not entirely clear. Await further labs, may need to get some degree of insight from hematology. shoulder and knee pain - will want to explore more once the above acute issues are more clearly stable otherwise as above
[2025-01-22] MEDS: LACTATED RINGER'S 1,000 ML IV SCH (17:13)
[2025-01-22] MEDS ORDERED: LORazepam Inj 2 MG in SYRINGE 1 ML IV PRN (18:16)
[2025-01-22] MEDS ORDERED: LORazepam Inj 3 MG in SYRINGE 1.5 ML IV PRN (18:16)
[2025-01-22] MEDS ORDERED: LORazepam Inj 1 MG in SYRINGE 0.5 ML IV PRN (18:16)
[2025-01-22] MEDS ORDERED: ALBUTEROL HFA 8 GM INHALER INH PRN (18:16)
[2025-01-22] MEDS ORDERED: prednisoLONE acetate 1% OP SUSP 5 ML BTL OP SCH (18:16)
[2025-01-22] MEDS ORDERED: SODIUM CHLORIDE 0.9% 100 ML IV PRN (18:16)
--- NOTE | 2025-01-22 18:29 | Billing Data ---
Date of Service January 22, 2025 Coding Level of Care Code 19704 INT INP/OBS CARE
[2025-01-22] MEDS: FAMOTIDINE 20 MG TAB PO ONE (20:07)
[2025-01-22] MEDS: AMIODARONE 200 MG TAB PO SCH (20:08)
[2025-01-22] MEDS: TAMSULOSIN HCL 0.4 MG CAP PO SCH (20:08)
[2025-01-22] MEDS: MOXIFLOXACIN HCL 0.5% OP SOLN 3 ML BTL OP SCH (20:11)
[2025-01-22] MEDS: PANTOprazole 40 MG/10 ML SYR IV SCH (20:13)
[2025-01-22] MEDS: INSULIN ASPART PER UNIT CHARGE SC SCH (20:46)
[2025-01-22 21:23] LABS: Iron 56.0 mcg/dl (35-175); Total Iron Binding Cap Calc 419.0 mcg/dl (250-450); Transferrin 299.0 mg/dl (200-360); Transferrin (FE) Percent Satur 13.0 % (20-50)
[2025-01-22 21:43] LABS: Ferritin 9.6 ng/ml (8-388); Hematocrit (blood only) 26.1 % (42.0-52.0); Hemoglobin 8.5 g/dl (14.0-18.0)
[2025-01-23 08:04] LABS: Hematocrit (blood only) 25.4 % (42.0-52.0); Hemoglobin 8.0 g/dl (14.0-18.0); Mean Corpuscular Hemoglobin 30.4 pg (25.0-34.0); Mean Corpuscular Volume 96.6 fL (80.0-100.0); Platelet Count 76 K/uL (130-400); RDW Standard Deviation 52.4 fL (36.4-46.3); Red Blood Count 2.63 M/uL (4.70-6.10); White Blood Count 2.72 K/ul (4.8-10.8)
[2025-01-23 08:19] LABS: Anion Gap 5.0 (3-11); Blood Urea Nitrogen 18.0 mg/dl (6-23); Calcium 8.5 mg/dl (8.6-10.3); Carbon Dioxide 25.0 mmol/L (21-32); Chloride 110.0 mmol/L (98-107); Creatinine Clr Calc Pharmacy 76.4 ml/min; Glucose 96.0 mg/dl (70-99(Fasting)); Potassium 3.9 mmol/L (3.5-5.1); Sodium 140.0 mmol/L (136-145)
[2025-01-23] MEDS ORDERED: CLOPIDOGREL BISULFATE 75 MG TAB PO SCH (09:00)
[2025-01-23] MEDS: FLUTICASONE PROPIONATE NA SPR 16 GM BTL SCH (09:55)
[2025-01-23] MEDS: UMECLIDINIUM/VILANTEROL 62.5/25MCG 7 PUFFS/INHALER INH SCH (09:55)
[2025-01-23] MEDS: EMPAGLIFLOZIN 10 MG TAB PO SCH (09:57)
[2025-01-23] MEDS: MULTIVITAMIN TAB PO SCH (09:57)
[2025-01-23] MEDS: ATORVASTATIN 20 MG TAB PO SCH (09:57)
[2025-01-23] MEDS: VIBEGRON 75 MG TAB PO SCH (09:57)
[2025-01-23] MEDS: METOPROLOL SUCC 50MG EXT REL TAB PO SCH (09:58)
[2025-01-23] MEDS: FOLIC ACID 1 MG in SYRINGE 9.8 ML IV SCH (10:01)
[2025-01-23] MEDS: THIAMINE HCL 200 MG in SODIUM CHLORIDE 0.9% 50 ML IV SCH (10:20)
--- NOTE | 2025-01-23 10:28 | Gastrointestinal Consultation ---
Date of Consultation January 23, 2025 Assessment & Plan (1) Black stools: -Continue IV Protonix gtt -Continue to monitor H/H -Keep NPO for EGD today for further evaluation Supervising Physician Co-Signing Physician Notes I personally saw and examined the patient. I have reviewed the chart and agree with the documentation provided by the MILLRO[employer] SUPERVISOR including discussion about the assessment, treatment and plan. Briefly, 69 yo male with PMH of Afib & STAR. He is accompanied by family members at bedside. GI has been consulted due to reports of black stool for several months. Daughter reports that the black stool worsened when he was put on Eliquis in October 2024 due to A fib. He has a history of alcohol abuse and liver cirrhosis with pancytopenia. EGD in 2023 did not demonstrate any varices. He follows with hematology for his iron deficiency anemia. He does take iron supplementation. Since October 2024, his hemoglobin did decline from 12.5 to 8.0. Stool is charted as black. BUN normal. Creatinine normal. Colonoscopy in 2023 showed internal hemorrhoids and 2 polyps. Given his use of Eliquis, we will evaluate for portal gastropathy peptic ulcer disease or GAVE. If the EGD is negative he will need an outpatient capsule endoscopy. N.p.o. for now History of Present Illness Reason for Consultation: Melena Attending Physician: Tacho Elizondo DO History of Present Illness Patient is a 69 yo male with PMH of Afib & STAR. He is accompanied by family members at bedside. GI has been consulted due to reports of black stool for several months. Daughter reports that the black stool worsened when he was put on Eliquis in October 2024 due to A fib. He has a history of alcohol abuse and liver cirrhosis with pancytopenia. EGD in 2023 did not demonstrate any varices. He follows with hematology for his iron deficiency anemia. He does take iron supplementation. Since October 2024, his hemoglobin did decline from 12.5 to 8.0. Stool is charted as black. BUN normal. Creatinine normal. Colonoscopy in 2023 showed internal hemorrhoids and 2 polyps. No abdominal pain at present. He is currently on an IV PPI. Allergies Allergy/AdvReac Type Severity Reaction Status Date / Time No Known Allergies Allergy Verified 01/13/25 13:01 Home Medications Medication Instructions Recorded Confirmed Type metformin 500 mg tablet 500 mg PO BID 05/28/23 01/22/25 History atorvastatin 20 mg tablet 10 mg PO QAM 09/07/24 01/22/25 History carvedilol 12.5 mg tablet 0 mg PO QAM 09/07/24 01/22/25 History clopidogrel 75 mg tablet (Plavix) 75 mg PO QAM 09/07/24 01/22/25 History famotidine 20 mg tablet 0 mg PO HS 09/07/24 01/22/25 History ferrous sulfate 325 mg (65 mg 0 mg PO QAM 09/07/24 01/22/25 History iron) tablet fluticasone propionate 50 0 spray intranasal QAM 09/07/24 01/22/25 History mcg/actuation nasal spray,suspension furosemide 20 mg tablet (Lasix) 0 mg PO QAM 09/07/24 01/22/25 History meloxicam 15 mg tablet 0 mg PO QAM 09/07/24 01/22/25 History multivitamin 1 tab PO QAM 09/07/24 01/22/25 History sitagliptin phosphate 50 mg tablet 0 mg PO QAM 09/07/24 01/22/25 History (Januvia) apixaban 5 mg tablet (Eliquis) 5 mg PO BID #60 tabs 10/03/24 01/22/25 Rx amiodarone 200 mg tablet 200 mg PO UD 11/02/24 01/22/25 History albuterol sulfate 90 mcg/actuation 2 inh inhalation QID PRN sob 12/29/24 01/22/25 History aerosol inhaler (Ventolin HFA) umeclidinium 62.5 mcg-vilanterol 1 inh inhalation DAILY #60 ea 12/29/24 01/22/25 Rx 25 mcg/actuation powdr for inhalation (Anoro Ellipta) mirabegron 50 mg tablet,extended 50 mg PO QAM #90 tabs 01/13/25 01/22/25 Rx release 24 hr (Myrbetriq) tadalafil 5 mg tablet 5 mg PO QAM #90 tabs 01/13/25 01/22/25 Rx tamsulosin 0.4 mg capsule 0.4 mg PO Q12H #180 caps 01/13/25 01/22/25 Rx empagliflozin 10 mg tablet 10 mg PO DAILY 01/22/25 01/22/25 History (Jardiance) metoprolol succinate 100 mg 100 mg PO DAILY 01/22/25 01/22/25 History tablet,extended release 24 hr pantoprazole 40 mg tablet,delayed 40 mg PO BID 01/22/25 01/22/25 History release Patient History Medical History CAD (coronary artery disease) History of atrial fibrillation Presence of combination internal cardiac defibrillator (ICD) and pacemaker Monomorphic ventricular tachycardia Liver cirrhosis, alcoholic Stage 4 History of myocardial infarction [address] Ogden/[facility] Hypertension Hyperlipidemia Chronic obstructive pulmonary disease Diabetes mellitus, type 2 Hypogonadism male Multiple thyroid nodules Per records, patient unsure Carotid artery disease Idiopathic polyneuropathy Cardiomyopathy Combined ischemic/non-ischemic cardiomyopathy Surgical History Hx of cardiac cath Per cardio record: "prior catheterization which was done in October 2022 back in [place] that catheterization showed normal left main LAD with fully patent stents in the proximal and mid LAD diagonal vessel had a severe 70% ostial stenosis followed by patent stents with PAKO grade III flow. This was treated medically his circumflex is dominant calcified but with minor atheroma the RCA is nondominant small vessel with a proximal severe 80% stenosis which is also being treated medically. To that catheterization that he underwent his ICD placement when he got to the [facility]." Hx of right cataract extraction (09/20/24) History of liver biopsy H/O knee surgery ? side History of esophagogastroduodenoscopy (EGD) History of colonoscopy History of cholecystectomy History of tooth extraction Status post implantation of automatic cardioverter/defibrillator (AICD) 2022 implanted [place] at [place] checks defib for yearly checks ([employer]) Family History Other No family history of adverse response to anesthesia No pertinent family history Social History Smoking Status: Current every day smoker Tobacco Type: Cigarettes Age Started Using Tobacco: 19; Age Quit Using Tobacco: 62; packs per day: 1; Cigarettes Per Day: 5-7; Second Hand Exposure: No; Do You Dip or Chew Tobacco: No; Tobacco Cessation Education Requested by Patient: No Hx Alcohol Use: Yes Alcohol type: hard liquor Hx Substance Use: No Preferred Language: Montenegrin Communication Ability: Effective Farm Truck Driver Required: No Beliefs That Will Affect Care: None Current Living Situation: Family Current Living Situation Comment: Son Other Information That Helps Us Care for You: No Feels Safe at Home: Yes Safety Concerns: Feels Safe At This Time Assistive Devices: None Review of Systems Cardiovascular: no chest pain Gastrointestinal: + melena; no abdominal pain, no heartbur n, no vomiting, no coffee ground emesis and no hematemesis Physical Exam Constitutional: well developed Gastrointestinal (Abdomen): normal bowel sounds, soft, nontender, no hepatosplenomegaly Results & Data Vital Signs (Past 12 Hours) Vital Signs Temp Pulse Pulse Resp BP Pulse Ox O2 Del Method 01/23/25 07:48 36.5 C 66 16 112/63 94 Room Air 01/23/25 07:24 60 01/23/25 04:00 36.4 C L 80 18 96/55 L 93 Room Air 01/22/25 23:37 36.7 C 61 16 110/59 L 93 Room Air PG Care Time/CCT Total # of Minutes Spent Total Time Spent with Patient: Total time spent is greater than 50% in coordination of care (as documented) at patient's floor/unit and/or counseling patient: Coding Level of Care Code 37397 INT INP/OBS CARE 3/75MIN Diagnoses Black stools K92.1
[2025-01-23 12:32] LABS: Hematocrit (blood only) 26.4 % (42.0-52.0); Hemoglobin 8.6 g/dl (14.0-18.0)
--- NOTE | 2025-01-23 13:34 | Hospitalist Progress Note ---
Date of Service January 23, 2025 Assessment & Plan (1) Black stools: (2) Upper gastrointestinal bleeding: (3) Anemia: (4) Cirrhosis of liver: (5) Imbalance: (6) Dizziness: (7) Alcohol abuse: (8) Smoker: (9) Pancytopenia: Plan Patient is a pleasant 69 year old male with history of alcohol abuse, tobacco use (currently smokes 5-7 cigarettes a day but has 60pky history), prior upper GI bleed, cirrhosis, prior DC with current pacemaker for paroxysmal afib, and past blood transfusion, presented into the ED with dizziness when first standing up, pain in his feet and shoulders B/L, and black stools. Admitting for suspected upper GI bleed, pt requires inpatient admission for medical stabilization and further workup into suspected bleed. Black Stools/Upper GI Bleed/cirrhosis/dizziness -Has been having black stool for 5-8 months. Last BM was yesterday and was black. - remained hemodynamically stable this morning ; no further episodes of dizziness. Telemetry with paced rhythm HR 60s. - Hgb 8.9 on admission. 8.0 this morning. Afternoon repeat H&H 8.6 & 24. BUN 18. -Current Hgb is 8.9. Previous Hgb in 10/28 was 12.3. -Abd/pelvis CT scan showed splenomegaly most likely from portal hypertension and a cirrhotic liver. - continue IV protonix 40 mg BID ; one dose of pepcid 20mg given on admission - GI consulted and patient scheduled for EGD later this afternoon. - continue NPO until after EGD - eliquis on hold - Type and cross 2 bags of blood for possible blood transfusion. If Hgb is <7.0 will transfuse. -LR 110 ml/hr -Trend CBC w/o diff and BMP in the AM alcohol abuse - Drinks 3-4 "packs" of whiskey a day. His last drink was yesterday. Began EtOH withdrawal order set. Have Lorazepam to be used if patient experiences alcohol withdrawal. - continue withdrawal protocol - continue thiamine and folate BAUDILIO - resolved - baseline Cr 1.10. On admission Cr 1.49. Today 1.12 -Continue IVF fluids. - hold nephrotoxic drugs Elevated Iron -Patient is currently taking iron supplementation. -admission iron level is 331. repeat panel: iron 56, TIBC 419, transferrin 299, transferrin sat 13%, ferritin 9.6. - continue holding iron supplementation DVT - SCDs Dispo - plan for home d/c after results of EGD and patient remains stable. Admission and Anticipated Discharge Date Admission Date: January 22, 2025 Supervising Physician Co-Signing Physician Notes ATTESTATION I also saw the patient and confirmed long portions of the history and exam. I agree with the impression and plan in the resident documentation, and as summarized below. Patient without complaints this morning. Patient's family with questions regarding plan of care and desire for Watchman device as previously discussed with outpatient cardiology. EXAM Hemodynamically stable. Alert and oriented. NAD. CV regular Lungs Clear Abd SNT DATA Labs HgB 8.6 renal function stable ammonia normal IMPRESSION & PLAN Upper GI Bleed A-Fib Appreciate GI consultation EGD today Family has questions regarding timing of Watchman which mainly resolved around them leaving the country mid February for extended period of time. Reviewed any discussion would not begin until after determination of bleeding source and stability - I will review with outpatient cardiology to help coordinate. Additional per resident documentation Subjective patient seen and examined at bedside this morning. family was also at bedside. patient well-appearing, alert, awake, no acute distress. No overnight issues. No acute concerns today. Denies abdominal pain, N/V. Has been NPO, as he is planned for EGD later this afternoon. Denies chest pain, SOB. Review of Systems Review of Systems: as per subjective HPI Physical Exam Constitutional: WD/WN, vitals as above Respiratory: normal respiratory effort, lungs clear to auscultation Cardiovascular: RRR, no murmur, no edema Gastrointestinal (Abdomen): normal bowel sounds, soft, nontender, no hepatosplenomegaly Skin: no rashes, warm and dry Neurologic: no focal neurologic deficits Psychiatric: A+Ox3, euthymic affect Results & Data Results & Data Vital Signs (Past 12 Hours) Vital Signs Temp Pulse Pulse Resp BP Pulse Ox O2 Del Method 01/23/25 11:18 36.4 C L 62 16 127/74 95 Room Air 01/23/25 07:48 36.5 C 66 16 112/63 94 Room Air 01/23/25 07:24 60 01/23/25 04:00 36.4 C L 80 18 96/55 L 93 Room Air (4) Cirrhosis of liver Ascites presence: unspecified Hepatic cirrhosis type: unspecified hepatic cirrhosis Qualified Code(s): K74.60 - Unspecified cirrhosis of liver
--- NOTE | 2025-01-23 14:48 | Anesthesiology Consultation ---
Date of Service January 23, 2025 Assessment & Plan Chart Review Chart Review: Acceptable Risk for Surgery and Patient NOT seen in Pre Admission Testing Consults Requested none ASA ASA3 Proposed Anesthesia Anesthesia Type: MAC Risk / Benefits Reviewed With: PT / POA / Parent / Guardian, Accepts Plan and Informed Consent Obtained History Surgery Operation Date: 01/23/25 17:50 Proposed Procedures p Esophagogastroduodenoscopy Jose - Armando Garcia MD Height/Weight Height: 6 ft 4 in Weight: 103.1 kg Allergies Allergy/AdvReac Type Severity Reaction Status Date / Time No Known Allergies Allergy Verified 01/13/25 13:01 Medications Home Medications Medication Instructions Recorded Confirmed Last Taken metformin 500 mg tablet 500 mg PO BID 05/28/23 01/22/25 11/28/24 atorvastatin 20 mg tablet 10 mg PO QAM 09/07/24 01/22/25 11/28/24 carvedilol 12.5 mg tablet 0 mg PO QA 09/07/24 01/22/25 11/28/24 clopidogrel 75 mg tablet (Plavix) 75 mg PO QA 09/07/24 01/22/25 11/28/24 famotidine 20 mg tablet 0 mg PO HS 09/07/24 01/22/25 11/28/24 ferrous sulfate 325 mg (65 mg 0 mg PO QA 09/07/24 01/22/25 11/28/24 iron) tablet fluticasone propionate 50 0 spray intranasal PENDING SALE TO [facility] 09/07/24 01/22/25 09/19/24 mcg/actuation nasal spray,suspension furosemide 20 mg tablet (Lasix) 0 mg PO QA 09/07/24 01/22/25 11/28/24 meloxicam 15 mg tablet 0 mg PO QA 09/07/24 01/22/25 11/28/24 multivitamin 1 tab PO QA 09/07/24 01/22/25 11/28/24 sitagliptin phosphate 50 mg tablet 0 mg PO QAM 09/07/24 01/22/25 11/28/24 (Januvia) apixaban 5 mg tablet (Eliquis) 5 mg PO BID #60 tabs 10/03/24 01/22/25 11/28/24 amiodarone 200 mg tablet 200 mg PO UD 11/02/24 01/22/25 Unknown albuterol sulfate 90 mcg/actuation 2 inh inhalation QID PRN sob 12/29/24 01/22/25 Unknown aerosol inhaler (Ventolin HFA) umeclidinium 62.5 mcg-vilanterol 1 inh inhalation DAILY #60 ea 12/29/24 01/22/25 Unknown 25 mcg/actuation powdr for inhalation (Anoro Ellipta) mirabegron 50 mg tablet,extended 50 mg PO QAM #90 tabs 01/13/25 01/22/25 Unknown release 24 hr (Myrbetriq) tadalafil 5 mg tablet 5 mg PO QAM #90 tabs 01/13/25 01/22/25 Unknown tamsulosin 0.4 mg capsule 0.4 mg PO Q12H #180 caps 01/13/25 01/22/25 Unknown empagliflozin 10 mg tablet 10 mg PO DAILY 01/22/25 01/22/25 Unknown (Jardiance) metoprolol succinate 100 mg 100 mg PO DAILY 01/22/25 01/22/25 Unknown tablet,extended release 24 hr pantoprazole 40 mg tablet,delayed 40 mg PO BID 01/22/25 01/22/25 Unknown release Active Medications Generic Name Dose Route Start Last Admin Trade Name Freq PRN Reason Stop Dose Admin Atorvastatin Calcium 20 mg 01/23/25 09:00 01/23/25 09:57 Atorvastatin 20 Mg Tab PO 02/22/25 08:59 20 mg QAM AIDA Administration Empagliflozin 10 mg 01/23/25 09:00 01/23/25 09:57 Empagliflozin 10 Mg Tab PO 02/22/25 08:59 10 mg DAILY AIDA Administration Fluticasone Propionate 2 sprays 01/23/25 09:00 01/23/25 09:55 Fluticasone Propionate Na Spr 16 Gm Btl NA 02/22/25 08:59 2 sprays QAM AIDA Administration Lactated Ringer's 1,000 mls @ 110 mls/hr 01/22/25 16:45 01/23/25 11:16 Lr IV 01/25/25 16:44 110 mls/hr .Q9H6M AIDA Administration Thiamine HCl 200 mg/ Sodium 52 mls @ 210 mls/hr 01/23/25 09:00 01/23/25 11:17 Chloride IV 02/22/25 08:59 Infused QAM AIDA Infusion Folic Acid 1 mg/ Syringe 10 mls @ 5 mls/min 01/23/25 09:00 01/23/25 10:01 IV 02/22/25 08:59 5 mls/min QAM AIDA Administration Pantoprazole Sodium 40 mg in 10 mls @ 5 mls/min 01/22/25 21:00 01/23/25 10:04 Protonix IV 02/21/25 20:59 5 mls/min BID AIDA Administration Insulin Aspart 0 units 01/22/25 18:30 01/23/25 13:25 Insulin Aspart Per Unit Charge SC 02/21/25 18:29 Not Given Q6 AIDA Metoprolol Succinate 100 mg 01/23/25 09:00 01/23/25 09:58 Metoprolol Succ 50mg Ext Rel Tab PO 02/22/25 08:59 100 mg DAILY AIDA Administration Moxifloxacin HCl 1 drops 01/22/25 21:00 01/23/25 13:31 Moxifloxacin Hcl 0.5% Op Soln 3 Ml Btl OP 02/21/25 20:59 Not Given TID AIDA Multivitamins 1 tab 01/23/25 09:00 01/23/25 09:57 Multivitamin Tab PO 02/22/25 08:59 1 tab QAM AIDA Administration Tamsulosin HCl 0.4 mg 01/22/25 21:00 01/23/25 09:57 Tamsulosin Hcl 0.4 Mg Cap PO 02/21/25 20:59 0.4 mg Q12H AIDA Administration Umeclidinium/Vilanterol 1 puffs 01/23/25 09:00 01/23/25 09:55 Umeclidinium/Vilanterol 62.5/25mcg 7 Puffs/Inhaler INH 02/22/25 08:59 1 puffs DAILY AIDA Administration Vibegron 75 mg 01/23/25 09:00 01/23/25 09:57 Vibegron 75 Mg Tab PO 02/22/25 08:59 75 mg DAILY AIDA Administration NPO Date Last Intake of Fluids: 01/23/25 Time Last Intake of Fluids: 09:00 Last Intake of Fluids Comment: sip with meds Date Last Intake of Solids: 01/22/25 Time Last Intake of Solids: 17:30 Past Medical History Medical History CAD (coronary artery disease) History of atrial fibrillation Presence of combination internal cardiac defibrillator (ICD) and pacemaker Monomorphic ventricular tachycardia Liver cirrhosis, alcoholic Stage 4 History of myocardial infarction [address] Ogden[facility] Hypertension Hyperlipidemia Chronic obstructive pulmonary disease Diabetes mellitus, type 2 Hypogonadism male Multiple thyroid nodules Per records, patient unsure Carotid artery disease Idiopathic polyneuropathy Cardiomyopathy Combined ischemic/non-ischemic cardiomyopathy Past Family History Family History Other No family history of adverse response to anesthesia No pertinent family history Past Surgical History Surgical History Hx of cardiac cath Per cardio record: "prior catheterization which was done in October 2022 back in [place] that catheterization showed normal left main LAD with fully patent stents in the proximal and mid LAD diagonal vessel had a severe 70% ostial stenosis followed by patent stents with PAKO grade III flow. This was treated medically his circumflex is dominant calcified but with minor atheroma the RCA is nondominant small vessel with a proximal severe 80% stenosis which is also being treated medically. To that catheterization that he underwent his ICD placement when he got to the [facility]." Hx of right cataract extraction (09/20/24) History of liver biopsy H/O knee surgery ? side History of esophagogastroduodenoscopy (EGD) History of colonoscopy History of cholecystectomy History of tooth extraction Status post implantation of automatic cardioverter/defibrillator (AICD) 2022 implanted [place] at [place] checks defib for yearly checks ([employer]) Social History Smoking Status: Current every day smoker Smoking cigarettes per day: 5-7 Do You Dip or Chew Tobacco: No Hx Alcohol Use: Yes Alcohol type: hard liquor alcohol intake frequency: 3 or more drinks per day Hx Substance Use: No substance use type: does not use Review of Systems Constitutional: + weakness Respiratory: + dyspnea on exertion Gastrointestinal: + melena Physical Exam Vital Signs Last Vital Signs Temp 36.4 C L 01/23/25 14:31 Pulse 67 01/23/25 14:31 Resp 16 01/23/25 14:31 BP 134/71 01/23/25 14:31 Pulse Ox 96 01/23/25 14:31 O2 Del Method Room Air 01/23/25 14:31 Constitutional WD/WN, vitals as above no acute distress Eyes PERRL, conjunctivae normal, anicteric sclerae ENMT external ear and nose normal, oropharynx normal Mouth: + chipped teeth Thyromental Distance: > or= 3.5 Finger Breadths Mallampati Class: III Neck trachea midline, no thyromegaly normal visual inspection Respiratory normal respiratory effort, lungs clear to auscultation normal respiratory effort; no respiratory distress Auscultation: + diminished lung sounds Cardiovascular RRR, no murmur, no edema Rate/Rhythm: regular rate and regular rhythm Musculoskeletal Head/Neck/Chest: normocephalic and head atraumatic Spine: normal cervical ROM and no pain with cervical ROM Extremities: extremities normal to inspection and strength 5/5 throughout; full ROM of extremities Skin no rashes, warm and dry Neurologic moves all extremities Motor/Sensory: no sensory deficit Psychiatric A+Ox3, euthymic affect Testing Laboratory Results 01/23/25 12:16 01/23/25 07:36 PT 12.1 Seconds (9.0-12.0) H 01/22/25 13:32 INR 1.2 (0.9-1.1) H 01/22/25 13:32 Urine Color Yellow 01/22/25 14:27 Urine Appearance Clear (Clear) 01/22/25 14:27 Urine pH 5.5 (4.5-7.5) 01/22/25 14:27 Ur Specific [place] 1.025 (1.000-1.030) 01/22/25 14:27 Urine Protein Negative (Negative) 01/22/25 14:27 Urine Glucose (UA) 3+ (Negative) H 01/22/25 14:27 Urine Ketones Negative (Negative) 01/22/25 14:27 Urine Nitrite Negative (Negative) 01/22/25 14:27 Ur Leukocyte Esterase Negative (Negative) 01/22/25 14:27 Blood Type A Positive 01/22/25 14:07 Antibody Screen NEGATIVE 01/22/25 14:07 01/23/25 01/23/25 12:35 06:18 POC Glucose 100 H 91
--- NOTE | 2025-01-23 15:28 | Anesthesiology Progress Note ---
Date of Service January 23, 2025 Anesthesia Post Procedure Vital Signs Vital Signs: Temp Pulse Pulse Pulse Resp BP BP 01/23/25 15:22 72 16 113/63 01/23/25 14:31 36.4 C L 67 16 134/71 01/23/25 11:18 36.4 C L 62 16 01/23/25 07:48 36.5 C 66 16 01/23/25 07:24 60 01/23/25 04:00 36.4 C L 80 18 01/22/25 23:37 36.7 C 61 16 01/22/25 21:59 62 01/22/25 18:17 36.6 C 68 16 01/22/25 17:46 60 20 136/75 01/22/25 17:00 60 16 01/22/25 17:00 60 16 BP Pulse Ox O2 Del Method 01/23/25 15:22 94 Room Air 01/23/25 14:31 96 Room Air 01/23/25 11:18 127/74 95 Room Air 01/23/25 07:48 112/63 94 Room Air 01/23/25 07:24 01/23/25 04:00 96/55 L 93 Room Air 01/22/25 23:37 110/59 L 93 Room Air 01/22/25 21:59 01/22/25 18:17 149/79 H 96 Room Air 01/22/25 17:46 95 Room Air 01/22/25 17:00 126/78 95 Room Air 01/22/25 17:00 95 Room Air Pain Intensity Head: Pain Intensity: 5 Transfer of Care Handoff Completed per policy Notes Mental Status: alert / awake / arousable and participated in evaluation Patient Amnestic to Procedure: Yes Nausea / Vomiting: adequately controlled Pain: adequately controlled Airway Patency, RR, SpO2: stable & adequate BP & HR: stable & adequate Hydration State: stable & adequate Anesthetic Complications: no major complications apparent and Pt Satisfied with anesthetic care
--- NOTE | 2025-01-23 15:29 | GI REPORT ---
[facility] Patient: JAZLYN MELENDEZ : 1955 Sex at : Male Age: 69 Years Procedure: Upper GI endoscopy Date: 01/23/2025 Attending Physician: Armando Garcia MD Referring MD: Referred Self Indications: - Melena Medications: - Monitored Anesthesia Care Complications: - No immediate complications. Estimated Blood Loss: - Estimated blood loss: None. Procedure: - Prior to the procedure, a History and Physical was performed, and patient medications and allergies were reviewed. The patient's tolerance of previous anesthesia was also reviewed. The risks and benefits of the procedure and the sedation options and risks were discussed with the patient. All questions were answered, and informed consent was obtained. Prior Anticoagulants: The patient has taken Eliquis (apixaban), last dose was 1 day prior to procedure. ASA Grade Assessment: III - A patient with severe systemic disease. After reviewing the risks and benefits, the patient was deemed in satisfactory condition to undergo the procedure. - The egd scope was introduced through the mouth and advanced to the third part of the duodenum. - The upper GI endoscopy was accomplished without difficulty. - The patient tolerated the procedure well. Findings: - A small hiatal hernia was present. - Grade II varices were found in the lower third of the esophagus. They were medium in size. - Moderate portal hypertensive gastropathy was found in the gastric fundus and in the gastric antrum. - The examined duodenum was normal. - No active bleeding noted. The dark stools is likely from iron but cannot rule out small bowel sources. He also has likely intermittent bleeding from his portal hypertensive gastropathy. This is not amenable for laser. Suggestion only is to use a nonselective beta-janessa like nadolol Impression: - Small hiatal hernia. - Grade II esophageal varices. - Portal hypertensive gastropathy. - Normal examined duodenum. - No active bleeding noted. The dark stools is likely from iron but cannot rule out small bowel sources. He also has likely intermittent bleeding from his portal hypertensive gastropathy. This is not amenable for laser. Suggestion only is to use a nonselective beta-janessa like nadolol - No specimens collected. Recommendation: - Discharge patient to home (ambulatory). - Resume previous diet. - Continue present medications. - Resume Eliquis (apixaban) at prior dose in 2 days. - Return to primary care physician as previously scheduled. - Patient has a contact number available for emergencies. The signs and symptoms of potential delayed complications were discussed with the patient. Return to normal activities tomorrow. Written discharge instructions were provided to the patient. - Dual anticoagulation (plavix and eliquis) is going to be quite difficult given the patient's moderate portal hypertensive gastropathy and grade 2 varix. This is not amenable to laser. I would suggest nonselective beta-janessa. Patient should get an outpatient capsule endoscopy to rule out small bowel sources Procedure Code(s): - 47520, Esophagogastroduodenoscopy, flexible, transoral; diagnostic, including collection of specimen(s) by brushing or washing, when performed (separate procedure) Diagnosis Code(s): - K92.1, Melena (includes Hematochezia) - K44.9, Diaphragmatic hernia without obstruction or gangrene - I85.00, Esophageal varices without bleeding - K76.6, Portal hypertension - K31.89, Other diseases of stomach and duodenum CPT(R) - 2023 copyright [employer]. All Rights Reserved. The CPT codes, CCI edits and ICD codes generated are intended as suggestions and were generated based on input data. These codes are preliminary and upon sql server dba review may be revised to meet current compliance and payer requirements. The provider is responsible for the final determination of appropriate codes, and modifiers. Armando Garcia MD This document has been electronically signed. Note Initiated:01/23/2025 Note Completed:01/23/2025 3:28 PM \\[email or web address]\Central\[email or web address]\Data\Provation\Results\LIVE\[id number]
[2025-01-23] MEDS: LIDOCAINE 2% 2 ML VIAL/AMP(20MG/ML) INFIL ONE (19:29)
[2025-01-23] MEDS: PROPOFOL IV EMULSION 10 MG/ML 20 ML VIAL IV ONE (19:29)
[2025-01-23] MEDS ORDERED: GLUCOSE 10 TAB/TUBE PO PRN (19:45)
[2025-01-23] MEDS ORDERED: DEXTROSE 50% 50 ML SYRINGE IV PRN (19:45)
[2025-01-23] MEDS ORDERED: GLUCAGON FOR INJ 1 MG VIAL SQ PRN (19:45)
[2025-01-23] MEDS ORDERED: GLUCOSE 40% GEL 15 GM TUBE PO PRN (19:45)
[2025-01-23] MEDS ORDERED: CARBOHYDRATES FOR HYPOGLYCEMIA PO PRN (19:45)
[2025-01-23] MEDS: INSULIN ASPART PER UNIT CHARGE SC SCH (20:16)
[2025-01-23] MEDS: MELATONIN 3 MG TAB PO PRN (20:21)
[2025-01-24 06:33] LABS: Hematocrit (blood only) 27.3 % (42.0-52.0); Hemoglobin 8.5 g/dl (14.0-18.0); Mean Corpuscular Hemoglobin 31.1 pg (25.0-34.0); Mean Corpuscular Volume 100.0 fL (80.0-100.0); Platelet Count 84 K/uL (130-400); RDW Standard Deviation 54.0 fL (36.4-46.3); Red Blood Count 2.73 M/uL (4.70-6.10); White Blood Count 3.12 K/ul (4.8-10.8)
[2025-01-24 06:38] LABS: Anion Gap 6 (3-11); Blood Urea Nitrogen 20 mg/dl (6-23); Calcium 8.6 mg/dl (8.6-10.3); Carbon Dioxide 24 mmol/L (21-32); Chloride 109 mmol/L (98-107); Creatinine Clr Calc Pharmacy 69.6 ml/min; Glucose 107 mg/dl (70-99(Fasting)); Sodium 139 mmol/L (136-145)
[2025-01-24 07:16] LABS: Potassium 4.1 mmol/L (3.5-5.1)
[2025-01-24 07:57] VITALS: O2SAT 95
[2025-01-24 08:02] LABS: Magnesium 1.9 mg/dl (1.7-2.4)
[2025-01-24] MEDS: AMIODARONE 200 MG TAB PO SCH (09:08)
[2025-01-24 11:14] VITALS: PULSE 58; RESP 17; TEMP 97.9
[2025-01-24] MEDS ORDERED: ACETAMINOPHEN 325 MG TAB PO PRN (11:14)
[2025-01-24 11:31] VITALS: BP 129/67
--- NOTE | 2025-01-24 11:32 | Discharge Summary ---
Date of Service January 24, 2025 Admission HPI Per Admitting Provider Patient is a pleasant 69 year old male who presented into the ER with dizziness, feet and shoulder pain B/L, and black stools. Dizziness/Foot&Shoulder Pain -States that the dizziness, foot and shoulder pain began 4-5 days ago that "came out of the blue" and has gotten worse. He states that when he first gets up out of a chair or sitting position he begins to feel dizzy. He also stated that he also has lost his sense of balance. He also noted the pain from his feet is from the knee down. Black Stools -Patient also reported that he has been having black stools for 5-8 months. His last bowel movement was yesterday and it was also black. The findings are confounded by the patient also taking iron supplementation. On his medication list he has meloxicam, but patient is not sure if he is still taking the medication. Reports that he smokes 5-7 cigarettes a day and drinks 3-4 packs of whiskey a day. His last drink was last night. -He also noted that he was given a blood transfusion 8 months ago for a low hemoglobin. Discussed with patient and he agreed to a blood transfusion. -Admitted to shortness of breath when he first stands up. At rest patient does not feel dizzy. -Denies fever, N/V/D, abdominal pain, swelling in his legs, abdominal distension, and hemoptysis. -Denied history of DVT and stroke. However, does have history of [place] and has a pacemaker. Principal Diagnosis upper GI bleed esophageal varices portal hypertensive gastropathy BAUDILIO Discharge Exam Constitutional WD/WN, vitals as above Respiratory normal respiratory effort, lungs clear to auscultation Cardiovascular RRR, no murmur, no edema Gastrointestinal (Abdomen) normal bowel sounds, soft, nontender, no hepatosplenomegaly Skin no rashes, warm and dry Psychiatric A+Ox3, euthymic affect Discharge Data Allergies Allergy/AdvReac Type Severity Reaction Status Date / Time No Known Allergies Allergy Verified 01/13/25 13:01 Consultations 01/22/25 15:15 ED Decision to Admit Stat 01/22/25 16:35 Consult Gastroenterology Routine Procedures Performed Operation Date: 01/23/25 17:50 Actual Procedures p Esophagogastroduodenoscopy - Armando Garcia MD Ordered Studies 01/22/25 14:32 CT abd pelvis wo con Stat Hospital Course (1) Black stools: (2) Upper gastrointestinal bleeding: (3) Anemia: (4) Cirrhosis of liver: (5) Imbalance: (6) Dizziness: (7) Alcohol abuse: (8) Smoker: (9) Pancytopenia: Plan Patient is a pleasant 69 year old male with history of alcohol abuse, tobacco use (currently smokes 5-7 cigarettes a day but has 60pky history), prior upper GI bleed, cirrhosis, prior [place] with current pacemaker for paroxysmal afib, and past blood transfusion, presented into the ED with dizziness when first standing up, pain in his feet and shoulders B/L, and black stools. Admitting for suspected upper GI bleed, pt requires inpatient admission for medical stabilization and further workup into suspected bleed. Black Stools/Upper GI Bleed/cirrhosis/dizziness -Has been having black stool for 5-8 months. Currently taking iron supplement for anemia. H&H stable throughout admission. Patient hemodynamically stable during exam today. Telemetry with paced rhythm with HR 60s. - Discharge H&H 8.5 & 27.3. BUN 20. - Abd/pelvis CT scan showed splenomegaly most likely from portal hypertension and a cirrhotic liver. - managed during admission with IV protonix 40 mg BID ; one dose of pepcid 20mg given on admission - GI consulted and patient scheduled for EGD later this afternoon. - underwent EGD 01/23/25 which showed grade II esophageal varices and portal hypertensive gastropathy. Per GI recommendations, patient's metoprolol was switched to nadolol to prevent variceal rupture. On discharge, patient is to take nadolol 40 mg daily at bedtime. He is to have strict follow-up with PCP within 2-3 days of discharge to evaluation medication tolerance. - There was no active bleed appreciated on EGD, however small bowel bleeding cannot be ruled out. Recommended outpatient capsule endoscopy for further small bowel bleed evaluation. - Eliquis was held during admission due to bleeding concern. Can resume tomorrow 01/25/25. alcohol abuse - Drinks 3-4 "packs" of whiskey a day. His last drink was day prior to admission. Patient on alcohol withdrawal protocol during admission, however remained hemodynamically stable and without withdrawal symptoms. Was initiated on thiamine and folate supplement which can be continued after discharge. - had a long discussion with patient and family regarding alcohol cessation and the detrimental side effect of continuing to drink with esophageal varices, portal hypertension and cirrhosis including esophageal rupture, bleeding and even . Was given recovery resources on discharge. BAUDILIO - resolved - baseline Cr 1.10. On admission Cr 1.49. Today 1.23 - managed with IV fluids Elevated Iron - patient currently taking iron supplementation. repeat panel: iron 56, TIBC 419, transferrin 299, transferrin sat 13%, ferritin 9.6. - continue holding iron supplementation. Could be the result of the black, tarry stool patient was experiencing. Discuss with PCP on resuming supplement. DVT - SCDs Dispo - plan for home d/c today Total Time Total Time Spent Total Time Spent (In Minutes): Tacho Cai DO, attending physician, spent 35 minutes myself seeing the patient, reviewing the chart, and documenting today. Discharge Plan Discharge Items Patient Disposition: Home - Self-Care Reason For Visit: DIZZINESS,FOOT AND SHOULDER PAIN B/L,BLACK STOOLS Discharge Diagnosis: upper GI bleed grade II esophageal varices Condition on Discharge: Serious Activity: Per Instructions section Non-emergency contact: Primary Care Provider Call non-emergency contact if: you have any medication questions, your symptoms worsen, your pain is not controlled and you have a fever Follow-up/Referrals: Dwaine Guzman DO [Primary Care Provider] - 01/27/25 10:40 am Diet: Heart Healthy Addtl Attending Provider Instructions: You were admitted to [facility] for evaluation of black stool which was suspected to be due an upper GI bleed. You underwent an EGD yesterday and you were found to have grade II esophageal varices (enlarged and twisted veins) and portal hypertension gastropathy (irritation of the stomach lining due to increased pressures in the blood vessels supplying the liver and stomach). These varices were not bleeding, therefore it is likely that your black stool was the result of your iron supplement. Because of the EGD findings, your metoprolol was switched to nadolol, a non- selective beta-janessa. After discharge, please take nadolol 40mg daily at bedtime. This medication can cause some dizziness and lightheadedness, increasing risk of fall. If these symptoms occur, please contact your PCP. Your Eliquis has been held during admission because of the suspected bleeding. This can be resumed starting tomorrow at your normal home dose. Please follow-up with [facility] this week for follow-up of this hospital visit ad medication change. We also discussed your alcohol use during this visit. Because of the varices and cirrhosis (scarring of your liver), alcohol can worsen these conditions and lead to further complications including high risk of bleeding/variceal rupture. Attached are resources for AA, alcohol withdrawal, and recovery. Medications STOP: metoprolol 100mg ; clopidogrel 75mg (Plavix) RESUME: Eliquis 5mg twice daily on 01/25/25 (tomorrow) START: nadolol 40 mg daily at bedtime. Continue taking other medications as prescribed. Pending Studies at Discharge: No Stand-Alone Forms: My [facility], Smoking Cessation Medications and DC Order Prescriptions: New nadolol 40 mg Tablet 40 mg PO HS Qty: 30 0RF Continued metformin 500 mg tablet 500 mg PO BID albuterol sulfate [Ventolin HFA] 90 mcg/actuation HFA aerosol inhaler 2 inh INHALATION QID PRN (Reason: sob) umeclidinium-vilanterol [Anoro Ellipta] 62.5-25 mcg/actuation blister with device 1 inh INHALATION DAILY Qty: 60 5RF tamsulosin 0.4 mg capsule 0.4 mg PO Q12H Qty: 180 3RF mirabegron [Myrbetriq] 50 mg tablet extended release 24 hr 50 mg PO QAM Qty: 90 3RF tadalafil 5 mg tablet 5 mg PO QAM Qty: 90 3RF multivitamin Tablet 1 tab PO QAM Patient Comments: 01/22- otc unable to verify atorvastatin 20 mg Tablet 10 mg PO QAM Patient Comments: 01/22-last filled as 10 mg 11/01 90 day supply #90. No fill history for 20mg carvedilol 12.5 mg Tablet 0 mg PO QAM Patient Comments: 01/22- no fill history unable to verify Rx Instructions: must administer with a meal/food meloxicam 15 mg Tablet 0 mg PO QAM Patient Comments: 01/22- no fill history unable to verify famotidine 20 mg Tablet 0 mg PO HS ferrous sulfate 325 mg (65 mg iron) Tablet 0 mg PO QAM Patient Comments: 01/22-last filled 06/10 280 day supply furosemide [Lasix] 20 mg Tablet 0 mg PO QAM Patient Comments: 01/22- no fill history unable to verify fluticasone propionate 50 mcg/actuation [place],Suspension 0 spray INTRANASAL QAM Patient Comments: 01/22- last filled 07/15 15 day supply Rx Instructions: administer into each nostril Januvia 50 mg Tablet 0 mg PO QAM Patient Comments: 01/22- no fill history unable to verify pantoprazole 40 mg tablet,delayed release (DR/EC) 40 mg PO BID Jardiance 10 mg tablet 10 mg PO DAILY amiodarone 200 mg tablet 200 mg PO UD Rx Instructions: 200mg BID for 2 weeks, then once daily Held Eliquis 5 mg tablet 5 mg PO BID Qty: 60 0RF Hold Instructions: Resume on 01/25/25. Discontinued clopidogrel [Plavix] 75 mg tablet 75 mg PO QAM metoprolol succinate 100 mg tablet extended release 24 hr 100 mg PO DAILY Discharge Orders: Discharge Order (Routine); Ordered 01/24/25 Ordered By: Yu Layton/Other Patient Handouts: Alcohol and Older Adults, Esophageal Varices, Alcoholism: Getting Help Admission Data Admit Date/Time: 01/22/25 17:00 Attending Provider: Tacho Elizondo Admit Provider: Leobardo Monroy Primary Care Provider: Dwaine Guzman Other Providers: Joby Lucas; Armando Garcia Other Interventions: Discharge Summary Assessment (RN) Last Done: 01/24/25 11:30 Supervising Physician Co-Signing Physician Notes ATTESTATION I also saw the patient and confirmed long portions of the history and exam. I agree with the impression and plan in the resident documentation, and as summarized below. fairly lengthy discussion with patient and family at bedside regarding goals of this hospitalization, medication changes, and needs follow- up. The patient tells me that the main reason he came to the hospital was for his knee and shoulder pain; we discussed that these will be addressed as an outpatient. While he came for this pain, the reason he was admitted was concern for upper GI bleeding with his dark stools. We reviewed the findings of his endoscopy which included varices. We discussed the transition from metoprolol to nadolol in light of the varices. I had discussed this with his brass buffer. We discussed that the transition between beta-blockers is not an exact science, and there will need to be some adjustment. We discussed keeping him for another night to continue titration and watching his heart rate/blood pressure. He was pretty adamant about discharge; we will to work this out with close clinical follow-up as an outpatient. He and his family are also very interested in the Watchman device. Given the complications of systemic anticoagulation, the Watchman device does seem appropriate. Furthermore, the family is going away (out of the country) for an extended time and they are hoping to get the Watchman device procedure completed before they leave in mid February. Will I could not guarantee this can be done, I did reach out to his outpatient brass buffer to see if I could fac ilitate an earlier appointment to help move things along. EXAM Hemodynamically stable. Alert and oriented. NAD. CV regular Lungs Clear Abd SNT DATA Labs HgB 8.5, plt 84 renal function stable (04/04.) IMPRESSION & PLAN Upper GI Bleed Grade 2 esophageal varices A-Fib Pancytopenia, suspect secondary to cirrhosis, splenomegaly and EtOH induced marrow suppression Nadolol 40 mg daily; rough conversion of Toprol 100 mg is nadolol 40-80 mg Office follow up 2-3 days for further titration if needed Appointment with electrophysiology at [facility] Can resume Eliquis tomorrow Additional per resident documentation Resident Activity Tracking Resident Involvement: Resident Care Provided Care Provided: Adult Hospital Medicine
--- NOTE | 2025-01-26 13:03 | Electrocardiogram Report ---
Test Reason : Blood Pressure : */* mmHG Vent. Rate : 61 BPM Atrial Rate : 61 BPM P-R Int : 372 ms QRS Dur : 94 ms QT Int : 396 ms P-R-T Axes : * -14 89 degrees QTcB Int : 398 ms Atrial-paced rhythm with prolonged AV conduction Septal infarct Inferior infarct Abnormal ECG When compared with ECG of 10-Nov-2024 07:50, QRS duration has decreased Confirmed by Kasi Astudillo ([id number]) on 01/26/2025 1:03:28 PM Referred By: REFERRED SELF Confirmed By: Kasi Astudillo
== END 2025-01-24 11:48 | disposition home or self-care (01) | DRG 378 ==
LOC: ED 13:06 → SUATTDRO 16:39 → 2N 16:39 → INTOOBSV 17:00 → 2N 17:46